=== PATIENT | male | born 1945 ===

== ENCOUNTER 2022-07-26 12:04 | Inpatient (IN) | payer MEDICARE ==
[~2022-07-26] VITALS: Ht 177.8 cm; Wt 113.3 kg
--- NOTE | 2022-07-26 11:59 | PM&R Post Admission Assessment ---
PM&R HP Date of Visit: Jul 26, 2022 Time of Visit: 12:45 History of Present Illness CC: Left knee replacement uncomplicated with slow recovery HPI: This is a 76yoWM patient of Dr Brown who presented to [facility] from [facility] in need of aggressive rehab to return home. His pain is well controlled. Right knee is chronically painful and needs a replacement on that joint also in the future. CPM ordered. Bowels are moving and he has chronic constipation. Voiding well. Checked meds and labs. Home meds restarted. Pain meds were helping. is of ill health and will remain in the room with the patient 25/11. Past Baipepw-Dbzmnf-Kwdkfe Hx Past Med/Social Hx: Reviewed Nursing Past Med/Soc Hx, Reviewed and Corrections made Patient Social History Marrital Status: Employed/Student: retired Alcohol Use: Denies Use Smoking Status: Former Smoker Past Medical History Surgeries: Orthopedic Cardiac: Hypertension Gastrointestinal: Gastroesophageal Reflux, Chronic Constipation Musculoskeletal: Arthritis, Gout PM&R Allergy/Meds/Data Review Allergies Coded Allergies: NSAIDS (Non-Steroidal Anti-Inflamma (Verified Allergy, Unknown, 07/26/22) STOMACH PROBLEMS. Penicillins (Verified Allergy, Unknown, Rash, 07/26/22) Sulfa (Sulfonamide Antibiotics) (Verified Allergy, Unknown, 07/26/22) codeine (Verified Allergy, Unknown, 07/26/22) SHORTNESS OF BREATH/WHEEZING hydrocodone (Verified Allergy, Unknown, 07/26/22) meperidine (Verified Allergy, Unknown, 07/26/22) COUGH, STOPS BREATHING. Home Medications Scheduled Acetaminophen (Tylenol), 650 MG PO BID, (Reported) Allopurinol (Allopurinol), 300 MG PO HS, (Reported) Apixaban (Eliquis), 5 MG PO BID, (Reported) Chlorthalidone (Chlorthalidone), 25 MG PO DAILY, (Reported) L.acidoph & Paracasei,B.lactis (Probiotic), 1 EACH PO DAILY, (Reported) Multivitamin (Multivitamin), 1 EACH PO DAILY, (Reported) Pantoprazole Sodium (Pantoprazole Sodium), 40 MG PO HS, (Reported) Polyethylene Glycol 3350 (Miralax), 17 GM PO DAILY AFTER BRKFST, (Reported) Psyllium Husk/Aspartame (Metamucil Fiber Singles Packet), 1 PACKET PO 1800 W/DINNER, (Reported) Ubidecarenone (Co Q-10), 100 MG PO DAILY, (Reported) Scheduled PRN Dicyclomine HCl (Dicyclomine HCl), 10 MG PO QID PRN for GI UPSET/IBS SYMPTOMS, (Reported) Current Medications Current Medications Reviewed Review of Systems Constitutional: see HPI, malaise, weakness EENTM: no symptoms reported Respiratory: no symptoms reported Cardiovascular: no symptoms reported Gastrointestinal: constipation Genitourinary: no symptoms reported Musculoskeletal: back pain, joint pain Skin: no symptoms reported Psychiatric/Neurological: Depressed All Other Systems Reviewed Negative Unless Noted: Yes Physical Exam Physical Exam Vital Signs Capillary Refill : Height, Weight, BMI Height: '" Weight: lbs. oz. kg; BMI Method: General Appearance: No Apparent Distress, WD/WN, Chronically ill, Obese Eyes: Bilateral Eye Normal Inspection, Bilateral Eye PERRL HEENT: PERRL/EOMI, Normal ENT Inspection, Pharynx Normal Neck: Full Range of Motion, Normal Inspection, Non Tender, Supple, Carotid Bruit Respiratory: Chest Non Tender, Lungs Clear, Normal Breath Sounds, No Accessory Muscle Use, No Respiratory Distress Cardiovascular: Regular Rate, Rhythm, No Edema, No Gallop, No JVD, No Murmur, Normal Peripheral Pulses Gastrointestinal: Normal Bowel Sounds, No Organomegaly, No Pulsatile Mass, Non Tender, Soft Back: Normal Inspection, No CVA Tenderness, No Vertebral Tenderness Extremity: Normal Capillary Refill, Normal Inspection, Normal Range of Motion (except left leg and right leg is also limited), Non Tender, No Calf Tenderness, No Pedal Edema Neurologic/Psychiatric: Alert, Oriented x3, No Motor/Sensory Deficits, Normal Mood/Affect Skin: Normal Color, Warm/Dry Lymphatic: No Adenopathy PM&R Medical Assessment & Plan REHAB/MEDICAL ASSESSMENT AND PLAN: REHAB IMPAIRMENT GROUP: Left knee replacement ETIOLOGIC DIAGNOSIS: Left knee replacement The comorbidities that impact the patients function and/or functional outcome by: advanced age, right knee chronic pain, fall risk, chronic constipation, gout REHAB PLAN: The patient is being admitted to our comprehensive inpatient rehabilitation facility and can tolerate the intensity of service consisting of at least: 180 minutes of therapy a day, 5 out of 7 days a week Rehab treatment will consist of: PT OT will focus on regaining function with use of AD in order to return home with ADL independence with his dependent spouse The patient/family has a good understanding of our discharge process and will b enefit from an interdisciplinary inpatient rehabilitation program. The patient has potential to make improvement and is in need of at least two of the following multidisciplinary therapies including but not limited to physical, occupational, speech, and prosthetics and orthotics. Additionally the patient will need services from respiratory, nutritional services, wound care, psycho logy, etc. (Customize this to each patient). Given the patients complex condition and risk of further medical complications, rehabilitation services cannot be safely or effectively provided at a lower level of care such as a prison facility. BARRIERS TO DISCHARGE: Right knee pain and weakness s/p left knee replacement ESTIMATED LOS: 7 days DISPOSITION: Home RELEVANT CHANGES SINCE PREADMISSION SCREENING: I have compared the patients medical and functional status at the time of the preadmission screening and there are: no changes PROGNOSIS: Good REHABILITATION GOALS: 1. PT OT will focus on regaining function with use of AD in order to return home with ADL independence with his dependent spouse All the above goals were reviewed with the patient and he/she is in agreement. By signing this document, I acknowledge that I have personally performed a full physical examination on this patient within 24 hours of admission to this inpatient rehabilitation facility and have determined the patient to be able to tolerate the above course of treatment at an intensive level for a reasonable period of time. I will be completing a detailed individualized Plan of Care for this patient by day #4 of the patients stay based upon the Preadmission Screen, the Post-Admission Evaluation, and the therapy evaluations. Admission Dx/Comorbidities: (1) S/P total knee arthroplasty ICD Codes: Z96.659 - Presence of unspecified artificial knee joint Assessment/Plan Assessment and Plan Assess & Plan/Chief Complaint Assessment: s/p left total knee replacement Chronic right knee pain Gout HTN Obesity Chronic constipation Plan: BM regimen Pain meds Aggressive PT OT CPM PHIL ORTIZ DO Jul 26, 2022 11:59
[2022-07-26 12:00] VITALS: BP 151/87
[~2022-07-26 12:04] MED LIST: ACET325T38 PO; ACETAMINOPHEN 325 MG TABLET PO PRN; ALLO300T2 PO; ALPRAZolam 0.25 MG (XANAX) TAB PO PRN; APIX5TAB PO; BISACODYL 10 MG SUPP (DULCOLAX) PR PRN; CALCIUM CARBONATE 500 MG (TUMS) TAB.CHEW PO PRN; CHLO25TA22 PO; DICY10CA12 PO; DOCUSATE SODIUM 100 MG (COLACE) CAP PO PRN; FLEET ENEMA ADULT 1 EA BTL PR PRN; L.AC1CAP6 PO; LACTULOSE SYRUP 10GM/15ML (ENULOSE) 30ML UDC PO PRN; LOPERAMIDE 2 MG (IMODIUM) TABLET PO PRN; MELATONIN 3 MG TABLET PO PRN; MULT-1136 PO; ONDANSETRON 4 MG (ZOFRAN) ORAL DISSOLVE TAB PO PRN; PANT40TA52 PO; POLY17PO6 PO; PSYL3.4P5 PO; UBID100C44 PO; diphenhydrAMINE 25 MG TAB (BENADRYL) PO PRN
--- OUTSIDE RECORDS SUMMARY | 2022-07-26 12:15 | XMS REPORT | Encounter Summary ---
Author Author [facility] Organization [facility] Address Unknown Phone Unavailable Care Team Providers Care Nissan Sales Consultant Name Role Phone Naif Adams MD PCP Encounter Details Care Team Description Date Type Department Kwesi Delgado MD [address] [place] [address] 06/24/[address] [facility] Cardiology [address] , [facility] [address] [place] [address] Social History Date Tobacco Use Types Packs/Day Years Used Quit: 1974 Smoking Tobacco: Former Cigarettes Smokeless Tobacco: Never Comments Alcohol Use Standard Drinks/Week Never 0 (1 standard drink = 0.6 o z pure alcohol) Alcohol Habits Answer Date Recorded How often do you have a drink containing alcohol? Never 09/23/2019 How many drinks containing alcohol do you have on No t asked a typical day when you are drinking? How often do you have six or more drinks on one Not asked occasion? Sex Assigned at Date Recorded Male 09/24/2019 11:46 AM CDT Industry Job Start Date Occupation Not on file Not on file Not on file documented as of this encounter Miscellaneous Notes * Telephone Encounter - Noemy Rubio - 06/24/2022 10:56 AM CST Patient called and he is needing Eliquis 5MG refilled. However, he does not want it sent electronically to any pharmacy. He would like to come in and last picker the prescription to take to the pharmacy of his choosing. Please call Farzad at [phone] when the refill is put in so he knows when he can come pick it up. Thanks MACY PICKING TECH documented in this encounter Plan of Treatment Care Team Description Date Type Specialty Vladimir Gonzalez MD [address] [place] [address] 02/07/2023 Office Visit Cardiology documented as of this encounter Visit Diagnoses Not on filedocumented in this encounter Care Teams Start Date End Date Nissan Sales Consultant Relationship Specialty 12/10/17 Naif Adams MD PCP - General [place] [id number] [place] [address] documented as of this encounter
--- OUTSIDE RECORDS SUMMARY | 2022-07-26 12:15 | XMS REPORT | Clinical Summary ---
Author Author [facility] Address Unknown Phone Unavailable Care Team Providers Care Speeder Tender Name Role Phone Naif Adams MD PCP Allergies Comments Active Allergy Reactions Severity Noted Date Codeine Dyspnea High 11/08/2016 Hydrocodone Unknown 11/27/2017 Stops breathing. Meperidine Cough High 03/13/2020 STOMACH PROBLEMS Nsaids (Non-Steroidal Other (see 09/17/2021 Anti-Inflammatory Drug) comments) Penicillins Unknown, Medium 11/08/2016 Urticaria Sulfa (Sulfonamide Unknown 11/27/2017 Antibiotics) Medications End Date Status Medication Sig Dispensed Refills Start Date Active psyllium, aspartame, Take 1 packet 0 (METAMUCIL) 3.4 gram by mouth 1 packet (one) time each day. Active acetaminophen (TYLENOL) Take 650 mg 0 325 mg tablet by mouth every 6 (six) hours if needed for mild pain (1-3). Active allopurinol (ZYLOPRIM) Take 300 mg 0 300 mg tablet by mouth 1 (one) time each day. Active chlorthalidone (HYGROTON) Take 25 mg by 0 06/06 25 mg tablet mouth 1 (one) 0 time each day. Active busPIRone (BUSPAR) 15 mg Take 17.5 mg 0 02/22 tablet by mouth. 0 Active polyethylene glycol Take 17 g by 0 (MIRALAX) 17 gram/dose mouth. powder Active gabapentin (NEURONTIN) 0 300 mg capsule 2 Active Lactobacillus acidophilus Take by 0 (lactobacill.acidophilus, mouth. bulk,) 1 billion unit/gram powder Active Protonix 40 mg EC tablet Take by mouth 0 09/24 1 (one) time 2 each day. Active coenzyme Q10 100 mg Take 100 mg 0 capsule by mouth in the morning. Active quinapriL (AccupriL) 20 Take 1 tablet 0 mg tablet (20 mg total) 2 by mouth 1 (one) time each day. 06/24/2023 Active apixaban (ELIQUIS) 5 mg Take 1 tablet 180 tablet 3 tablet (5 mg total) 3 by mouth 2 (two) times per day. Active Problems Problem Noted Date BMI 37.0-37.9, adult 12/06/2020 Benign hypertensive heart disease without congestive heart failure 06/09/2020 Personal history of tobacco use 06/09/2020 Class 2 obesity in adult 06/09/2020 Nonrheumatic mitral (valve) insufficiency 11/27/2017 Other nonrheumatic tricuspid valve disorders (CODE) 11/27/2017 Hyperlipidemia 11/27/2017 Essential (primary) hypertension 11/27/2017 Permanent atrial fibrillation 11/27/2017 Other hypertrophic cardiomyopathy 11/27/2017 Permanent atrial fibrillation 11/27/2017 Encounters Care Team Description Date Type Specialty Kwesi Delgado MD 06/24/2022 Telephone Cardiology Blob, Scan Provider 05/15/2022 Clinic Scan Only Encounter Key Juárez RN cardiac clearance 05/15/2022 Telephone Cardiology from Last 3 Months Family History Medical History Relation Comments Heart disease Father Hypertension Father Breast cancer Mother Heart murmur Mother ETHEL disease Sister No Known Problems Son 1 Heart failure Son 2 Relation Status Comments Father Mother Sister Alive Son 1 Alive Son 2 Social History Date Tobacco Use Types Packs/Day Years Used Quit: 1973 Smoking Tobacco: Former Cigarettes Smokeless Tobacco: Never [...] file Not on file Not on file Last Filed Vital Signs Reading Time Taken Comments Vital Sign 138/78 12/19/2021 1:56 PM CDT Blood Pressure 79 12/19/2021 1:56 PM CDT Pulse - - Temperature 10 12/19/2021 1:56 PM CDT Respiratory Rate 96% 12/19/2021 1:56 PM CDT Oxygen Saturation - - Inhaled Oxygen Concentration 120 kg (264 lb) 12/19/2021 1:56 PM CDT Weight 177.8 cm (5' 10") 12/19/2021 1:56 PM CDT Height 37.88 12/19/2021 1:56 PM CDT Body Mass Index Plan of Treatment Care Team Description Date Type Specialty Vladimir Gonzalez MD [address] [place] [address] 02/07/2023 Office Visit Cardiology Health Maintenance Due Date Last Done Comments MMR Vaccines (1 of 1 - 1945 Standard series) Varicella Vaccines (1 of 1945 2 - 2-dose childhood series) Depression Screening 1956 Hepatitis C Screening 1962 Zoster Vaccines (1 of 2) 1994 Pneumococcal 65+ Yr (1 - 2009 PCV) DTaP,Tdap,and Td Vaccines 01/17/2010 01/16/2010, (1 - Tdap) 10/03/1993 Medicare Wellness 01/18/2021 01/19/2020 COVID-19 Vaccine (5 - 10/16/2021 08/21/2021, Booster for Moderna 03/07/2021, series) 06/27/2020, Additional history exists Influenza Vaccine Completed 01/14/2022, 01/19/2020 HIB Vaccines Aged Out No longer eligible based on patient's age to complete this topic HPV Vaccines Aged Out No longer eligible based on patient's age to complete this topic Hepatitis A Vaccines Aged Out No longer eligibl e based on patient's age to complete this topic Hepatitis B Vaccines Aged Out No longer eligibl e based on patient's age to complete this topic IPV Vaccines Aged Out No longer eligible based on patient's age to complete this topic Meningococcal Vaccine Aged Out No longer eligib le based on patient's age to complete this topic Results Not on filefrom Last 3 Months Insurance Type Payer Benefit Subscriber ID Effective Phone Address Plan / Dates Group MEDICARE MEDICARE [id number] 2009-P 2019 PART A AND resent [id number] [facility] [id number] [facility] [id number] 2017-P [phone] [address] [facility] [address] [id number] [place] [address] Care Teams Start Date End Date Speeder Tender Relationship Specialty 12/10/17 Naif Adams MD PCP - General [facility] [place] [address]
--- NOTE | 2022-07-26 13:06 | Occupational Therapy Eval ---
OT Evaluation-General/PLF Medical Diagnosis Admission Date Jul 26, 2022 at 12:04 Medical Diagnosis: S/P L TKA Onset Date: Aug 23, 2022 Therapy Diagnosis Therapy Diagnosis: decreased ADL status Precautions Precautions/Isolations: Fall Prevention, Standard Precautions Referral Physician: Heidi Franklin Reason: Evaluation/Treatment Medical History Additional Medical History afib, gastric ulcer, GERD, HTN, IBS, arthritis, R ankle fusion (per pt report) Current History s/p L TKA 07/24/22 Social History Home: Single Level Current Living Status: Spouse Entry Into Home: Level Entry (through garage) ADL-Prior Level of Function SCALE: Activities may be completed with or without assistive devices. 4-Szuaqafkkq-ndqnnai completes the activity by him/herself with no assistance from a helper. 5-Set-up or Clean-up Assistance-helper sets up or cleans up; patient completes activity. [place] assists only prior to or following the activity. 4-Supervision or Touching Assistance-helper provides verbal cues and/or touching/steadying and/or contact guard assistance as patient completes activity. Assistance may be provided throughout the activity or intermittently. 3-Partial/Moderate Assistance-helper does LESS THAN HALF the effort. [place] lifts, holds or supports trunk or limbs, but provides less than half the effort. 2-Substantial/Maximal Assistance-helper does MORE THAN HALF the effort. [place] lifts or holds trunk or limbs and provides more than half the effort. 8-Jrsuatkqm-ipsthb does ALL the effort. Patient does none of the effort to complete the activity. Or, the assistance of 2 or more helpers is required for the patient to complete the activity. If activity was not attempted, code reason: 7-Patient Refused. 9-Not Applicable-not attempted and the patient did not perform the activity before the current illness, exacerbation or injury. 10-Not Attempted due to Environmental Limitations-(lack of equipment, weather restraints, etc.). 88-Not Attempted due to Medical Conditions or Safety Concerns. ADL PLOF Comments Pt reports IND with ADLs and functional mobility at [facility]. Pt has used b/l crutches for ~1 year, and 1 crutch for the last 6-8 years for functional mobility. Self Care: Independent Functional Cognition: Independent DME/Equipment: Bath Chair, Shower OT Current Status Subjective Pt reports pain in R knee (0 at rest, 5-7/10 with activity), L knee (2-3 at rest, 8/10 with activity). Mental Status/Objective Patient Orientation: Person, Place, Time, Situation Attachments: Polar Pack, Other-See Comments (CPM) Current Glasses/Contacts: Yes Hearing Aids: No Dentures/Partials: No Hand Dominance: Right Upper Extremity ROM WFL, BUE shoulder flexion to approx 150 degrees Upper Extremity Coordination WFL Upper Extremity Sensation WFL Upper Extremity Strength grossly 4-/5 ADL-Treatment Eating (QC): 6 Oral Hygiene (QC): 5 Shower/Bathe Self (QC): 3 (assist buttocks and LLE lower legs/feet) Upper Body Dressing (QC): 5 Lower Body Dressing (QC): 3 (Mod A. Pt able to doff with CGA, assist with threading BLEs, then pt able to perform pant hike) On/Off Footwear (QC): 2 (Max A seated on shower chair to don/doff. Pt able to don seated EOB with SBA.) Toileting Hygiene (QC): 3 (assist with buttocks, pt able to manage pants) Other Treatments OT evaluation complete. OT/PT cotreat due to skill of 2 clinicians required which a rehabilitation program coordinator could not perform in order to coordinate UE/LES, decrease fall risk, and due to pt's limitations in pain, activity tolerance, mobility and transfers. OT focused on UE placement, ADLs, and cues for sequencing and safety. PT focused on LE placement, gross overall movement, and transfers/mobility. PT demo'd ability to don gripper socks on EOB with SBA, pt able to support LLE on bed to reach feet for task. Pt performed functional mobility and transfers, including car transfer, w/c mobility, bed mobility and functional mobility with FWW (please refer to PT evaluation for QC scores associated with mobility/transfers). Pt taken to his room, transferring to SC. Pt doffed clothes, completed shower, then donned clothes. Pt had increased difficulty with footwear seated on SC as compared to EOB. Pt states he typically gets dressed EOB at home. Pt also reports he is fatigued and having increased knee pain making LE dressing/footwear more difficult on SC. Pt transferred to w/c, CPM set up by PTJennie, as OT cleaned up from ADL session. Pt transferred from w/c to EOB, CPM placed on pt and adjustments made for proper fit. Polar pack applied to LLE. Post tx, pt in bed, call light in reach and all needs met. Education OT Patient Education: Correct positioning, Energy conservation, Modified ADL t echniques, Progress toward Goal/Update tx plan, Purpose of tx/functional activities, Rehab process Teaching Recipient: Patient Teaching Methods: Discussion Response to Teaching: Verbalize Understanding BIMS CAM BIMS Expression of Ideas and Wants: Without Difficulty Understanding Verbal Content: Understands Brief Interview/Mental Status: Yes IRF NOHEMY BIMS: IRF NOHEMY BIMS Response (Comments) Value Repitition of Three Words Three 3 Recalls Socks Yes, No Cue Required 2 Recalls Blue Yes, No Cue Required 2 Recalls Bed Yes, No Cue Required 2 Year Correct 3 Month Accurate Within 5 Days 2 Day Correct 1 Total 15 Should Staff Asses. Mental [address] No CAM Mental Status Change/Baseline: 0 Inattention: 0 Disorganized thinkin Altered level of consciousness: 0 OT Short Term Goals Short Term Goals Time Frame: Aug 02, 2022 Shower/bathe self: 4 Lower body dressin Putting on/taking off footwear: 4 OT Half-Way Goals Bilingual Recruiter Goals Time Frame: Aug 23, 2022 Eating (QC): 6 Oral Hygiene (QC): 6 Toileting Hygiene (QC): 6 Shower/Bathe Self (QC): 6 Upper Body Dressing (QC): 6 Lower Body Dressing (QC): 6 On/Off Footwear (QC): 6 Additional Goals: 1-Demonstrate ADL Tasks, 2-Verbalize Understanding, 3- ImproveStrength/Rivka 1=Demonstrate adherence to instructed precautions during ADL tasks. 2=Patient will verbalize/demonstrate understanding of assistive devices/modifications for ADL. 3=Patient will improve strength/tolerance for activity to enable patient to perform ADL's. OT Education/Plan Problem List/Assessment Assessment: Decreased Activ Tolerance, Decreased UE Strength, Impaired Funct Balance, Impaired I ADL's, Impaired Self-Care Skills Discharge Recommendations Plan/Recommendations: Continue POC Treatment Plan/Plan of Care Patient would benefit from OT for education, treatment and training to promote independence in ADL's, mobility, safety and/or upper extremity function for ADL's. Plan of Care: ADL Retraining, Functional Mobility, Group Exercise/Act as Ind, UE Funct Exercise/Act Treatment Duration: Aug 23, 2022 Frequency: At least 5 of 7 days/Wk (IRF) Estimated Hrs Per Day: 1.5 hours per day Agreement: Yes Rehab Potential: Good Time Start Time: 12:50 Stop Time: 14:30 DATE: Jul 26, 2022 Total Time Billed (hr/min): 90 Billed Treatment Time OT eval [id number] (10'), PT eval [id number] (not billed), cotreat [id number] (80') 1, EVM (10'), ADL 2 (35') FA 3 (45') ODILIA NUNN OT Jul 26, 2022 13:06
[2022-07-26] MEDS ORDERED: DICYCLOMINE 10 MG (BENTYL) CAP PO PRN (13:15)
--- NOTE | 2022-07-26 15:24 | Speech Therapy Progress Note ---
Therapy Progress Note ST cognitive linguistic evaluation not warranted at this time. Please re-consult speech pathology services with additional needs. Thank you. VERN KELLY Jul 26, 2022 15:24
--- NOTE | 2022-07-26 15:45 | Physical Therapy Evaluation ---
PT Evaluation-General Medical Diagnosis Admission Date Jul 26, 2022 at 12:04 Medical Diagnosis: S/P L TKA 07/24/22 Onset Date: Aug 23, 2022 Therapy Diagnosis Therapy Diagnosis: Decreased ROM/strength (L) knee, gait difficulty, impaired mobility, pain Precautions Precautions/Isolations: Fall Prevention, Standard Precautions Monitor incision for s/s of infection Weight Bear Status Right Lower Extremity: Right Weight Bearing/Tolerated Left Lower Extremity: Left Weight Bearing/Tolerated Referral Physician: Heidi Reason for Referral: Evaluation/Treatment Medical History Pertinent Medical History: Atrial Fib, Arthritis, GERD, HTN Additional Medical History gastric uler, IBS, inflammatory arthritis. Hx (R) ankle fusion 1980, Reviewed History: Yes Social History Home: Single Level Current Living Status: Spouse Entry Into Home: Level Entry (through garage) PT Steps Into Home: 0 (0 thru garage. 3-4 other entrance.) PT Steps Inside Home: 0 Prior Prior Level of Function SCALE: Activities may be completed with or without assistive devices. 3-Gxlycmtnvl-rznuqzs completes the activity by him/herself with no assistance from a helper. 5-Set-up or Clean-up Assistance-helper sets up or cleans up; patient completes activity. [place] assists only prior to or following the activity. 4-Supervision or Touching Assistance-helper provides verbal cues and/or touching/steadying and/or contact guard assistance as patient completes activity. Assistance may be provided throughout the activity or intermittently. 3-Partial/Moderate Assistance-helper does LESS THAN HALF the effort. [place] lifts, holds or supports trunk or limbs, but provides less than half the effort. 2-Substantial/Maximal Assistance-helper does MORE THAN HALF the effort. [place] lifts or holds trunk or limbs and provides more than half the effort. 4-Jqvbbouqh-gwixqj does ALL the effort. Patient does none of the effort to complete the activity. Or, the assistance of 2 or more helpers is required for the patient to complete the activity. If activity was not attempted, code reason: 7-Patient Refused. 9-Not Applicable-not attempted and the patient did not perform the activity before the current illness, exacerbation or injury. 10-Not Attempted due to Environmental Limitations-(lack of equipment, weather restraints, etc.). 88-Not Attempted due to Medical Conditions or Safety Concerns. Bed Mobility: 6 Transfers (B,C,W/C): 6 (with 1-2 crutches) Gait: 6 (with 1-2 crutches) Stairs: 9 (level entry - did not attempt stairs prior due to knee pain (B)) Wheelchair Mobility: 9 Indoor Mobility (Ambulation): Independent Stairs: Needed Some Help Prior Devices Use: Other-see list below Prior Device Use: 1-2 crutches due to (B) knee pain PT Evaluation-Current Subjective Rates (L)/surgical knee pain as 2-3/10 at rest, 8/10 with activity. 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 States he has a recumbent bike at home that he was using for exercise. Pain Section J - Health Conditions 1. Rarely or not at all 2. Occasionally 3. Frequently 4. Almost constantly 8. Unable to answer Pain Effect on Sleep: 2 Pain Interference with Therapy: 4 Pain Interference w/Day-to-Day: 4 Objective Patient Orientation: Person, Place, Situation ROM/Strength ROM Lower Extremities (L) knee AROM 15-90 sitting EOB. (R) knee flexion to 115 degrees, full extension. Limited (R) ankle ROM due to fusion. (L) ankle DF to neutral only. Strength Lower Extremities (R) hip flexion 4/5, knee extension/flexion 5/5 with some palpable crepitus. (R) ankle NT due to fusion. (L) hip flexion 3-/5, knee extension 3-/5, flexion 3-/5, ankle DF/PF 4/5. Integumentary/Posture Integumentary (L) knee incision covered with occlusive dressing, but erythema is noted with exceptional warmth to touch. Circumferential measurements for edema: 48 cm (L) knee joint line, 39.5 cm (R) knee joint line. Sensory Vision: Wears Glasses Hearing: Functional Hand Dominance: Right Sensation Right Lower Extremit: Intact Sensation Left Lower Extremity: Intact Transfers Roll Left & Right (QC): 5 (with bed rail) Sit to Lying (QC): 3 (mod (A) to lift LE's onto bed.) Lying to Sitting/Side of Bed(Q: 4 (with use of bed rail) Sit to Stand (QC): 3 (mod (A) to FWW with encouragment and v.c. for hand placement) Chair/Fhr-ck-Nwczg Xfer(QC): 3 (min (A) once upright with FWW to step/stand pivot, exceptionally decreased step length (B).) Toilet Transfer (QC): 3 (min-mod (A) of 1) Car Transfer (QC): 3 (mod (A) to lift (L) LE into car) Gait Does the Patient Walk?: Yes Mode of Locomotion: Both Anticipated Mode of Locomotion: Both Walk 10 feet (QC): 3 (mod (A) with FWW, exceptionally small step length (B), increased time to complete. Pain limited distance this date.) Walk 50 ft with 2 Turns(QC): 88 Walk 150 ft (QC): 88 Walking 10ft/uneven surface-QC: 88 Gait Assistive Device: FWW Comments/Gait Description Patient states he thinks he would do better with crutches - educated that FWW is a much more supportive device at this time. 3 separate bouts of ambulation completed - 10' max distance with exceptionally short step length (B), cues for correct walker use to decreased to WBAT, limited by pain and greatly reduced activity tolerance. Wheelchair Training Does the Pt Use a Wheelchair?: Yes Wheel 50 ft with 2 turns (QC): 5 Wheel 150 ft (QC): 5 Type of Wheelchair: Manual Stairs #of Steps: 0 1 Step (curb) (QC): 88 (patient's difficulty advancing (B) LE's did not allow for safe curb step ambulation) 4 Steps (QC): 88 12 Steps (QC): 88 Balance Sitting Static: Normal Sitting Dynamic: Good Standing Static: Poor Standing Dynamic: Poor Picking up an Object (QC): 88 Special Test Comments KOS JR: 29 = 39% function Elderly Mobility Index: 08/22 - dependent with mobility Treatment CPM set-up and set at 0-65 -- education with patient, family and nursing staff of CPM schedule, and schedule posted in patient's room. Assessment/Needs 76 year old male who is 2 days s/p (L) TKR with resultant ROM/Strength deficits, edema, pain and limitations in all aspects of mobility and gait. Patient requires skilled therapy services in order to reduce edema and (L) knee pain, improve gait balance, functional mobility, improve knee ROM/strength and maximize independence for return home. Patient would benefit from CPM to ensure that ROM progresses at (L) knee. Co-treatment indicated due to high acuity with patient's pain, and significant mobility deficits at this time. Rehab Potential: Good Equipment Needs FWW, w/c as of this date, CPM, cryocuff PT Contact Lens Fitter Goals Jail Goals PT Jail Goals Time Frame: Aug 09, 2022 Roll Left to Right (QC): 6 Sit to Lying (QC): 6 Lying-Sitting on Side/Bed(QC): 6 Sit to Stand (QC): 6 ( to FWW) Chair/Fpg-kq-Bmkvt Xfer(QC): 6 (with FWW) Toilet/Commode Transfer (QC): 6 (with FWW) Car Transfer (QC): 6 ( with FWW) Does the Patient Walk: Yes Walk 10 feet (QC): 6 ( with FWW with improved step length (B).) Walk 10ft-Uneven Surface(QC): 6 (with FWW) Walk 50ft with 2 Turns (QC): 6 (with FWW with improved step length (B)) Walk 150 ft (QC): 5 (with FWW (increased distances may be limited by (R)/nonsurgical knee pain)) Does the Pt use WC or Scooter?: Yes Wheel 50 feet with 2 turns (QC: 6 Type: Manual Wheel 150 feet: 6 Type: Manual 1 Step (curb) (QC): 5 (with FWW) 4 Steps (QC): 4 (with (B) rails (may be limited by (R)/nonsurgical knee pain)) 12 Steps (QC): 9 Picking up an Object (QC): 5 LTGs: Pt to demonstrate (L) knee AROM of 5-100 degrees. Patient to demonstrate 1 cm reduction in (L) knee edema Patient to demonstrate Elderly Mobility Index score of 13/20 or greater. Patient to demonstrate of KOS JR score of 11 or less. PT Plan Problem List Problem List: Activity Tolerance, Functional Strength, Safety, Balance, Gait, Transfer, Bed Mobility, ROM Pain and edema (L) knee Treatment/Plan Treatment Plan: Continue Plan of Care Treatment Plan: Bed Mobility, Education, Functional Activity [place], Functional Strength, Group Therapy, Gait, Safety, Therapeutic Exercise, Transfers, Other CPM 2x/day for 2 hr each not to exceed 90 degrees of flexion. Cryocuff. Treatment Duration: Aug 09, 2022 Frequency: At least 5 of 7 days/Wk (IRF) Estimated Hrs Per Day: 1.5 hours per day Patient and/or Family Agrees t: Yes Safety Risks/Education Patient Education: Gait Training, Transfer Techniques, Correct Positioning, Instructions to Caregiver, Safety Issues Teaching Recipient: Patient, Family Teaching Methods: Demonstration, Discussion Response to Teaching: Reinforcement Needed Discharge Recommendations Therapy Discharge Recommendati: Home & Family, Post Acute PT Equpiment Recommendations-D/C: Front Wheeled Walker Time Time In: 1300 Time Out: 1430 DATE: Jul 26, 2022 Total Billed Treatment Time: 90 Total Billed Treatment 10' evaluation, 80 minutes co-treatment due to patient's acuity with pain and mobility limitations. Jennie Sosa PT Jul 26, 2022 15:45
[2022-07-26] MEDS: PSYLLIUM PO SCH (17:15)
[2022-07-26 20:13] VITALS: BP 119/66
[2022-07-26] MEDS ORDERED: polyethylene glycoL POWDER 17 GM (MIRALAX) PACK PO SCH (21:00)
[2022-07-26] MEDS: APIXABAN 5 MG (ELIQUIS) TABLET PO SCH (22:19)
[2022-07-26] MEDS: DOCUSATE SODIUM 100 MG (COLACE) CAP PO SCH (22:19)
[2022-07-26] MEDS: ALLOPURINOL 300 MG (ZYLOPRIM) TAB PO SCH (22:19)
[2022-07-26] MEDS: SENNA W/DOCUSATE (SENOKOT S) TABLET PO SCH (22:19)
[2022-07-26] MEDS: PANTOPRAZOLE 40 MG (PROTONIX) TAB PO SCH (22:19)
[2022-07-26] MEDS: ACETAMINOPHEN 325 MG TABLET PO SCH (22:20)
--- NOTE | 2022-07-27 05:46 | Individualized Plan of Care ---
Individualized Plan of Care Rehab Nursing IPOC Order Admission Date Jul 26, 2022 at 12:04 Current Orders Orders Nursing Communication (Order) (07/26/22 10:17) Follow-Up Appointment (07/26/22 11:47) Admission Order(Inpt,Obs,Sdc) (07/26/22 11:56) Vital Signs: Per Unit Policy ( 08,16,00 (07/26/22 11:56) Jed Hose 09,21 (07/26/22 11:56) Sequential Compression Device (07/26/22 11:56) Division Order Analyst-Inpt Rehab Con (07/26/22 11:56) Rehab Nursing Orders-Ipoc (07/26/22 11:56) Physical Therapy Rehab Orders (07/26/22 11:56) Occupational Therapy Rehab Ord (07/26/22 11:56) Speech Therapy Rehab Orders (07/26/22 11:56) Cbc With Automated Diff (07/27/22 06:00) Comprehensive Metabolic Panel (07/27/22 06:00) Precautions (Aru) (07/26/22 11:56) Weekly Weight WEEK (07/26/22 11:56) Rehab-Intensity Of Therapy (07/26/22 11:56) Initiate Admission Nursing Pro .admission (07/26/22 11:56) Alprazolam Tablet (Xanax Tablet) (07/26/22 12:00) Calcium Carbonate Chew Tablet (Antacid C (07/26/22 12:00) Diphenhydramine Tablet (Benadryl Tablet) (07/26/22 12:00) Docusate Sodium Capsule (Colace Capsule) (07/26/22 21:00) Docusate Sodium Capsule (Colace Capsule) (07/26/22 12:00) Bisacodyl Suppository (Dulcolax Supposit (07/26/22 12:00) Lactulose Oral Solution (Enulose Oral So (07/26/22 12:00) Na Phos/Na Biphos Enema (Fleet Enema James (07/26/22 12:00) Loperamide Tablet (Imodium Tablet) (07/26/22 12:00) Melatonin Tablet (Melatonin Tablet) (07/26/22 12:00) Polyethylene Glycol Powder Pkt (Miralax (3/24/23 21:00) Ondansetron Oral Dissolve Tab (Zofran (07/26/22 12:00) Senna S Tablet (Senokot S Tablet) (07/26/22 21:00) Acetaminophen Tablet/Caplet (Tylenol T (07/26/22 12:00) Initiate Admission Nursing Pro .admission (07/26/22 11:56) Admission Arrival Bed Request (07/26/22 12:04) General/Regular (07/26/22 Breakfast) Acetaminophen Tablet/Caplet (Tylenol T (07/26/22 21:00) Allopurinol Tablet (Zyloprim Tablet) (07/26/22 21:00) Apixaban Tablet (Eliquis Tablet) (07/26/22 21:00) Dicyclomine Capsule (Bentyl Capsule) (07/26/22 13:15) Pantoprazole Tablet (Protonix Tablet) (07/26/22 21:00) Polyethylene Glycol Powder Pkt (Miralax (07/27/22 09:00) Psyllium Powder (Metamucil Powder) (07/26/22 17:00) (Nf) Chlorthalidone (07/27/22 09:00) Lactobacillus Acidophilus Cap (Acidophil (07/27/22 09:00) Therapeutic Multivitamin Tab (Vitamins, (07/27/22 09:00) (Nf) Ubidecarenone (Co Q-10) (07/27/22 09:00) Oxycodone Immediate Rel Tablet (Oxyir Ta (07/26/22 13:30) Tramadol Tablet (Ultram Tablet) (07/26/22 13:30) Iron Test (Fe) (07/27/22 06:00) Vitamin B 12 (07/27/22 06:00) Continuous Passive Motion (07/26/22 14:19) Patient Visit (07/26/22 ) Pt Eval Moderate Complexity (07/26/22 ) Cpm: Initial Session (07/26/22 ) Cpm Pads (07/26/22 ) Functional Activities, Ea 15 (07/26/22 ) Exercise Therap, Ea 15 Min (07/26/22 ) Gait Training, Ea 15 Min (07/26/22 ) Manual Differential (07/27/22 05:44) Hydrochlorothiazide Cap/Tablet (Hctz Cap (07/27/22 12:15) Patient May Use Own Med,Single (Patient (07/27/22 13:00) (Nf) Chlorthalidone (07/27/22 13:00) Patient Visit (07/27/22 ) Gait Training, Ea 15 Min (07/27/22 ) Rehab Nursing Orders: Ongoing Assess. of Function Status, Bladder Management, Bladder Scan, Bladder Training, Bowel Management, Bowel Training, Disease Management & Educaiton, DVT Prophylaxis, Fall Prevention, Fluid/Electro lyte/Nutrition Mgmt, Infection Prevention, Medication Management & Education, Management of Risks & Complications, Management of Skin Intergrity, Nutrition Management, Pain Management, Patient/Family Support, Safety Management, Wound Management Intensity of Therapy to be met Patient to be seen: Min.3h per day/5 of 7d PT IPOC Problem List: Activity Tolerance, Functional Strength, Safety, Balance, Gait, Transfer, Bed Mobility, ROM Treatment Plan: Continue Plan of Care Bed Mobility, Education, Functional Activity [place], Functional Strength, Group Therapy, Gait, Safety, Therapeutic Exercise, Transfers, Other Treatment Duration: Aug 09, 2022 Frequency: At least 5 of 7 days/Wk (IRF) Estimated Hrs Per Day: 1.5 hours per day OT IPOC Problems: Decreased Activ Tolerance, Decreased UE Strength, Impaired Funct Balance, Impaired I ADL's, Impaired Self-Care Skills OT Treatment, Training and Edu: Yes Plan of Care: ADL Retraining, Functional Mobility, Group Exercise/Act as Ind, UE Funct Exercise/Act Treatment Duration: Aug 23, 2022 Frequency: At least 5 of 7 days/Wk (IRF) Estimated Hrs Per Day: 1.[address] IPOC Speech Therapy Treatment Plan: Discontinue ST Treatment Duration: Jul 26, 2022 Frequency: Modified Program (IRF) Estimated Hrs Per Day: Other Division Order Analyst/Case Mgmt Division Order Analyst/Case Managemen: Discharge Planning Dietitian/Seed Corn Manager Production Dietitian/Seed Corn Manager Production to monitor nutritional status and make changes and/or recommendations as needed and work with speech pathology on dietary upgrades as the occur. Physician IPOC Medical Issues being managed closely and that require the 24 hour availability of a physician: REcent left TKA with very slow recovery and high risk for falls and decompensation will require close monitoring of BP and constipation Medical Issues: Bowel/Bladder Function, DVT Prophylaxis, Falls Precautions, Fluid/Electrolyte/Nutrition Balance, Infection Protection, Pain Management, Wound Care Brief Synthesis of Preadmission Screen, Post-Admission Evaluation, and Therapy Evaluations: PT OT will focus on regaining independence with use of AD and maintain CPM machine in order to regain independence in ADL's Medical Prognosis: Good Anticipated Length of Stay: 7 days PHIL OTRIZ DO Jul 27, 2022 05:46
--- NOTE | 2022-07-27 05:46 | PM&R Progress Note ---
Subjective HPI/CC On Admission Date Seen by Provider: Jul 27, 2022 Time Seen by Provider: 12:00 Subjective/Events-last exam 07/27/2022: Much improved overall Pain controlled BM+ Laxatives ordered Labs reviewed No issues except ice machine leaked last night Review of Systems General: Fatigue, Malaise Objective Exam Vital Signs Vital Signs Date Time Temp Pulse Resp B/P (MAP) Pulse Ox O2 Delivery O2 Flow Rate FiO2 07/27/22 19:48 37.3 92 16 113/66 (82) 92 Room Air Capillary Refill : General Appearance: No Apparent Distress, WD/WN, Chronically ill, Obese HEENT: PERRL/EOMI, Normal ENT Inspection, Pharynx Normal Neck: Full Range of Motion, Normal Inspection, Non Tender, Supple, Carotid Bruit Respiratory: Chest Non Tender, Lungs Clear, Normal Breath Sounds, No Accessory Muscle Use, No Respiratory Distress Cardiovascular: Regular Rate, Rhythm, No Edema, No Gallop, No JVD, No Murmur, Normal Peripheral Pulses Gastrointestinal: Normal Bowel Sounds, No Organomegaly, No Pulsatile Mass, Non Tender, Soft Back: Normal Inspection, No CVA Tenderness, No Vertebral Tenderness Extremity: Normal Capillary Refill, Normal Inspection, Normal Range of Motion (except left leg and right leg is also limited), Non Tender, No Calf Tenderness, No Pedal Edema Neurologic/Psychiatric: Alert, Oriented x3, No Motor/Sensory Deficits, Normal Mood/Affect Skin: Normal Color, Warm/Dry Lymphatic: No Adenopathy Results/Procedures Lab Laboratory Tests 07/27/22 05:44 Patient resulted labs reviewed. FIM Transfers Therapy Code Descriptions/Definitions Functional [place] Measure: 0=Not Assessed/NA 4=Minimal Assistance 1=Total Assistance 5=Supervision or Setup 2=Maximal Assistance 6=Modified [place] 3=Moderate Assistance 7=Complete IndependenceSCALE: Activities may be completed with or without assistive devices. 0-Ikmpsibgwi-vwpqfep completes the activity by him/herself with no assistance from a helper. 5-Set-up or Clean-up Assistance-helper sets up or cleans up; patient completes activity. [place] assists only prior to or following the activity. 4-Supervision or Touching Assistance-helper provides verbal cues and/or touching/steadying and/or contact guard assistance as patient completes activity. Assistance may be provided throughout the activity or intermittently. 3-Partial/Moderate Assistance-helper does LESS THAN HALF the effort. [place] lifts, holds or supports trunk or limbs, but provides less than half the effort. 2-Substantial/Maximal Assistance-helper does MORE THAN HALF the effort. [place] lifts or holds trunk or limbs and provides more than half the effort. 1-Ddbtdzfqh-hqxemf does ALL the effort. Patient does none of the effort to complete the activity. Or, the assistance of 2 or more helpers is required for the patient to complete the activity. If activity was not attempted, code reason: 7-Patient Refused. 9-Not Applicable-not attempted and the patient did not perform the activity before the current illness, exacerbation or injury. 10-Not Attempted due to Environmental Limitations-(lack of equipment, weather restraints, etc.). 88-Not Attempted due to Medical Conditions or Safety Concerns. Roll Left to Right (QC): 5 (with bed rail) Sit to Lying (QC): 3 (mod (A) to lift LE's onto bed.) Sit to Stand (QC): 3 (mod (A) to FWW with encouragment and v.c. for hand placement) Chair/Hfp-bo-Toitf Xfer(QC): 3 (min (A) once upright with FWW to step/stand pivot, exceptionally decreased step length (B).) Car Transfer (QC): 3 (mod (A) to lift (L) LE into car) Gait Training Does the Patient Walk?: Yes Walk 10 feet (QC): 3 (mod (A) with FWW, exceptionally small step length (B), increased time to complete. Pain limited distance this date.) Walk 50 ft with 2 Turns(QC): 88 Walk 150 ft (QC): 88 Walking 10ft/uneven surface-QC: 88 Gait Assistive Device: FWW Wheelchair Training Does the Pt Use a Wheelchair?: Yes Wheel 50 ft with 2 turns (QC): 5 Wheel 150 ft (QC): 5 Type of Wheelchair: Manual Stair Training #of Steps: 0 1 Step (curb) (QC): 88 (patient's difficulty advancing (B) LE's did not allow for safe curb step ambulation) 4 Steps (QC): 88 12 Steps (QC): 88 Balance Picking up an Object (QC): 88 ADL-Treatment Eating (QC): 6 Oral Hygiene (QC): 5 Shower/Bathe Self (QC): 3 (assist buttocks and LLE lower legs/feet) Upper Body Dressing (QC): 5 Lower Body Dressing (QC): 3 (Mod A. Pt able to doff with CGA, assist with threading BLEs, then pt able to perform pant hike) On/Off Footwear (QC): 2 (Max A seated on shower chair to don/doff. Pt able to don seated EOB with SBA.) Toileting Hygiene (QC): 3 (assist with buttocks, pt able to manage pants) Assessment/Plan Assessment and Plan Assess & Plan/Chief Complaint Assessment: s/p left total knee replacement Chronic right knee pain Gout HTN Obesity Chronic constipation Plan: BM regimen Pain meds Aggressive PT OT CPM 07/27/2022: Monitor closely Ice machine (1) S/P total knee arthroplasty PHIL ORTIZ DO Jul 27, 2022 05:46
[2022-07-27 05:52] LABS: BASOPHILS # (AUTO) 0.1 10^3/uL (0.0-0.1); BASOPHILS % (AUTO) 0 % (0-10); EOSINOPHILS # (AUTO) 0.1 10^3/uL (0.0-0.3); EOSINOPHILS % (AUTO) 1 % (0-10); HEMATOCRIT 37 % (40-54); HEMOGLOBIN 12.6 g/dL (13.3-17.7); LYMPHOCYTES # (AUTO) 1.6 10^3/uL (1.0-4.0); LYMPHOCYTES % (AUTO) 11 % (12-44); MEAN CORPUSCULAR HEMOGLOBIN 32 pg (25-34); MEAN CORPUSCULAR HGB CONC 34 g/dL (32-36); MEAN CORPUSCULAR VOLUME 94 fL (80-99); MEAN PLATELET VOLUME 9.8 fL (9.0-12.2); MONOCYTES % (AUTO) 13 % (0-12); NEUTROPHILS % (AUTO) 74 % (42-75); PLATELET COUNT 256 10^3/uL (130-400); WHITE BLOOD COUNT 14.9 10^3/uL (4.3-11.0)
[2022-07-27 06:04] LABS: ALBUMIN 3.3 GM/DL (3.2-4.5)
[2022-07-27 06:05] LABS: POTASSIUM 3.4 MMOL/L (3.6-5.0)
[2022-07-27 06:06] LABS: CALCIUM 8.4 MG/DL (8.5-10.1)
[2022-07-27 06:07] LABS: TOTAL PROTEIN 5.6 GM/DL (6.4-8.2)
[2022-07-27 06:09] LABS: BILIRUBIN,TOTAL 2.3 MG/DL (0.1-1.0)
[2022-07-27 06:11] LABS: CREATININE SERUM 0.76 MG/DL (0.60-1.30)
[2022-07-27 06:25] LABS: EOSINOPHILS % (MANUAL) 2 %; LYMPHOCYTES % (MANUAL) 13 %; MONOCYTES % (MANUAL) 8 %; NEUTROPHILS % (MANUAL) 77 %; RBC MORPH NORMAL
[2022-07-27 07:30] VITALS: BP 126/73
[2022-07-27] MEDS: polyethylene glycoL POWDER 17 GM (MIRALAX) PACK PO SCH (08:20)
[2022-07-27] MEDS: ACETAMINOPHEN 325 MG TABLET PO SCH ×2 (08:20→22:00)
[2022-07-27] MEDS: MULTIVIT W/MINERALS TAB (THERAGRAN M) PO SCH (08:20)
[2022-07-27] MEDS: APIXABAN 5 MG (ELIQUIS) TABLET PO SCH ×2 (08:20→21:59)
[2022-07-27] MEDS: LACTOBACILLUS ACIDOPHILUS (PROBIOTIC) CAPSULE PO SCH (08:20)
[2022-07-27] MEDS ORDERED: NON-FORMULARY MEDICATION 1 EA EA (Ubidecarenone (Co Q-10) 100 MG) PO SCH (09:00)
[2022-07-27] MEDS ORDERED: NON-FORMULARY MEDICATION 1 EA EA (Chlorthalidone 25 MG) PO SCH (09:00)
[2022-07-27] MEDS: DOCUSATE SODIUM 100 MG (COLACE) CAP PO SCH ×2 (09:49→21:30)
[2022-07-27] MEDS: SENNA W/DOCUSATE (SENOKOT S) TABLET PO SCH ×2 (09:49→22:35)
[2022-07-27] MEDS ORDERED: PATIENT MAY USE OWN MED,SINGLE MED PO SCH (13:00)
[2022-07-27] MEDS: CHLORTHALIDONE 25 MG TAB PO SCH (13:31)
--- NOTE | 2022-07-27 14:20 | Physical Therapy Daily Note ---
PT Daily Note-Current Subjective Pt in recliner upon arrival and agrees to PT. Says his knee is more swollen today because his ice pack quit working last night. Pain Section J - Health Conditions 1. Rarely or not at all 2. Occasionally 3. Frequently 4. Almost constantly 8. Unable to answer Pain Effect on Sleep: 2 Pain Interference with Therapy: 4 Pain Interference w/Day-to-Day: 4 Mental Status Patient Orientation: Person, Place, Time, Situation Transfers SCALE: Activities may be completed with or without assistive devices. 5-Agbrqlvcrw-sitqmgp completes the activity by him/herself with no assistance from a helper. 5-Set-up or Clean-up Assistance-helper sets up or cleans up; patient completes activity. [place] assists only prior to or following the activity. 4-Supervision or Touching Assistance-helper provides verbal cues and/or touching/steadying and/or contact guard assistance as patient completes activity. Assistance may be provided throughout the activity or intermittently. 3-Partial/Moderate Assistance-helper does LESS THAN HALF the effort. [place] lifts, holds or supports trunk or limbs, but provides less than half the effort. 2-Substantial/Maximal Assistance-helper does MORE THAN HALF the effort. [place] lifts or holds trunk or limbs and provides more than half the effort. 8-Pqiziicsv-ejgyha does ALL the effort. Patient does none of the effort to complete the activity. Or, the assistance of 2 or more helpers is required for the patient to complete the activity. If activity was not attempted, code reason: 7-Patient Refused. 9-Not Applicable-not attempted and the patient did not perform the activity before the current illness, exacerbation or injury. 10-Not Attempted due to Environmental Limitations-(lack of equipment, weather restraints, etc.). 88-Not Attempted due to Medical Conditions or Safety Concerns. Sit to Lying (QC): 4 Sit to Stand (QC): 4 Weight Bearing Right Lower Extremity: Right Weight Bearing/Tolerated Left Lower Extremity: Left Weight Bearing/Tolerated Gait Training Does the Patient Walk?: Yes Distance: 6 x25' Walk 10 feet (QC): 4 Gait Persons Needed: 1 Gait Assistive Device: FWW slow antalgic step to gait Exercises Supine Ex: Quad Set, Heel Slides Supine Reps: 10 Treatments Pt amb out into gomez and amb back to room. TFs back to bed w/ all needs met and call light nearby. Assessment Current Status: Good Progress Pt required verbal and tactile cues in order to amb w/ step to and step through gait. Pt required frequent rest breaks d/t pain. Instructed pt on TKR exs and is sued exs to pt. PT Skilled Nursing Goals Genetics Physician Goals PT Skilled Nursing Goals Time Frame: Aug 09, 2022 Roll Left & Right (QC): 6 Sit to Lying (QC): 6 Lying-Sitting on Side/Bed(QC): 6 Sit to Stand (QC): 6 ( to FWW) Chair/Osn-ex-Ebfww Xfer(QC): 6 (with FWW) Toilet Transfer (QC): 6 (with FWW) Car Transfer (QC): 6 ( with FWW) Does the Patient Walk: Yes Walk 10 feet (QC): 6 ( with FWW with improved step length (B).) Walk 50ft with 2 Turns (QC): 6 (with FWW with improved step length (B)) Walk 150 ft (QC): 5 (with FWW (increased distances may be limited by (R)/nonsurgical knee pain)) Walking 10ft on Uneven Surface: 6 (with FWW) 1 Step (curb) (QC): 5 (with FWW) 4 Steps (QC): 4 (with (B) rails (may be limited by (R)/nonsurgical knee pain)) 12 Steps (QC): 9 Picking up an Object (QC): 5 Does the Pt use WC or Scooter?: Yes Wheel 50 feet with 2 turns (QC: 6 Type: Manual Wheel 150 feet: 6 Type: Manual PT Plan Problem List Problem List: Activity Tolerance, Functional Strength, Gait Treatment/Plan Treatment Plan: Continue Plan of Care Treatment Plan: Bed Mobility, Education, Functional Activity [place], Functional Strength, Group Therapy, Gait, Safety, Therapeutic Exercise, Transfers, Other Treatment Duration: Aug 09, 2022 Frequency: At least 5 of 7 days/Wk (IRF) Estimated Hrs Per Day: 1.5 hours per day Patient and/or Family Agrees t: Yes Safety Risks/Education Patient Education: Gait Training, Steps, Correct Positioning Teaching Recipient: Patient Teaching Methods: Discussion Response to Teaching: Return Demonstration Time Time In: 1105 Time Out: 1130 DATE: Jul 27, 2022 Total Billed Treatment Time: 25 Total Billed Treatment 1, GT x2 AARON BROWN WINDOWS AND DOORS INSTALLER Jul 27, 2022 14:20
[2022-07-27] MEDS: PSYLLIUM PO SCH (16:46)
[2022-07-27 19:48] VITALS: BP 113/66
[2022-07-27] MEDS: ALLOPURINOL 300 MG (ZYLOPRIM) TAB PO SCH (21:59)
[2022-07-27] MEDS: PANTOPRAZOLE 40 MG (PROTONIX) TAB PO SCH (21:59)
--- NOTE | 2022-07-28 05:48 | PM&R Progress Note ---
Subjective HPI/CC On Admission Date Seen by Provider: Jul 28, 2022 Time Seen by Provider: 08:30 Subjective/Events-last exam 07/28/2022: Had episode of drainage from the knee this morning but now can move his knee better No fever No falls BP stable 07/27/2022: Much improved overall Pain controlled BM+ Laxatives ordered Labs reviewed No issues except ice machine leaked last night Review of Systems General: Fatigue, Malaise Objective Exam Vital Signs Vital Signs Date Time Temp Pulse Resp B/P (MAP) Pulse Ox O2 Delivery O2 Flow Rate FiO2 07/28/22 07:30 36.8 82 18 121/77 (92) 96 Room Air Capillary Refill : General Appearance: No Apparent Distress, WD/WN, Chronically ill, Obese HEENT: PERRL/EOMI, Normal ENT Inspection, Pharynx Normal Neck: Full Range of Motion, Normal Inspection, Non Tender, Supple, Carotid Bruit Respiratory: Chest Non Tender, Lungs Clear, Normal Breath Sounds, No Accessory Muscle Use, No Respiratory Distress Cardiovascular: Regular Rate, Rhythm, No Edema, No Gallop, No JVD, No Murmur, Normal Peripheral Pulses Gastrointestinal: Normal Bowel Sounds, No Organomegaly, No Pulsatile Mass, Non Tender, Soft Back: Normal Inspection, No CVA Tenderness, No Vertebral Tenderness Extremity: Normal Capillary Refill, Normal Inspection, Normal Range of Motion (except left leg and right leg is also limited), Non Tender, No Calf Tenderness, No Pedal Edema Neurologic/Psychiatric: Alert, Oriented x3, No Motor/Sensory Deficits, Normal Mood/Affect Skin: Normal Color, Warm/Dry Lymphatic: No Adenopathy Results/Procedures Lab Patient resulted labs reviewed. FIM Transfers Therapy Code Descriptions/Definitions Functional [place] Measure: 0=Not Assessed/NA 4=Minimal Assistance 1=Total Assistance 5=Supervision or Setup 2=Maximal Assistance 6=Modified [place] 3=Moderate Assistance 7=Complete IndependenceSCALE: Activities may be completed with or without assistive devices. 2-Beqtnfvnmo-jbklqey completes the activity by him/herself with no assistance from a helper. 5-Set-up or Clean-up Assistance-helper sets up or cleans up; patient completes activity. [place] assists only prior to or following the activity. 4-Supervision or Touching Assistance-helper provides verbal cues and/or touching/steadying and/or contact guard assistance as patient completes activity. Assistance may be provided throughout the activity or intermittently. 3-Partial/Moderate Assistance-helper does LESS THAN HALF the effort. [place] lifts, holds or supports trunk or limbs, but provides less than half the effort. 2-Substantial/Maximal Assistance-helper does MORE THAN HALF the effort. [place] lifts or holds trunk or limbs and provides more than half the effort. 0-Cpzmkbvad-qukbvx does ALL the effort. Patient does none of the effort to complete the activity. Or, the assistance of 2 or more helpers is required for the patient to complete the activity. If activity was not attempted, code reason: 7-Patient Refused. 9-Not Applicable-not attempted and the patient did not perform the activity before the current illness, exacerbation or injury. 10-Not Attempted due to Environmental Limitations-(lack of equipment, weather restraints, etc.). 88-Not Attempted due to Medical Conditions or Safety Concerns. Roll Left to Right (QC): 5 (with bed rail) Sit to Lying (QC): 4 Sit to Stand (QC): 4 Chair/Bfk-ev-Pnmzh Xfer(QC): 3 (min (A) once upright with FWW to step/stand pivot, exceptionally decreased step length (B).) Car Transfer (QC): 3 (mod (A) to lift (L) LE into car) Gait Training Does the Patient Walk?: Yes Distance: 6 x25' Walk 10 feet (QC): 4 Walk 50 ft with 2 Turns(QC): 88 Walk 150 ft (QC): 88 Walking 10ft/uneven surface-QC: 88 Gait Persons Needed: 1 Gait Assistive Device: FWW Wheelchair Training Does the Pt Use a Wheelchair?: Yes Wheel 50 ft with 2 turns (QC): 5 Wheel 150 ft (QC): 5 Type of Wheelchair: Manual Stair Training #of Steps: 0 1 Step (curb) (QC): 88 (patient's difficulty advancing (B) LE's did not allow for safe curb step ambulation) 4 Steps (QC): 88 12 Steps (QC): 88 Balance Picking up an Object (QC): 88 ADL-Treatment Eating (QC): 6 Oral Hygiene (QC): 5 Shower/Bathe Self (QC): 3 (assist buttocks and LLE lower legs/feet) Upper Body Dressing (QC): 5 Lower Body Dressing (QC): 3 (Mod A. Pt able to doff with CGA, assist with threading BLEs, then pt able to perform pant hike) On/Off Footwear (QC): 2 (Max A seated on shower chair to don/doff. Pt able to don seated EOB with SBA.) Toileting Hygiene (QC): 3 (assist with buttocks, pt able to manage pants) Assessment/Plan Assessment and Plan Assess & Plan/Chief Complaint Assessment: s/p left total knee replacement Chronic right knee pain Gout HTN Obesity Chronic constipation Plan: BM regimen Pain meds Aggressive PT OT CPM 07/27/2022: Monitor closely Ice machine 07/28/2022: Monitor drainage Will reach out to Dr Moses tomorrow (1) S/P total knee arthroplasty PHIL ORTIZ DO Jul 28, 2022 05:48
[2022-07-28 07:30] VITALS: BP 121/77
[2022-07-28] MEDS: SENNA W/DOCUSATE (SENOKOT S) TABLET PO SCH ×2 (09:12→20:52)
[2022-07-28] MEDS: LACTOBACILLUS ACIDOPHILUS (PROBIOTIC) CAPSULE PO SCH (09:13)
[2022-07-28] MEDS: ACETAMINOPHEN 325 MG TABLET PO SCH ×2 (09:13→20:50)
[2022-07-28] MEDS: APIXABAN 5 MG (ELIQUIS) TABLET PO SCH ×2 (09:13→20:51)
[2022-07-28] MEDS: MULTIVIT W/MINERALS TAB (THERAGRAN M) PO SCH (09:13)
[2022-07-28] MEDS: CHLORTHALIDONE 25 MG TAB PO SCH (09:17)
[2022-07-28] MEDS: polyethylene glycoL POWDER 17 GM (MIRALAX) PACK PO SCH ×2 (09:17→14:05)
[2022-07-28] MEDS: DOCUSATE SODIUM 100 MG (COLACE) CAP PO SCH ×2 (09:17→20:51)
[2022-07-28] MEDS: PSYLLIUM PO SCH (18:22)
[2022-07-28 20:26] VITALS: BP 139/61
[2022-07-28] MEDS: ALLOPURINOL 300 MG (ZYLOPRIM) TAB PO SCH (20:50)
[2022-07-28] MEDS: PANTOPRAZOLE 40 MG (PROTONIX) TAB PO SCH (20:50)
--- NOTE | 2022-07-29 05:31 | PM&R Progress Note ---
Subjective HPI/CC On Admission Date Seen by Provider: Jul 29, 2022 Time Seen by Provider: 10:00 Subjective/Events-last exam 07/29/2022: Doing well Dr Moses updated and he recommended stopping Eliquis for short time so we will hold Monitoring closely 07/28/2022: Had episode of drainage from the knee this morning but now can move his knee better No fever No falls BP stable 07/27/2022: Much improved overall Pain controlled BM+ Laxatives ordered Labs reviewed No issues except ice machine leaked last night Review of Systems General: Fatigue, Malaise Objective Exam Vital Signs Vital Signs Date Time Temp Pulse Resp B/P (MAP) Pulse Ox O2 Delivery O2 Flow Rate FiO2 07/29/22 20:27 36.7 84 20 142/77 (98) 97 Room Air Capillary Refill : General Appearance: No Apparent Distress, WD/WN, Chronically ill, Obese HEENT: PERRL/EOMI, Normal ENT Inspection, Pharynx Normal Neck: Full Range of Motion, Normal Inspection, Non Tender, Supple, Carotid Bruit Respiratory: Chest Non Tender, Lungs Clear, Normal Breath Sounds, No Accessory Muscle Use, No Respiratory Distress Cardiovascular: Regular Rate, Rhythm, No Edema, No Gallop, No JVD, No Murmur, Normal Peripheral Pulses Gastrointestinal: Normal Bowel Sounds, No Organomegaly, No Pulsatile Mass, Non Tender, Soft Back: Normal Inspection, No CVA Tenderness, No Vertebral Tenderness Extremity: Normal Capillary Refill, Normal Inspection, Normal Range of Motion (except left leg and right leg is also limited), Non Tender, No Calf Tenderness, No Pedal Edema Neurologic/Psychiatric: Alert, Oriented x3, No Motor/Sensory Deficits, Normal Mood/Affect Skin: Normal Color, Warm/Dry Lymphatic: No Adenopathy Results/Procedures Lab Patient resulted labs reviewed. FIM Transfers Therapy Code Descriptions/Definitions Functional [place] Measure: 0=Not Assessed/NA 4=Minimal Assistance 1=Total Assistance 5=Supervision or Setup 2=Maximal Assistance 6=Modified [place] 3=Moderate Assistance 7=Complete IndependenceSCALE: Activities may be completed with or without assistive devices. 6-Sdcthkuymb-mdenpkn completes the activity by him/herself with no assistance from a helper. 5-Set-up or Clean-up Assistance-helper sets up or cleans up; patient completes activity. [place] assists only prior to or following the activity. 4-Supervision or Touching Assistance-helper provides verbal cues and/or touching/steadying and/or contact guard assistance as patient completes activity. Assistance may be provided throughout the activity or intermittently. 3-Partial/Moderate Assistance-helper does LESS THAN HALF the effort. [place] lifts, holds or supports trunk or limbs, but provides less than half the effort. 2-Substantial/Maximal Assistance-helper does MORE THAN HALF the effort. [place] lifts or holds trunk or limbs and provides more than half the effort. 6-Sytjwovtj-yafmtb does ALL the effort. Patient does none of the effort to complete the activity. Or, the assistance of 2 or more helpers is required for the patient to complete the activity. If activity was not attempted, code reason: 7-Patient Refused. 9-Not Applicable-not attempted and the patient did not perform the activity before the current illness, exacerbation or injury. 10-Not Attempted due to Environmental Limitations-(lack of equipment, weather restraints, etc.). 88-Not Attempted due to Medical Conditions or Safety Concerns. Roll Left to Right (QC): 5 (with bed rail) Sit to Lying (QC): 4 Sit to Stand (QC): 4 Chair/Kmv-ky-Dfikh Xfer(QC): 3 (min (A) once upright with FWW to step/stand pivot, exceptionally decreased step length (B).) Car Transfer (QC): 3 (mod (A) to lift (L) LE into car) Gait Training Does the Patient Walk?: Yes Distance: 6 x25' Walk 10 feet (QC): 4 Walk 50 ft with 2 Turns(QC): 88 Walk 150 ft (QC): 88 Walking 10ft/uneven surface-QC: 88 Gait Persons Needed: 1 Gait Assistive Device: FWW Wheelchair Training Does the Pt Use a Wheelchair?: Yes Wheel 50 ft with 2 turns (QC): 5 Wheel 150 ft (QC): 5 Type of Wheelchair: Manual Stair Training #of Steps: 0 1 Step (curb) (QC): 88 (patient's difficulty advancing (B) LE's did not allow for safe curb step ambulation) 4 Steps (QC): 88 12 Steps (QC): 88 Balance Picking up an Object (QC): 88 ADL-Treatment Eating (QC): 6 Oral Hygiene (QC): 5 Shower/Bathe Self (QC): 3 (assist buttocks and LLE lower legs/feet) Upper Body Dressing (QC): 5 Lower Body Dressing (QC): 3 (Mod A. Pt able to doff with CGA, assist with threading BLEs, then pt able to perform pant hike) On/Off Footwear (QC): 2 (Max A seated on shower chair to don/doff. Pt able to don seated EOB with SBA.) Toileting Hygiene (QC): 3 (assist with buttocks, pt able to manage pants) Assessment/Plan Assessment and Plan Assess & Plan/Chief Complaint Assessment: s/p left total knee replacement Chronic right knee pain Gout HTN Obesity Chronic constipation Bloody drainage for incision-holding Eligersonis 07/29/22 Plan: BM regimen Pain meds Aggressive PT OT CPM 07/27/2022: Monitor closely Ice machine 07/28/2022: Monitor drainage Will reach out to Dr Moses tomorrow 07/29/2022: Hold Eliquis (1) S/P total knee arthroplasty PHIL ORTIZ DO Jul 29, 2022 05:31
[2022-07-29 05:47] LABS: BASOPHILS % (AUTO) 0 % (0-10); EOSINOPHILS # (AUTO) 0.4 10^3/uL (0.0-0.3); EOSINOPHILS % (AUTO) 3 % (0-10); HEMATOCRIT 36 % (40-54); HEMOGLOBIN 12.7 g/dL (13.3-17.7); LYMPHOCYTES # (AUTO) 1.5 10^3/uL (1.0-4.0); LYMPHOCYTES % (AUTO) 13 % (12-44); MEAN CORPUSCULAR HEMOGLOBIN 32 pg (25-34); MEAN CORPUSCULAR HGB CONC 35 g/dL (32-36); MEAN CORPUSCULAR VOLUME 92 fL (80-99); MEAN PLATELET VOLUME 10.2 fL (9.0-12.2); MONOCYTES # (AUTO) 1.5 10^3/uL (0.0-1.0); MONOCYTES % (AUTO) 13 % (0-12); NEUTROPHILS # (AUTO) 8.5 10^3/uL (1.8-7.8); NEUTROPHILS % (AUTO) 70 % (42-75); PLATELET COUNT 318 10^3/uL (130-400)
[2022-07-29 06:02] LABS: ALBUMIN 3.1 GM/DL (3.2-4.5); POTASSIUM 2.9 MMOL/L (3.6-5.0)
[2022-07-29 06:03] LABS: CALCIUM 8.4 MG/DL (8.5-10.1)
[2022-07-29 06:04] LABS: TOTAL PROTEIN 5.6 GM/DL (6.4-8.2)
[2022-07-29 06:06] LABS: BILIRUBIN,TOTAL 1.7 MG/DL (0.1-1.0)
[2022-07-29 06:08] LABS: CREATININE SERUM 0.79 MG/DL (0.60-1.30)
[2022-07-29 08:00] VITALS: BP 148/74
[2022-07-29] MEDS: MULTIVIT W/MINERALS TAB (THERAGRAN M) PO SCH (08:36)
[2022-07-29] MEDS: APIXABAN 5 MG (ELIQUIS) TABLET PO SCH (08:36)
[2022-07-29] MEDS: LACTOBACILLUS ACIDOPHILUS (PROBIOTIC) CAPSULE PO SCH (08:36)
[2022-07-29] MEDS: KCL 10 MEQ TAB (MICRO K) PO SCH ×2 (08:36→17:40)
[2022-07-29] MEDS: ACETAMINOPHEN 325 MG TABLET PO SCH ×2 (08:37→20:23)
[2022-07-29] MEDS: DOCUSATE SODIUM 100 MG (COLACE) CAP PO SCH ×2 (08:37→19:53)
[2022-07-29] MEDS: polyethylene glycoL POWDER 17 GM (MIRALAX) PACK PO SCH (08:37)
[2022-07-29] MEDS: SENNA W/DOCUSATE (SENOKOT S) TABLET PO SCH ×2 (08:37→20:22)
--- NOTE | 2022-07-29 08:38 | Physician Query Clarification ---
PQ-Intro New Diagnosis Admission/Discharge Admission Date: Jul 26, 2022 at 12:04 Discharge Date: Dr. Gordon, The medical record reflects the following clinical scenario: History/Risk Factors: s/p Lt TKR Clinical Findings: s/p Lt TKR, chronic Rt knee pain, arthritis Treatment: IP Rehab Question: What condition best reflects the above clinical scenario? What is the condition that necessitated the Lt TKR? Please document a response in the Progress Noter or Discharge Summary. 1. Lt knee osteoarthritis s/p Lt TKR with current chronic Rt knee osteoarthritis 2. Lt knee pain s/p Lt TKR with chronic Rt knee pain 3. Other, with explanation of the clinical findings. 4. Clinically undetermined, no explanation for the clinical findings. PHYSICIAN RESPONSE What condition reflects above: 1 In responding to this query, please exercise your independent professional judgment. The purpose of this communication is to more accurately reflect the complexity of your patients condition. The fact that a question is asked does not imply that any particular answer is desired or expected. Thank you for your timely response to this clarification. Requestors name: Elva THIS PHYSICIAN QUERY FORM IS A PERMANENT PART OF THE MEDICAL RECORD ELVA BELL Jul 29, 2022 08:38 PHIL GORDON DO Jul 29, 2022 09:02
[2022-07-29] MEDS: CHLORTHALIDONE 25 MG TAB PO SCH (08:41)
--- NOTE | 2022-07-29 10:31 | Occupational Ther Daily Note ---
OT Current Status-Daily Note Subjective Pt in bed, agreeable to OT Tx. Mental Status/Objective Patient Orientation: Normal For Age ADL-Treatment Therapy Code Descriptions/Definitions Functional [place] Measure: 0=Not Assessed/NA 4=Minimal Assistance 1=Total Assistance 5=Supervision or Setup 2=Maximal Assistance 6=Modified [place] 3=Moderate Assistance 7=Complete IndependenceSCALE: Activities may be completed with or without assistive devices. 7-Qmhujgawxb-clvluls completes the activity by him/herself with no assistance from a helper. 5-Set-up or Clean-up Assistance-helper sets up or cleans up; patient completes activity. [place] assists only prior to or following the activity. 4-Supervision or Touching Assistance-helper provides verbal cues and/or touching/steadying and/or contact guard assistance as patient completes activity. Assistance may be provided throughout the activity or intermittently. 3-Partial/Moderate Assistance-helper does LESS THAN HALF the effort. [place] lifts, holds or supports trunk or limbs, but provides less than half the effort. 2-Substantial/Maximal Assistance-helper does MORE THAN HALF the effort. [place] lifts or holds trunk or limbs and provides more than half the effort. 3-Habpzzhip-viwpyz does ALL the effort. Patient does none of the effort to complete the activity. Or, the assistance of 2 or more helpers is required for the patient to complete the activity. If activity was not attempted, code reason: 7-Patient Refused. 9-Not Applicable-not attempted and the patient did not perform the activity before the current illness, exacerbation or injury. 10-Not Attempted due to Environmental Limitations-(lack of equipment, weather restraints, etc.). 88-Not Attempted due to Medical Conditions or Safety Concerns. Eating (QC): 6 Oral Hygiene (QC): 6 Shower/Bathe Self (QC): 5 Upper Body Dressing (QC): 5 Lower Body Dressing (QC): 3 (min A. Education on AE) On/Off Footwear: 2 (Max A overall. Education on AE) Toileting Hygiene (QC): 4 (CGA in stand.) Toilet Transfer (QC): 3 (min A sit to stand from toilet.) Other Treatment Pt in bed, transferred supine to sit EOB, SBA. Pt stood from EOB, min A and used FWW to transfer into bathroom and onto toilet, CGA. Pt completed toileting, then transferred to IN. Pt doffed clothes, completed shower, then donned clothes. Education provided on AE for LE dressing. Post tx, pt in w/c, polar pack placed on LLE, all needs met, call light in reach and spouse present. Education OT Patient Education: Correct positioning, Energy conservation, Modified ADL techniques, Progress toward Goal/Update tx plan, Purpose of tx/functional activities, Rehab process Teaching Recipient: Patient Teaching Methods: Discussion Response to Teaching: Verbalize Understanding OT Short Term Goals Short Term Goals Time Frame: Aug 02, 2022 Shower/bathe self: 4 Lower body dressin Putting on/taking off footwear: 4 OT Learning And Development Officer Goals Snf Goals Time Frame: Aug 23, 2022 Acute change in mental status: 0 Inattention: 0 Disorganized thinkin Altered level of consciousness: 0 Eating (QC): 6 Oral Hygiene (QC): 6 Toileting Hygiene (QC): 6 Shower/Bathe Self (QC): 6 Upper Body Dressing (QC): 6 Lower Body Dressing (QC): 6 On/Off Footwear (QC): 6 Additional Goals: 1-Demonstrate ADL Tasks, 2-Verbalize Understanding, 3-ImproveStrength/[place] 1=Demonstrate adherence to instructed precautions during ADL tasks. 2=Patient will verbalize/demonstrate understanding of assistive devices/modifications for ADL. 3=Patient will improve strength/tolerance for activity to enable patient to per form ADL's. OT Education/Plan Problem List/Assessment Assessment: Decreased Activ Tolerance, Decreased UE Strength, Impaired Funct Balance, Impaired I ADL's, Impaired Self-Care Skills Discharge Recommendations Plan/Recommendations: Continue POC Treatment Plan/Plan of Care Patient would benefit from OT for education, treatment and training to promote independence in ADL's, mobility, safety and/or upper extremity function for ADL's. Plan of Care: ADL Retraining, Functional Mobility, Group Exercise/Act as Ind, UE Funct Exercise/Act Treatment Duration: Aug 23, 2022 Frequency: At least 5 of 7 days/Wk (IRF) Estimated Hrs Per Day: 1.5 hours per day Agreement: Yes Rehab Potential: Good Time Start Time: 09:45 Stop Time: 10:45 DATE: Jul 29, 2022 Total Time Billed (hr/min): 60 Billed Treatment Time 1, ADL 4 ODILIA NUNN OT Jul 29, 2022 10:31
--- NOTE | 2022-07-29 12:16 | Physical Therapy Daily Note ---
PT Daily Note-Current Subjective Pt working to transition from cane to FWW this day with edu on the importance of use. Pt is able to go from a step to gait pattern to a step though gait pattern. Pain Location: Right, Left Location Body Site: Arm Pain Description: Ache Comment: Reported but not rated Section J - Health Conditions 1. Rarely or not at all 2. Occasionally 3. Frequently 4. Almost constantly 8. Unable to answer Pain Effect on Sleep: 2 Pain Interference with Therapy: 4 Pain Interference w/Day-to-Day: 4 Mental Status Patient Orientation: Person, Place, Time, Situation Attachments: Polar Pack Transfers SCALE: Activities may be completed with or without assistive devices. 3-Aitrrosmbb-tojggoj completes the activity by him/herself with no assistance from a helper. 5-Set-up or Clean-up Assistance-helper sets up or cleans up; patient completes activity. [place] assists only prior to or following the activity. 4-Supervision or Touching Assistance-helper provides verbal cues and/or touching/steadying and/or contact guard assistance as patient completes activity. Assistance may be provided throughout the activity or intermittently. 3-Partial/Moderate Assistance-helper does LESS THAN HALF the effort. [place] lifts, holds or supports trunk or limbs, but provides less than half the effort. 2-Substantial/Maximal Assistance-helper does MORE THAN HALF the effort. [place] lifts or holds trunk or limbs and provides more than half the effort. 2-Tviiuhewn-euohsm does ALL the effort. Patient does none of the effort to complete the activity. Or, the assistance of 2 or more helpers is required for the patient to complete the activity. If activity was not attempted, code reason: 7-Patient Refused. 9-Not Applicable-not attempted and the patient did not perform the activity before the current illness, exacerbation or injury. 10-Not Attempted due to Environmental Limitations-(lack of equipment, weather restraints, etc.). 88-Not Attempted due to Medical Conditions or Safety Concerns. Sit to Stand (QC): 5 Weight Bearing Right Lower Extremity: Right Weight Bearing/Tolerated Left Lower Extremity: Left Weight Bearing/Tolerated Gait Training Does the Patient Walk?: Yes Distance: 350' Walk 10 feet (QC): 4 Walk 50 ft with 2 Turns(QC): 4 Walk 150 ft (QC): 4 Gait Persons Needed: 1 Gait Assistive Device: FWW Pt was able to ambulate aprox 100' with Rw and CGA for safety then did require a 60 sec rest break and is able to resume ambulation. Pt gait became more fluid with the tiago ambulation from step to to step though. Treatments Pt focused on amb. w/[facility] following. Pt took RB as needed then returned to room to rest at end of tx. All needs met, call light in hand & lunch arriving. Assessment Current Status: Good Progress Pt's gait improves as pt increases distance. Gait becomes more fluid, less stiff & L knee less flexed. PT Wet End Operator Goals Shelter Goals PT Shelter Goals Time Frame: Aug 09, 2022 Roll Left & Right (QC): 6 Sit to Lying (QC): 6 Lying-Sitting on Side/Bed(QC): 6 Sit to Stand (QC): 6 ( to FWW) Chair/Rao-tu-Kopcb Xfer(QC): 6 (with FWW) Toilet Transfer (QC): 6 (with FWW) Car Transfer (QC): 6 ( with FWW) Does the Patient Walk: Yes Walk 10 feet (QC): 6 ( with FWW with improved step length (B).) Walk 50ft with 2 Turns (QC): 6 (with FWW with improved step length (B)) Walk 150 ft (QC): 5 (with FWW (increased distances may be limited by (R)/nonsurgical knee pain)) Walking 10ft on Uneven Surface: 6 (with FWW) 1 Step (curb) (QC): 5 (with FWW) 4 Steps (QC): 4 (with (B) rails (may be limited by (R)/nonsurgical knee pain)) 12 Steps (QC): 9 Picking up an Object (QC): 5 Does the Pt use WC or Scooter?: Yes Wheel 50 feet with 2 turns (QC: 6 Type: Manual Wheel 150 feet: 6 Type: Manual PT Plan Problem List Problem List: Activity Tolerance, Functional Strength Treatment/Plan Treatment Plan: Continue Plan of Care Treatment Plan: Bed Mobility, Education, Functional Activity [place], Functional Strength, Group Therapy, Gait, Safety, Therapeutic Exercise, Transfers, Other Treatment Duration: Aug 09, 2022 Frequency: At least 5 of 7 days/Wk (IRF) Estimated Hrs Per Day: 1.5 hours per day Patient and/or Family Agrees t: Yes Safety Risks/Education Patient Education: Gait Training, Correct Positioning, Safety Issues Teaching Recipient: Patient Teaching Methods: Discussion Response to Teaching: Verbalize Understanding Time Time In: 1115 Time Out: 1200 DATE: Jul 29, 2022 Total Billed Treatment Time: 45 Total Billed Treatment 1, FA (15m) & GT x2 (30m) LING KNUTSON PTA Jul 29, 2022 12:16
--- NOTE | 2022-07-29 14:37 | Therapy Group Daily Note ---
Therapy Daily Group Note Patient Education Topic Exercises, Other List Below (benefits of exercise) Exercises LE Seated Exercise, UE Exercise Session Ratio (pt:therapist): 4:1 Goal of Session: UE/LE Strengthing, Other (list) (benefits of exercise) Goal Met for this Session: Yes Pt Benefit of Group: Contributions to Others, Increased Functional Strength, I mproved Cognition, Recognition of Peers, Socialization Other/Notes Pt ambulated using FWW to [facility] to participate in OT group. Group consisted of introductions (name, place, favorite activity), socialization, B UE/LE seated exercises and education on benefits of exercise. Pt introduced self appropriately and actively listened to peers. Pt acknowledged understanding of educational topics by giving own personal activities and routines. Pt modified exercises due to limitations of LE. After session, pt sitting in w/c with call light/phone in reach. All needs met in room. Start Time: 13:00 Stop Time: 14:15 Total Billed Treatment Time: 75 Total Billed Treatment 1-GRP BAMBI ROSE Jul 29, 2022 14:37
[2022-07-29] MEDS: PSYLLIUM PO SCH (17:40)
[2022-07-29] MEDS: ALLOPURINOL 300 MG (ZYLOPRIM) TAB PO SCH (20:22)
[2022-07-29] MEDS: PANTOPRAZOLE 40 MG (PROTONIX) TAB PO SCH (20:22)
[2022-07-29 20:27] VITALS: BP 142/77
--- NOTE | 2022-07-30 06:48 | PM&R Progress Note ---
Subjective HPI/CC On Admission Date Seen by Provider: Jul 30, 2022 Time Seen by Provider: 09:00 Subjective/Events-last exam 07/30/2022: Immobilizer is in place left leg for total 72 hours Less drainage Holding Eliquis for now 07/29/2022: Doing well Dr Moses updated and he recommended stopping Eliquis for short time so we will hold Monitoring closely 07/28/2022: Had episode of drainage from the knee this morning but now can move his knee better No fever No falls BP stable 07/27/2022: Much improved overall Pain controlled BM+ Laxatives ordered Labs reviewed No issues except ice machine leaked last night Review of Systems General: Fatigue, Malaise Objective Exam Vital Signs Vital Signs Date Time Temp Pulse Resp B/P (MAP) Pulse Ox O2 Delivery O2 Flow Rate FiO2 07/30/22 21:26 Room Air 07/30/22 20:00 36.8 82 16 123/69 (87) 96 Capillary Refill : General Appearance: No Apparent Distress, WD/WN, Chronically ill, Obese HEENT: PERRL/EOMI, Normal ENT Inspection, Pharynx Normal Neck: Full Range of Motion, Normal Inspection, Non Tender, Supple, Carotid Bruit Respiratory: Chest Non Tender, Lungs Clear, Normal Breath Sounds, No Accessory Muscle Use, No Respiratory Distress Cardiovascular: Regular Rate, Rhythm, No Edema, No Gallop, No JVD, No Murmur, Normal Peripheral Pulses Gastrointestinal: Normal Bowel Sounds, No Organomegaly, No Pulsatile Mass, Non Tender, Soft Back: Normal Inspection, No CVA Tenderness, No Vertebral Tenderness Extremity: Normal Capillary Refill, Normal Inspection, Normal Range of Motion (except left leg and right leg is also limited), Non Tender, No Calf Tenderness, No Pedal Edema Neurologic/Psychiatric: Alert, Oriented x3, No Motor/Sensory Deficits, Normal Mood/Affect Skin: Normal Color, Warm/Dry Lymphatic: No Adenopathy Results/Procedures Lab Patient resulted labs reviewed. FIM Transfers Therapy Code Descriptions/Definitions Functional [place] Measure: 0=Not Assessed/NA 4=Minimal Assistance 1=Total Assistance 5=Supervision or Setup 2=Maximal Assistance 6=Modified [place] 3=Moderate Assistance 7=Complete IndependenceSCALE: Activities may be completed with or without assistive devices. 5-Lxmydgofcm-pwrfkjc completes the activity by him/herself with no assistance from a helper. 5-Set-up or Clean-up Assistance-helper sets up or cleans up; patient completes activity. [place] assists only prior to or following the activity. 4-Supervision or Touching Assistance-helper provides verbal cues and/or touching/steadying and/or contact guard assistance as patient completes activity. Assistance may be provided throughout the activity or intermittently. 3-Partial/Moderate Assistance-helper does LESS THAN HALF the effort. [place] lifts, holds or supports trunk or limbs, but provides less than half the effort. 2-Substantial/Maximal Assistance-helper does MORE THAN HALF the effort. [place] lifts or holds trunk or limbs and provides more than half the effort. 2-Arwrbszne-gfxeyf does ALL the effort. Patient does none of the effort to complete the activity. Or, the assistance of 2 or more helpers is required for the patient to complete the activity. If activity was not attempted, code reason: 7-Patient Refused. 9-Not Applicable-not attempted and the patient did not perform the activity before the current illness, exacerbation or injury. 10-Not Attempted due to Environmental Limitations-(lack of equipment, weather restraints, etc.). 88-Not Attempted due to Medical Conditions or Safety Concerns. Roll Left to Right (QC): 5 (with bed rail) Sit to Lying (QC): 4 Sit to Stand (QC): 5 Chair/Ckl-ug-Iioox Xfer(QC): 3 (min (A) once upright with FWW to step/stand pivot, exceptionally decreased step length (B).) Car Transfer (QC): 3 (mod (A) to lift (L) LE into car) Gait Training Does the Patient Walk?: Yes Distance: 350' Walk 10 feet (QC): 4 Walk 50 ft with 2 Turns(QC): 4 Walk 150 ft (QC): 4 Walking 10ft/uneven surface-QC: 88 Gait Persons Needed: 1 Gait Assistive Device: FWW Wheelchair Training Does the Pt Use a Wheelchair?: Yes Wheel 50 ft with 2 turns (QC): 5 Wheel 150 ft (QC): 5 Type of Wheelchair: Manual Stair Training #of Steps: 0 1 Step (curb) (QC): 88 (patient's difficulty advancing (B) LE's did not allow for safe curb step ambulation) 4 Steps (QC): 88 12 Steps (QC): 88 Balance Picking up an Object (QC): 88 ADL-Treatment Eating (QC): 6 Oral Hygiene (QC): 6 Shower/Bathe Self (QC): 5 Upper Body Dressing (QC): 5 Lower Body Dressing (QC): 3 (min A. Education on AE) On/Off Footwear (QC): 2 (Max A overall. Education on AE) Toileting Hygiene (QC): 4 (CGA in stand.) Toilet Transfer (QC): 3 (min A sit to stand from toilet.) Assessment/Plan Assessment and Plan Assess & Plan/Chief Complaint Assessment: s/p left total knee replacement Chronic right knee pain Gout HTN Obesity Chronic constipation Bloody drainage for incision-holding Eliquis 07/29/22 Plan: BM regimen Pain meds Aggressive PT OT CPM 07/27/2022: Monitor closely Ice machine 07/28/2022: Monitor drainage Will reach out to Dr Moses tomorrow 07/29/2022: Hold Eliquis 07/30/2022: Maintain immobilizer (1) S/P total knee arthroplasty PHIL ORTIZ DO Jul 30, 2022 06:48
[2022-07-30 08:00] VITALS: BP 151/85
--- NOTE | 2022-07-30 08:53 | Physical Therapy Progress Note ---
Therapy Progress Note Per nursing staff on 07/29/21 at ~ 4:30 pm, Dr. Moses ordered that patient be in a (L) knee immobilizer for 72 hours with no knee flexion in therapy, due to drainage at the incision. Treatment staff notified of new order. This will most likely affect outcome for patient's (L) knee AROM goal. Jennie Sosa PT Jul 30, 2022 08:53
--- NOTE | 2022-07-30 08:58 | Physical Therapy Daily Note ---
PT Daily Note-Current Subjective pt wearing an immobilizer for the next 72 hrs per orders. pt agreeable to therapy this dy and was in WC upon arrival Pain Numeric Pain Scale: 3 Location: Right, Left Location Body Site: Knee Pain Description: Burning Comment: pt has buring in right knee after ambulating. Section J - Health Conditions 1. Rarely or not at all 2. Occasionally 3. Frequently 4. Almost constantly 8. Unable to answer Pain Effect on Sleep: 2 Pain Interference with Therapy: 4 Pain Interference w/Day-to-Day: 4 Mental Status Patient Orientation: Person, Place, Time, Situation Attachments: Knee Immobilizer Transfers SCALE: Activities may be completed with or without assistive devices. 3-Iahulypnjn-oxenffr completes the activity by him/herself with no assistance from a helper. 5-Set-up or Clean-up Assistance-helper sets up or cleans up; patient completes activity. [place] assists only prior to or following the activity. 4-Supervision or Touching Assistance-helper provides verbal cues and/or touching/steadying and/or contact guard assistance as patient completes activity. Assistance may be provided throughout the activity or intermittently. 3-Partial/Moderate Assistance-helper does LESS THAN HALF the effort. [place] lifts, holds or supports trunk or limbs, but provides less than half the effort. 2-Substantial/Maximal Assistance-helper does MORE THAN HALF the effort. [place] lifts or holds trunk or limbs and provides more than half the effort. 3-Qytnlzndh-vtpddf does ALL the effort. Patient does none of the effort to complete the activity. Or, the assistance of 2 or more helpers is required for the patient to complete the activity. If activity was not attempted, code reason: 7-Patient Refused. 9-Not Applicable-not attempted and the patient did not perform the activity before the current illness, exacerbation or injury. 10-Not Attempted due to Environmental Limitations-(lack of equipment, weather restraints, etc.). 88-Not Attempted due to Medical Conditions or Safety Concerns. Sit to Stand (QC): 5 Weight Bearing Right Lower Extremity: Right Weight Bearing/Tolerated Left Lower Extremity: Left Weight Bearing/Tolerated Gait Training Walk 150 ft (QC): 5 pt used RW with SBA this day with no LOB Exercises Seated Therapy Exercises: Ankle pumps, Long arc quads, Hip flexion, Kicking activity, Hip abd/add Treatments pt started in room ambulated 150ft with SBA and RW this day. pt is able to preform seated ther-ex with 30% VC for correct movement. pt is able to ambulate again with 50ft with SBA . pt left in room in WC with call light near and all needs met. Assessment pt making gains toward stated goals and will continue therapy with immobilizer for the next 72 hrs. PT Alf Goals Alf Goals PT Alf Goals Time Frame: Aug 09, 2022 Roll Left & Right (QC): 6 Sit to Lying (QC): 6 Lying-Sitting on Side/Bed(QC): 6 Sit to Stand (QC): 6 ( to FWW) Chair/Gpl-yi-Vnovs Xfer(QC): 6 (with FWW) Toilet Transfer (QC): 6 (with FWW) Car Transfer (QC): 6 ( with FWW) Does the Patient Walk: Yes Walk 10 feet (QC): 6 ( with FWW with improved step length (B).) Walk 50ft with 2 Turns (QC): 6 (with FWW with improved step length (B)) Walk 150 ft (QC): 5 (with FWW (increased distances may be limited by (R)/nonsurgical knee pain)) Walking 10ft on Uneven Surface: 6 (with FWW) 1 Step (curb) (QC): 5 (with FWW) 4 Steps (QC): 4 (with (B) rails (may be limited by (R)/nonsurgical knee pain)) 12 Steps (QC): 9 Picking up an Object (QC): 5 Does the Pt use WC or Scooter?: Yes Wheel 50 feet with 2 turns (QC: 6 Type: Manual Wheel 150 feet: 6 Type: Manual PT Plan Treatment/Plan Treatment Plan: Continue Plan of Care Treatment Plan: Bed Mobility, Education, Functional Activity [place], Functional Strength, Group Therapy, Gait, Safety, Therapeutic Exercise, Transfers, Other Treatment Duration: Aug 09, 2022 Frequency: At least 5 of 7 days/Wk (IRF) Estimated Hrs Per Day: 1.5 hours per day Patient and/or Family Agrees t: Yes Safety Risks/Education Patient Education: Gait Training, Transfer Techniques Teaching Recipient: Patient Teaching Methods: Demonstration Response to Teaching: Verbalize Understanding Time Time In: 800 Time Out: 900 DATE: Jul 30, 2022 Total Billed Treatment Time: 60 Total Billed Treatment 1 GT x 2, ex, LING Gonzalez PTA Jul 30, 2022 08:58
[2022-07-30] MEDS: MULTIVIT W/MINERALS TAB (THERAGRAN M) PO SCH (09:09)
[2022-07-30] MEDS: polyethylene glycoL POWDER 17 GM (MIRALAX) PACK PO SCH (09:09)
[2022-07-30] MEDS: SENNA W/DOCUSATE (SENOKOT S) TABLET PO SCH ×2 (09:09→21:24)
[2022-07-30] MEDS: DOCUSATE SODIUM 100 MG (COLACE) CAP PO SCH ×2 (09:09→21:24)
[2022-07-30] MEDS: LACTOBACILLUS ACIDOPHILUS (PROBIOTIC) CAPSULE PO SCH (09:09)
[2022-07-30] MEDS: ACETAMINOPHEN 325 MG TABLET PO SCH ×2 (09:10→21:19)
[2022-07-30] MEDS: KCL 10 MEQ TAB (MICRO K) PO SCH ×2 (09:10→17:12)
[2022-07-30] MEDS: CHLORTHALIDONE 25 MG TAB PO SCH (09:15)
--- NOTE | 2022-07-30 09:35 | Occupational Ther Daily Note ---
OT Current Status-Daily Note Subjective Pt up in w/c, agreeable to OT Tx. Pt states he is able to stay on ARU through Friday if the team thought that was best for him, due to recent knee immobilizer placement. Pain Numeric Pain Scale: 2 Location: Left Location Body Site: Knee Mental Status/Objective Patient Orientation: Normal For Age ADL-Treatment Therapy Code Descriptions/Definitions Functional [place] Measure: 0=Not Assessed/NA 4=Minimal Assistance 1=Total Assistance 5=Supervision or Setup 2=Maximal Assistance 6=Modified [place] 3=Moderate Assistance 7=Complete IndependenceSCALE: Activities may be completed with or without assistive devices. 7-Tridwbnied-tflrszt completes the activity by him/herself with no assistance from a helper. 5-Set-up or Clean-up Assistance-helper sets up or cleans up; patient completes activity. [place] assists only prior to or following the activity. 4-Supervision or Touching Assistance-helper provides verbal cues and/or touching/steadying and/or contact guard assistance as patient completes activity. Assistance may be provided throughout the activity or intermittently. 3-Partial/Moderate Assistance-helper does LESS THAN HALF the effort. [place] lifts, holds or supports trunk or limbs, but provides less than half the effort. 2-Substantial/Maximal Assistance-helper does MORE THAN HALF the effort. [place] lifts or holds trunk or limbs and provides more than half the effort. 8-Kuevajvil-ckzstp does ALL the effort. Patient does none of the effort to complete the activity. Or, the assistance of 2 or more helpers is required for the patient to complete the activity. If activity was not attempted, code reason: 7-Patient Refused. 9-Not Applicable-not attempted and the patient did not perform the activity before the current illness, exacerbation or injury. 10-Not Attempted due to Environmental Limitations-(lack of equipment, weather restraints, etc.). 88-Not Attempted due to Medical Conditions or Safety Concerns. Other Treatment Pt in w/c, agreeable to OT Tx. Pt states his is able to assist with LBD at discharge if needed. Pt took medications provided by RN, IND. Pt declined using FWW for functional mobility to gym, due to fatigue post PT tx. OT tx focused on increasing BUE Strength and activity tolerance. Pt propelled w/c to therapy gym using BUEs. Pt completed arm bike, x15 mins, x15-20 watt resistance, no rest breaks. Pt propelled w/c around ARU common area and back to his room. OT applied polar pack to pt's L knee. Post tx, pt in w/c, LLE elevated, polar pack and knee immobilizer on, call light in reach and all needs met. Education OT Patient Education: Correct positioning, Energy conservation, Modified ADL techniques, Progress toward Goal/Update tx plan, Purpose of tx/functional activities, Rehab process Teaching Recipient: Patient Teaching Methods: Discussion Response to Teaching: Verbalize Understanding OT Short Term Goals Short Term Goals Time Frame: Aug 02, 2022 Shower/bathe self: 4 Lower body dressin Putting on/taking off footwear: 4 OT Planishing Hammer Operator Goals Longterm Goals Time Frame: Aug 23, 2022 Acute change in mental status: 0 Inattention: 0 Disorganized thinkin Altered level of consciousness: 0 Eating (QC): 6 Oral Hygiene (QC): 6 Toileting Hygiene (QC): 6 Shower/Bathe Self (QC): 6 Upper Body Dressing (QC): 6 Lower Body Dressing (QC): 6 On/Off Footwear (QC): 6 Additional Goals: 1-Demonstrate ADL Tasks, 2-Verbalize Understanding, 3- ImproveStrength/[place] 1=Demonstrate adherence to instructed precautions during ADL tasks. 2=Patient will verbalize/demonstrate understanding of assistive devices/modifications for ADL. 3=Patient will improve strength/tolerance for activity to enable patient to perform ADL's. OT Education/Plan Problem List/Assessment Assessment: Decreased Activ Tolerance, Decreased UE Strength, Impaired Funct Balance, Impaired I ADL's, Impaired Self-Care Skills Discharge Recommendations Plan/Recommendations: Continue POC Treatment Plan/Plan of Care Patient would benefit from OT for education, treatment and training to promote independence in ADL's, mobility, safety and/or upper extremity function for ADL's. Plan of Care: ADL Retraining, Functional Mobility, Group Exercise/Act as Ind, UE Funct Exercise/Act Treatment Duration: Aug 23, 2022 Frequency: At least 5 of 7 days/Wk (IRF) Estimated Hrs Per Day: 1.5 hours per day Agreement: Yes Rehab Potential: Good Time Start Time: 09:00 Stop Time: 10:00 DATE: Jul 30, 2022 Total Time Billed (hr/min): 60 Billed Treatment Time 1, EX (20'), FA 3 (40') ODILIA NUNN OT Jul 30, 2022 09:35
--- NOTE | 2022-07-30 14:21 | Occupational Ther Daily Note ---
OT Current Status-Daily Note Subjective Pt in bed, agreeable to OT Tx with focus on UE exercises. ADL-Treatment Therapy Code Descriptions/Definitions Functional [place] Measure: 0=Not Assessed/NA 4=Minimal Assistance 1=Total Assistance 5=Supervision or Setup 2=Maximal Assistance 6=Modified [place] 3=Moderate Assistance 7=Complete IndependenceSCALE: Activities may be completed with or without assistive devices. 6-Bpsfydpdiw-zgwqsra completes the activity by him/herself with no assistance from a helper. 5-Set-up or Clean-up Assistance-helper sets up or cleans up; patient completes activity. [place] assists only prior to or following the activity. 4-Supervision or Touching Assistance-helper provides verbal cues and/or touching/steadying and/or contact guard assistance as patient completes activity. Assistance may be provided throughout the activity or intermittently. 3-Partial/Moderate Assistance-helper does LESS THAN HALF the effort. [place] lifts, holds or supports trunk or limbs, but provides less than half the effort. 2-Substantial/Maximal Assistance-helper does MORE THAN HALF the effort. [place] lifts or holds trunk or limbs and provides more than half the effort. 0-Ksuhaqjjp-lxgefo does ALL the effort. Patient does none of the effort to complete the activity. Or, the assistance of 2 or more helpers is required for the patient to complete the activity. If activity was not attempted, code reason: 7-Patient Refused. 9-Not Applicable-not attempted and the patient did not perform the activity before the current illness, exacerbation or injury. 10-Not Attempted due to Environmental Limitations-(lack of equipment, weather restraints, etc.). 88-Not Attempted due to Medical Conditions or Safety Concerns. Other Treatment Pt in bed, OT tx focused on UE strengthening and activity tolerance. Pt completed x15 reps, 5/5 BUE exercises using moderate resistance (red) theraband. Pt instructed to complete printed HEP throughout the day, increasing reps as tolerated, he verbalized understanding. Post tx, pt in bed, call light in reach and all needs met. OT Short Term Goals Short Term Goals Time Frame: Aug 02, 2022 Shower/bathe self: 4 Lower body dressin Putting on/taking off footwear: 4 OT Iron Erector Goals Alf Goals Time Frame: Aug 23, 2022 Acute change in mental status: 0 Inattention: 0 Disorganized thinkin Altered level of consciousness: 0 Eating (QC): 6 Oral Hygiene (QC): 6 Toileting Hygiene (QC): 6 Shower/Bathe Self (QC): 6 Upper Body Dressing (QC): 6 Lower Body Dressing (QC): 6 On/Off Footwear (QC): 6 Additional Goals: 1-Demonstrate ADL Tasks, 2-Verbalize Understanding, 3- ImproveStrength/[place] 1=Demonstrate adherence to instructed precautions during ADL tasks. 2=Patient will verbalize/demonstrate understanding of assistive devices/modifications for ADL. 3=Patient will improve strength/tolerance for activity to enable patient to perform ADL's. OT Education/Plan Problem List/Assessment Assessment: Decreased Activ Tolerance, Decreased UE Strength, Impaired Funct Balance, Impaired I ADL's, Impaired Self-Care Skills Discharge Recommendations Plan/Recommendations: Continue POC Treatment Plan/Plan of Care Patient would benefit from OT for education, treatment and training to promote independence in ADL's, mobility, safety and/or upper extremity function for ADL's. Plan of Care: ADL Retraining, Functional Mobility, Group Exercise/Act as Ind, UE Funct Exercise/Act Treatment Duration: Aug 23, 2022 Frequency: At least 5 of 7 days/Wk (IRF) Estimated Hrs Per Day: 1.5 hours per day Agreement: Yes Rehab Potential: Good Time Start Time: 14:00 Stop Time: 14:30 DATE: Jul 30, 2022 Total Time Billed (hr/min): 30 Billed Treatment Time 1, EX 2 ODILIA NUNN OT Jul 30, 2022 14:21
--- NOTE | 2022-07-30 15:43 | Physical Therapy Progress Note ---
Therapy Progress Note The patient has a mobility limitation that significantly impairs his ability to participate in one or more mobility-related activities of daily living (MRADL) in the home. The patient is able to safely use the walker and functional mobility deficit can be sufficiently resolved with use of a walker instead of using wheelchair, cane or another assistive device. LING KNUTSON SAFETY ANALYST Jul 30, 2022 15:43
--- NOTE | 2022-07-30 15:50 | Physical Therapy Daily Note ---
PT Daily Note-Current Subjective Pt is sitting in [facility] w/Sp present. Pt agrees to PT. Pt is concerned w/getting home on Friday. Pain Numeric Pain Scale: 3 Location: Right, Left Location Body Site: Knee Pain Description: Burning Section J - Health Conditions 1. Rarely or not at all 2. Occasionally 3. Frequently 4. Almost constantly 8. Unable to answer Pain Effect on Sleep: 2 Pain Interference with Therapy: 4 Pain Interference w/Day-to-Day: 4 Mental Status Patient Orientation: Person, Place, Time, Situation Attachments: Knee Immobilizer Transfers SCALE: Activities may be completed with or without assistive devices. 6-Wnsjywolek-xkgkpps completes the activity by him/herself with no assistance from a helper. 5-Set-up or Clean-up Assistance-helper sets up or cleans up; patient completes activity. [place] assists only prior to or following the activity. 4-Supervision or Touching Assistance-helper provides verbal cues and/or touching/steadying and/or contact guard assistance as patient completes activity. Assistance may be provided throughout the activity or intermittently. 3-Partial/Moderate Assistance-helper does LESS THAN HALF the effort. [place] lifts, holds or supports trunk or limbs, but provides less than half the effort. 2-Substantial/Maximal Assistance-helper does MORE THAN HALF the effort. [place] lifts or holds trunk or limbs and provides more than half the effort. 1-Xheecdwjz-kixtbn does ALL the effort. Patient does none of the effort to complete the activity. Or, the assistance of 2 or more helpers is required for the patient to complete the activity. If activity was not attempted, code reason: 7-Patient Refused. 9-Not Applicable-not attempted and the patient did not perform the activity before the current illness, exacerbation or injury. 10-Not Attempted due to Environmental Limitations-(lack of equipment, weather restraints, etc.). 88-Not Attempted due to Medical Conditions or Safety Concerns. Weight Bearing Right Lower Extremity: Right Weight Bearing/Tolerated Left Lower Extremity: Left Weight Bearing/Tolerated Treatments EXPANSION JOINT FINISHER reviews w/pt Seated EX as well as repositioned to comfort. Pt & Sp discussed questions w/EXPANSION JOINT FINISHER about HH PT and how it works. Assessment Current Status: Fair Progress Pt fatigues easily. PT Assisted Goals Road Crew Member Goals PT Road Crew Member Goals Time Frame: Aug 09, 2022 Roll Left & Right (QC): 6 Sit to Lying (QC): 6 Lying-Sitting on Side/Bed(QC): 6 Sit to Stand (QC): 6 ( to FWW) Chair/Qsj-fh-Maijo Xfer(QC): 6 (with FWW) Toilet Transfer (QC): 6 (with FWW) Car Transfer (QC): 6 ( with FWW) Does the Patient Walk: Yes Walk 10 feet (QC): 6 ( with FWW with improved step length (B).) Walk 50ft with 2 Turns (QC): 6 (with FWW with improved step length (B)) Walk 150 ft (QC): 5 (with FWW (increased distances may be limited by (R)/nonsurgical knee pain)) Walking 10ft on Uneven Surface: 6 (with FWW) 1 Step (curb) (QC): 5 (with FWW) 4 Steps (QC): 4 (with (B) rails (may be limited by (R)/nonsurgical knee pain)) 12 Steps (QC): 9 Picking up an Object (QC): 5 Does the Pt use WC or Scooter?: Yes Wheel 50 feet with 2 turns (QC: 6 Type: Manual Wheel 150 feet: 6 Type: Manual PT Plan Problem List Problem List: Activity Tolerance Treatment/Plan Treatment Plan: Continue Plan of Care Treatment Plan: Bed Mobility, Education, Functional Activity [place], Functional Strength, Group Therapy, Gait, Safety, Therapeutic Exercise, Transfers, Other Treatment Duration: Aug 09, 2022 Frequency: At least 5 of 7 days/Wk (IRF) Estimated Hrs Per Day: 1.5 hours per day Patient and/or Family Agrees t: Yes Time Time In: 1300 Time Out: 1330 DATE: Jul 30, 2022 Total Billed Treatment Time: 30 Total Billed Treatment 1, FA x2 (30m) LING KNUTSON PTA Jul 30, 2022 15:50
[2022-07-30] MEDS: PSYLLIUM PO SCH (17:12)
[2022-07-30 20:00] VITALS: BP 123/69
--- NOTE | 2022-07-30 21:17 | Progress Note ---
TERRY MANE 07/30/222116: Progress Note I have reviewed all therapy records for Farzad Mcpherson, a 76 year old male who was admitted to [facility] rehab unit on 07/26 for debility following L TKA on 07/24. During his stay he has been seeing PT/OT routinely. Per PT notes, upon initial evaluation he was able to roll in bed with assistance setting/cleaning-up. He could transfer from lying to sitting with supervision. All other aspects of transfering required moderate assistance. He was able to walk up to 10ft with moderate assistance and FWW. He could use a wheelchair for up to 150ft with help setting/cleaning-up. He was not safely able to attempt the stairs. By 07/30 he was able to go from sitting to standing with help setting/cleaning-up. and improving in transfers and was able to walk up to 350ft with supervision and FWW on 07/29. Today, He was placed in a knee immobilizer for the next 72 hours in an attempt to help his incision drain which hampered his ability to practice his gait training. Per OT notes, upon initial evaluation he was able to eat independently. Perform oral hygiene and dress his upper body with assistance setting/cleaning-up. he required moderate assistance with all other ADL's except footwear for which he required substantial assistance with. By 07/30, he was able eat and perform oral hygiene independently. He could bathe and dress his upper body with assistance setting/cleaning-up. He could perform toileting hygiene with supervision. He could dress his lower body and toilet transfer with moderate assistance, and could do footwear with substantial assistance. NATHALY ORTIZ DO 07/31/22 0516: Supervisory-Addendum Brief Verification & Attestation Participated in pt care: history, MDM, physical Personally performed: exam, history, MDM, supervision of care Care discussed with: Medical Student Procedures: n/a Results interpretation: Verified all documentation Verification and Attestation of Medical Student E/M Service A medical student performed and documented this service in my presence. I reviewed and verified all information documented by the medical student and made modifications to such information, when appropriate. I personally performed the physical exam and medical decision making. Nathaly Ortiz Jul 31, 2022,05:16 TERRY MANE Jul 30, 2022 21:17 NATHALY ORTIZ DO Jul 31, 2022 05:16
[2022-07-30] MEDS: ALLOPURINOL 300 MG (ZYLOPRIM) TAB PO SCH (21:19)
[2022-07-30] MEDS: PANTOPRAZOLE 40 MG (PROTONIX) TAB PO SCH (21:19)
--- NOTE | 2022-07-31 06:57 | PM&R Progress Note ---
Subjective HPI/CC On Admission Date Seen by Provider: Jul 31, 2022 Time Seen by Provider: 09:00 Subjective/Events-last exam 07/31/2022: Doing well Immobilizer will DC tomorrow afternoon Eliquis held Pain improved 07/30/2022: Immobilizer is in place left leg for total 72 hours Less drainage Holding Eliquis for now 07/29/2022: Doing well Dr Moses updated and he recommended stopping Eliquis for short time so we will hold Monitoring closely 07/28/2022: Had episode of drainage from the knee this morning but now can move his knee better No fever No falls BP stable 07/27/2022: Much improved overall Pain controlled BM+ Laxatives ordered Labs reviewed No issues except ice machine leaked last night Review of Systems General: Fatigue, Malaise Objective Exam Vital Signs Vital Signs Date Time Temp Pulse Resp B/P (MAP) Pulse Ox O2 Delivery O2 Flow Rate FiO2 07/31/22 21:00 Room Air 07/31/22 19:29 36.9 89 18 131/75 (93) 97 Capillary Refill : General Appearance: No Apparent Distress, WD/WN, Chronically ill, Obese HEENT: PERRL/EOMI, Normal ENT Inspection, Pharynx Normal Neck: Full Range of Motion, Normal Inspection, Non Tender, Supple, Carotid Bruit Respiratory: Chest Non Tender, Lungs Clear, Normal Breath Sounds, No Accessory Muscle Use, No Respiratory Distress Cardiovascular: Regular Rate, Rhythm, No Edema, No Gallop, No JVD, No Murmur, Normal Peripheral Pulses Gastrointestinal: Normal Bowel Sounds, No Organomegaly, No Pulsatile Mass, Non Tender, Soft Back: Normal Inspection, No CVA Tenderness, No Vertebral Tenderness Extremity: Normal Capillary Refill, Normal Inspection, Normal Range of Motion (except left leg and right leg is also limited), Non Tender, No Calf Tenderness, No Pedal Edema Neurologic/Psychiatric: Alert, Oriented x3, No Motor/Sensory Deficits, Normal Mood/Affect Skin: Normal Color, Warm/Dry Lymphatic: No Adenopathy Results/Procedures Lab Patient resulted labs reviewed. FIM Transfers Therapy Code Descriptions/Definitions Functional [place] Measure: 0=Not Assessed/NA 4=Minimal Assistance 1=Total Assistance 5=Supervision or Setup 2=Maximal Assistance 6=Modified [place] 3=Moderate Assistance 7=Complete IndependenceSCALE: Activities may be completed with or without assistive devices. 4-Pxhsjhfrie-gehxaot completes the activity by him/herself with no assistance from a helper. 5-Set-up or Clean-up Assistance-helper sets up or cleans up; patient completes activity. [place] assists only prior to or following the activity. 4-Supervision or Touching Assistance-helper provides verbal cues and/or touching/steadying and/or contact guard assistance as patient completes activity. Assistance may be provided throughout the activity or intermittently. 3-Partial/Moderate Assistance-helper does LESS THAN HALF the effort. [place] lifts, holds or supports trunk or limbs, but provides less than half the effort. 2-Substantial/Maximal Assistance-helper does MORE THAN HALF the effort. [place] lifts or holds trunk or limbs and provides more than half the effort. 2-Ykyxmknlh-pxvidd does ALL the effort. Patient does none of the effort to complete the activity. Or, the assistance of 2 or more helpers is required for the patient to complete the activity. If activity was not attempted, code reason: 7-Patient Refused. 9-Not Applicable-not attempted and the patient did not perform the activity before the current illness, exacerbation or injury. 10-Not Attempted due to Environmental Limitations-(lack of equipment, weather restraints, etc.). 88-Not Attempted due to Medical Conditions or Safety Concerns. Roll Left to Right (QC): 5 (with bed rail) Sit to Lying (QC): 4 Sit to Stand (QC): 5 Chair/Apg-og-Wwvsj Xfer(QC): 3 (min (A) once upright with FWW to step/stand pivot, exceptionally decreased step length (B).) Car Transfer (QC): 3 (mod (A) to lift (L) LE into car) Gait Training Does the Patient Walk?: Yes Distance: 350' Walk 10 feet (QC): 4 Walk 50 ft with 2 Turns(QC): 4 Walk 150 ft (QC): 5 Walking 10ft/uneven surface-QC: 88 Gait Persons Needed: 1 Gait Assistive Device: FWW Wheelchair Training Does the Pt Use a Wheelchair?: Yes Wheel 50 ft with 2 turns (QC): 5 Wheel 150 ft (QC): 5 Type of Wheelchair: Manual Stair Training #of Steps: 0 1 Step (curb) (QC): 88 (patient's difficulty advancing (B) LE's did not allow for safe curb step ambulation) 4 Steps (QC): 88 12 Steps (QC): 88 Balance Picking up an Object (QC): 88 ADL-Treatment Eating (QC): 6 Oral Hygiene (QC): 6 Shower/Bathe Self (QC): 5 Upper Body Dressing (QC): 5 Lower Body Dressing (QC): 3 (min A. Education on AE) On/Off Footwear (QC): 2 (Max A overall. Education on AE) Toileting Hygiene (QC): 4 (CGA in stand.) Toilet Transfer (QC): 3 (min A sit to stand from toilet.) Assessment/Plan Assessment and Plan Assess & Plan/Chief Complaint Assessment: s/p left total knee replacement Chronic right knee pain Gout HTN Obesity Chronic constipation Bloody drainage for incision-holding Eliquis 07/29/22 Plan: BM regimen Pain meds Aggressive PT OT CPM 07/27/2022: Monitor closely Ice machine 07/28/2022: Monitor drainage Will reach out to Dr Moses tomorrow 07/29/2022: Hold Eliquis 07/30/2022: Maintain immobilizer 07/31/2022: Immobilizer 1 more day (1) S/P total knee arthroplasty PHIL ORTIZ DO Jul 31, 2022 06:57
[2022-07-31 08:00] VITALS: BP 139/91
[2022-07-31] MEDS: KCL 10 MEQ TAB (MICRO K) PO SCH ×2 (08:46→18:11)
[2022-07-31] MEDS: MULTIVIT W/MINERALS TAB (THERAGRAN M) PO SCH (08:46)
[2022-07-31] MEDS: ACETAMINOPHEN 325 MG TABLET PO SCH ×2 (08:46→20:16)
[2022-07-31] MEDS: LACTOBACILLUS ACIDOPHILUS (PROBIOTIC) CAPSULE PO SCH (08:47)
[2022-07-31] MEDS: CHLORTHALIDONE 25 MG TAB PO SCH (08:48)
[2022-07-31] MEDS: SENNA W/DOCUSATE (SENOKOT S) TABLET PO SCH ×2 (08:58→20:17)
[2022-07-31] MEDS: DOCUSATE SODIUM 100 MG (COLACE) CAP PO SCH ×2 (08:58→20:16)
[2022-07-31] MEDS: polyethylene glycoL POWDER 17 GM (MIRALAX) PACK PO SCH ×2 (08:58→15:08)
--- NOTE | 2022-07-31 09:15 | Physical Therapy Daily Note ---
PT Daily Note-Current Subjective Pt. agrees to Rx, states he did not sleep at all last noc and attributes this to the discomfort of the brace. Pt. c/o pain in left knee at 6/10 off and on during Rx that felt like swelling and tightness while he was upright for gait and TRFs, this decreased with supine as well as up in w/c with LLE elevated. Pt. undecided as to whether he would like pain meds . Nurse called to consult pt regarding this. Pt. looking forward to getting the brace off tomorrow. Also discussed his home layout , no steps, pt declines attempt at steps. Pt. also c/o the knee brace is falling "down/off", this was readjusted in supine as well as the polar pack Pain Numeric Pain Scale: 6 Location: Left Location Body Site: Knee Pain Description: Pressure Section J - Health Conditions 1. Rarely or not at all 2. Occasionally 3. Frequently 4. Almost constantly 8. Unable to answer Pain Effect on Sleep: 3 Pain Interference with Therapy: 2 Pain Interference w/Day-to-Day: 2 Mental Status Patient Orientation: Normal For Age Attachments: Other-See Comments (polar pack / knee immoblizer) Transfers SCALE: Activities may be completed with or without assistive devices. 1-Asuyyvgjhb-uovhvub completes the activity by him/herself with no assistance from a helper. 5-Set-up or Clean-up Assistance-helper sets up or cleans up; patient completes activity. [place] assists only prior to or following the activity. 4-Supervision or Touching Assistance-helper provides verbal cues and/or touching/steadying and/or contact guard assistance as patient completes activity. Assistance may be provided throughout the activity or intermittently. 3-Partial/Moderate Assistance-helper does LESS THAN HALF the effort. [place] lifts, holds or supports trunk or limbs, but provides less than half the effort. 2-Substantial/Maximal Assistance-helper does MORE THAN HALF the effort. [place] lifts or holds trunk or limbs and provides more than half the effort. 0-Njshousao-qnsppl does ALL the effort. Patient does none of the effort to complete the activity. Or, the assistance of 2 or more helpers is required for the patient to complete the activity. If activity was not attempted, code reason: 7-Patient Refused. 9-Not Applicable-not attempted and the patient did not perform the activity before the current illness, exacerbation or injury. 10-Not Attempted due to Environmental Limitations-(lack of equipment, weather restraints, etc.). 88-Not Attempted due to Medical Conditions or Safety Concerns. Roll Left & Right (QC): 6 Sit to Lying (QC): 6 Lying to Sitting/Side of Bed(Q: 6 Sit to Stand (QC): 4 Chair/Mac-by-Ekrij Xfer(QC): 4 pt. with difficulty sit to stand , encouraged to use hands on arms of w/c vs pulling on walker, pt. needs CGA to min for stability to TRF wt on arms from arms of chair to FWW hand cloth checker Weight Bearing Right Lower Extremity: Right Weight Bearing/Tolerated Left Lower Extremity: Left Weight Bearing/Tolerated Gait Training Does the Patient Walk?: Yes Walk 10 feet (QC): 4 Gait Persons Needed: 1 Gait Assistive Device: FWW 10 ft x 3 FWW with step to scoot type gait pattern, heavy weight bearing on FWW, pt. needs much instruction for turning to approach bed or chair / destination, pt. tending to turn to back up for several steps vs, walking directly up to bed etc. Wheelchair Training Does the Pt Use a Wheelchair?: Yes Wheel 50 ft with 2 turns (QC): 4 Wheel 150 ft (QC): 4 Type of Wheelchair: Manual instructed in tight 360 ZTR turns, backing as well as managing LLE leg rest on off and high to low adjustment Exercises Supine Ex: Ankle pumps, Quad Set, Rolling, Glut sets, Heel Slides (right), S hort Arc Quads (right), Straight leg raise (bilat), Hip abd/add (bilat) Supine Reps: 15 (x2) Seated Therapy Exercises: Sit to stand Seated Reps: 12 indep SLR bilat and indep hip abd bilat Treatments TRFs, gait, w/c, therex Assessment Current Status: Good Progress pain decreased to 2/10 after supine with polar pack on, slow progress with gait and TRFs, indep in out bed. PT Detention Goals Towel Stretcher Goals PT Towel Stretcher Goals Time Frame: Aug 09, 2022 Roll Left & Right (QC): 6 Sit to Lying (QC): 6 Lying-Sitting on Side/Bed(QC): 6 Sit to Stand (QC): 6 ( to FWW) Chair/Lfn-bn-Uugyd Xfer(QC): 6 (with FWW) Toilet Transfer (QC): 6 (with FWW) Car Transfer (QC): 6 ( with FWW) Does the Patient Walk: Yes Walk 10 feet (QC): 6 ( with FWW with improved step length (B).) Walk 50ft with 2 Turns (QC): 6 (with FWW with improved step length (B)) Walk 150 ft (QC): 5 (with FWW (increased distances may be limited by (R)/nonsurgical knee pain)) Walking 10ft on Uneven Surface: 6 (with FWW) 1 Step (curb) (QC): 5 (with FWW) 4 Steps (QC): 4 (with (B) rails (may be limited by (R)/nonsurgical knee pain)) 12 Steps (QC): 9 Picking up an Object (QC): 5 Does the Pt use WC or Scooter?: Yes Wheel 50 feet with 2 turns (QC: 6 Type: Manual Wheel 150 feet: 6 Type: Manual PT Plan Treatment/Plan Treatment Plan: Continue Plan of Care Treatment Plan: Bed Mobility, Education, Functional Activity [place], Functional Strength, Group Therapy, Gait, Safety, Therapeutic Exercise, Transfers, Other Treatment Duration: Aug 09, 2022 Frequency: At least 5 of 7 days/Wk (IRF) Estimated Hrs Per Day: 1.5 hours per day Patient and/or Family Agrees t: Yes Safety Risks/Education Patient Education: Gait Training, Transfer Techniques, Correct Positioning, Reviewed Don/Doff Brace (by PT dept and nursing only), Disease Process, Safety Issues Teaching Recipient: Patient Teaching Methods: Demonstration, Discussion Response to Teaching: Verbalize Understanding, Return Demonstration, Reinforcement Needed Time Time In: 750 Time Out: 920 DATE: Jul 31, 2022 Total Billed Treatment Time: 90 Total Billed Treatment 1,GT25m,FA30m,kEX35m NIURKA VAUGHAN PTA Jul 31, 2022 09:15
--- NOTE | 2022-07-31 10:58 | Occupational Ther Daily Note ---
OT Current Status-Daily Note Subjective Pt alert, sitting EOB. Pt agrees to therapy. Pt c/o throbbing pain of L LE, nrsg aware, polar pack on L knee at end of session. Mental Status/Objective Patient Orientation: Person, Place, Time, Situation Attachments: IV, Knee Immobilizer ADL-Treatment Declines shower or sponge bath until Friday when knee immobilizer is off. Therapy Code Descriptions/Definitions Functional [place] Measure: 0=Not Assessed/NA 4=Minimal Assistance 1=Total Assistance 5=Supervision or Setup 2=Maximal Assistance 6=Modified [place] 3=Moderate Assistance 7=Complete IndependenceSCALE: Activities may be completed with or without assistive devices. 4-Cohaazolsv-nxviais completes the activity by him/herself with no assistance from a helper. 5-Set-up or Clean-up Assistance-helper sets up or cleans up; patient completes activity. [place] assists only prior to or following the activity. 4-Supervision or Touching Assistance-helper provides verbal cues and/or touching/steadying and/or contact guard assistance as patient completes a ctivity. Assistance may be provided throughout the activity or intermittently. 3-Partial/Moderate Assistance-helper does LESS THAN HALF the effort. [place] lifts, holds or supports trunk or limbs, but provides less than half the effort. 2-Substantial/Maximal Assistance-helper does MORE THAN HALF the effort. [place] lifts or holds trunk or limbs and provides more than half the effort. 4-Olksqslsn-frqmhv does ALL the effort. Patient does none of the effort to complete the activity. Or, the assistance of 2 or more helpers is required for the patient to complete the activity. If activity was not attempted, code reason: 7-Patient Refused. 9-Not Applicable-not attempted and the patient did not perform the activity before the current illness, exacerbation or injury. 10-Not Attempted due to Environmental Limitations-(lack of equipment, weather restraints, etc.). 88-Not Attempted due to Medical Conditions or Safety Concerns. Other Treatment Pt completed B UE hand, wrist and forearm exercises to increase strength for daily functional tasks. Skilled instruction given for correct technique and modifications when necessary. 3# hand wt used for wrist flex/ext/uln dev/rad dev. Theraputty (medium) for pinch and wirer/Theratubing for wrist/hand strengthening. Pt tolerated well. Noticeable strength difference from R hand/wrist to L hand/wrist. HEP will be given to pt at next treatment session. After session, pt sitting in w/c with call light/phone in reach. All needs met in room. OT Short Term Goals Short Term Goals Time Frame: Aug 02, 2022 Shower/bathe self: 4 Lower body dressin Putting on/taking off footwear: 4 OT Material Handler 2Nd Shift Goals Chcf Goals Time Frame: Aug 23, 2022 Acute change in mental status: 0 Inattention: 0 Disorganized thinkin Altered level of consciousness: 0 Eating (QC): 6 Oral Hygiene (QC): 6 Toileting Hygiene (QC): 6 Shower/Bathe Self (QC): 6 Upper Body Dressing (QC): 6 Lower Body Dressing (QC): 6 On/Off Footwear (QC): 6 Additional Goals: 1-Demonstrate ADL Tasks, 2-Verbalize Understanding, 3- ImproveStrength/[place] 1=Demonstrate adherence to instructed precautions during ADL tasks. 2=Patient will verbalize/demonstrate understanding of assistive devices/modifications for ADL. 3=Patient will improve strength/tolerance for activity to enable patient to perform ADL's. OT Education/Plan Problem List/Assessment Assessment: Decreased Activ Tolerance, Decreased UE Strength, Impaired Self- Care Skills Discharge Recommendations Plan/Recommendations: Continue POC Treatment Plan/Plan of Care Patient would benefit from OT for education, treatment and training to promote independence in ADL's, mobility, safety and/or upper extremity function for ADL's. Plan of Care: ADL Retraining, Functional Mobility, Group Exercise/Act as Ind, UE Funct Exercise/Act Treatment Duration: Aug 23, 2022 Frequency: At least 5 of 7 days/Wk (IRF) Estimated Hrs Per Day: 1.5 hours per day Agreement: Yes Rehab Potential: Good Time Start Time: 10:00 Stop Time: 11:00 DATE: Jul 31, 2022 Total Time Billed (hr/min): 60 Billed Treatment Time 1 visit-EX 4 (60 min) BAMBI ROSE Jul 31, 2022 10:57
--- NOTE | 2022-07-31 14:17 | Occupational Ther Daily Note ---
OT Current Status-Daily Note Subjective Pt alert, lying in bed. Pt agrees to therapy. No c/o pain. Mental Status/Objective Patient Orientation: Person, Place, Time, Situation Attachments: Knee Immobilizer ADL-Treatment Therapy Code Descriptions/Definitions Functional [place] Measure: 0=Not Assessed/NA 4=Minimal Assistance 1=Total Assistance 5=Supervision or Setup 2=Maximal Assistance 6=Modified [place] 3=Moderate Assistance 7=Complete IndependenceSCALE: Activities may be completed with or without assistive devices. 1-Woehesnigo-xnutpui completes the activity by him/herself with no assistance from a helper. 5-Set-up or Clean-up Assistance-helper sets up or cleans up; patient completes activity. [place] assists only prior to or following the activity. 4-Supervision or Touching Assistance-helper provides verbal cues and/or touching/steadying and/or contact guard assistance as patient completes activity. Assistance may be provided throughout the activity or intermittently. 3-Partial/Moderate Assistance-helper does LESS THAN HALF the effort. [place] lifts, holds or supports trunk or limbs, but provides less than half the effort. 2-Substantial/Maximal Assistance-helper does MORE THAN HALF the effort. [place] lifts or holds trunk or limbs and provides more than half the effort. 4-Lagyobzoc-zdkcms does ALL the effort. Patient does none of the effort to complete the activity. Or, the assistance of 2 or more helpers is required for the patient to complete the activity. If activity was not attempted, code reason: 7-Patient Refused. 9-Not Applicable-not attempted and the patient did not perform the activity before the current illness, exacerbation or injury. 10-Not Attempted due to Environmental Limitations-(lack of equipment, weather restraints, etc.). 88-Not Attempted due to Medical Conditions or Safety Concerns. Other Treatment Reviewed AM exercises and given HEP for use in room and home. present to learn also. Pt demonstrated understanding of each exercise though will need further skilled instruction when completing for consistent correct technique. After therapy, pt sitting up in bed with call light/phone in reach. Polar Pack in place. All needs met. OT Short Term Goals Short Term Goals Time Frame: Aug 02, 2022 Shower/bathe self: 4 Lower body dressin Putting on/taking off footwear: 4 OT Correction Goals Correction Goals Time Frame: Aug 23, 2022 Acute change in mental status: 0 Inattention: 0 Disorganized thinkin Altered level of consciousness: 0 Eating (QC): 6 Oral Hygiene (QC): 6 Toileting Hygiene (QC): 6 Shower/Bathe Self (QC): 6 Upper Body Dressing (QC): 6 Lower Body Dressing (QC): 6 On/Off Footwear (QC): 6 Additional Goals: 1-Demonstrate ADL Tasks, 2-Verbalize Understanding, 3- ImproveStrength/[place] 1=Demonstrate adherence to instructed precautions during ADL tasks. 2=Patient will verbalize/demonstrate understanding of assistive devices/modifications for ADL. 3=Patient will improve strength/tolerance for activity to enable patient to perform ADL's. OT Education/Plan Problem List/Assessment Assessment: Decreased Activ Tolerance, Decreased UE Strength Discharge Recommendations Plan/Recommendations: Continue POC Treatment Plan/Plan of Care Patient would benefit from OT for education, treatment and training to promote independence in ADL's, mobility, safety and/or upper extremity function for ADL's. Plan of Care: ADL Retraining, Functional Mobility, Group Exercise/Act as Ind, UE Funct Exercise/Act Treatment Duration: Aug 23, 2022 Frequency: At least 5 of 7 days/Wk (IRF) Estimated Hrs Per Day: 1.5 hours per day Agreement: Yes Rehab Potential: Good Time Start Time: 13:30 Stop Time: 13:30 DATE: Jul 31, 2022 Total Time Billed (hr/min): 30 Billed Treatment Time 1 visit-EX 2 (30 min) BAMBI ROSE Jul 31, 2022 14:17
--- NOTE | 2022-07-31 15:57 | Physical Therapy Daily Note ---
PT Daily Note-Current Subjective No new c/o about (L) knee. Multiple questions re. kinesiotape -- all questions answered to patient's satisfaction. Pain Section J - Health Conditions 1. Rarely or not at all 2. Occasionally 3. Frequently 4. Almost constantly 8. Unable to answer Pain Effect on Sleep: 3 Pain Interference with Therapy: 2 Pain Interference w/Day-to-Day: 2 Appearance Trial strip of kinesiotape removed from patient's (R) wrist -- no redness, no irritation. OK to proceed with kinesiotaping at (L) knee to help relieve post- op edema. Transfers SCALE: Activities may be completed with or without assistive devices. 9-Wtqikabltq-kziswlg completes the activity by him/herself with no assistance from a helper. 5-Set-up or Clean-up Assistance-helper sets up or cleans up; patient completes activity. [place] assists only prior to or following the activity. 4-Supervision or Touching Assistance-helper provides verbal cues and/or touching/steadying and/or contact guard assistance as patient completes activity. Assistance may be provided throughout the activity or intermittently. 3-Partial/Moderate Assistance-helper does LESS THAN HALF the effort. [place] lifts, holds or supports trunk or limbs, but provides less than half the effort. 2-Substantial/Maximal Assistance-helper does MORE THAN HALF the effort. [place] lifts or holds trunk or limbs and provides more than half the effort. 0-Xccwcfciw-dtfgxt does ALL the effort. Patient does none of the effort to com plete the activity. Or, the assistance of 2 or more helpers is required for the patient to complete the activity. If activity was not attempted, code reason: 7-Patient Refused. 9-Not Applicable-not attempted and the patient did not perform the activity before the current illness, exacerbation or injury. 10-Not Attempted due to Environmental Limitations-(lack of equipment, weather restraints, etc.). 88-Not Attempted due to Medical Conditions or Safety Concerns. Weight Bearing Right Lower Extremity: Right Weight Bearing/Tolerated Left Lower Extremity: Left Weight Bearing/Tolerated Treatments Explained that Kinesiotape is being applied to help reduce post-op edema. Kinesiotape strips x 2 anchored at (L) thigh, with 4 longitudinally cut strips applied down medial and lateral sides of (L) knee, avoiding dressing. Tape rubbed to activate adhesive. Patient instructed that tape will stay in place anywhere from 1-7 days depending on oil content of skin. Tape strips may begin to roll and can be trimmed. Tape will come off on it's own (will peel away easily) when it is time for it to come off. Patient may bathe with tape on, but do not scrub kinesiotape with soapy washcloth/loofa. Assessment All patient's questions answered re. kinesiotape. PT Short Term Goals Short Term Goals Time Frame: Jul 31, 2022 PT Industrial Safety And Health Manager Goals Industrial Safety And Health Manager Goals PT Industrial Safety And Health Manager Goals Time Frame: Aug 09, 2022 Roll Left & Right (QC): 6 Sit to Lying (QC): 6 Lying-Sitting on Side/Bed(QC): 6 Sit to Stand (QC): 6 ( to FWW) Chair/Wlu-gm-Bpedm Xfer(QC): 6 (with FWW) Toilet Transfer (QC): 6 (with FWW) Car Transfer (QC): 6 ( with FWW) Does the Patient Walk: Yes Walk 10 feet (QC): 6 ( with FWW with improved step length (B).) Walk 50ft with 2 Turns (QC): 6 (with FWW with improved step length (B)) Walk 150 ft (QC): 5 (with FWW (increased distances may be limited by (R)/nonsurgical knee pain)) Walking 10ft on Uneven Surface: 6 (with FWW) 1 Step (curb) (QC): 5 (with FWW) 4 Steps (QC): 4 (with (B) rails (may be limited by (R)/nonsurgical knee pain)) 12 Steps (QC): 9 Picking up an Object (QC): 5 Does the Pt use WC or Scooter?: Yes Wheel 50 feet with 2 turns (QC: 6 Type: Manual Wheel 150 feet: 6 Type: Manual PT Plan Problem List Post-op edema Treatment/Plan Treatment Plan: Continue Plan of Care Treatment Plan: Bed Mobility, Education, Functional Activity [place], Functional Strength, Group Therapy, Gait, Safety, Therapeutic Exercise, Transfers, Other Manual therapy for kinesiotaping. Treatment Duration: Aug 09, 2022 Frequency: At least 5 of 7 days/Wk (IRF) Estimated Hrs Per Day: 1.5 hours per day Patient and/or Family Agrees t: Yes Safety Risks/Education Teaching Recipient: Patient Teaching Methods: Demonstration, Discussion Education re. kinesiotape. Time Time In: 1500 Time Out: 1515 DATE: Jul 31, 2022 Total Billed Treatment Time: 15 Total Billed Treatment Manual therapy - 15' Jennie Sosa PT Jul 31, 2022 15:57
[2022-07-31] MEDS: PSYLLIUM PO SCH (18:11)
[2022-07-31 19:29] VITALS: BP 131/75
[2022-07-31] MEDS: ALLOPURINOL 300 MG (ZYLOPRIM) TAB PO SCH (20:16)
[2022-07-31] MEDS: PANTOPRAZOLE 40 MG (PROTONIX) TAB PO SCH (20:16)
[2022-08-01 08:00] VITALS: BP 139/78
[2022-08-01] MEDS: MULTIVIT W/MINERALS TAB (THERAGRAN M) PO SCH (08:16)
[2022-08-01] MEDS: SENNA W/DOCUSATE (SENOKOT S) TABLET PO SCH ×2 (08:16→20:57)
[2022-08-01] MEDS: LACTOBACILLUS ACIDOPHILUS (PROBIOTIC) CAPSULE PO SCH (08:16)
[2022-08-01] MEDS: DOCUSATE SODIUM 100 MG (COLACE) CAP PO SCH ×2 (08:16→20:56)
[2022-08-01] MEDS: polyethylene glycoL POWDER 17 GM (MIRALAX) PACK PO SCH (08:16)
[2022-08-01] MEDS: KCL 10 MEQ TAB (MICRO K) PO SCH ×2 (08:17→17:28)
[2022-08-01] MEDS: CHLORTHALIDONE 25 MG TAB PO SCH (08:17)
[2022-08-01] MEDS: ACETAMINOPHEN 325 MG TABLET PO SCH ×2 (08:17→20:45)
--- NOTE | 2022-08-01 10:23 | Physical Therapy Daily Note ---
PT Daily Note-Current Subjective Pt sitting in [facility] in room w/Sp present upon arrival. Pt agrees to PT. Pain Location: Left Location Body Site: Knee Pain Description: [place] Section J - Health Conditions 1. Rarely or not at all 2. Occasionally 3. Frequently 4. Almost constantly 8. Unable to answer Pain Effect on Sleep: 3 Pain Interference with Therapy: 2 Pain Interference w/Day-to-Day: 2 Mental Status Patient Orientation: Person, Place Attachments: Knee Immobilizer Transfers SCALE: Activities may be completed with or without assistive devices. 4-Zhksqkaevb-xcpsdhk completes the activity by him/herself with no assistance from a helper. 5-Set-up or Clean-up Assistance-helper sets up or cleans up; patient completes activity. [place] assists only prior to or following the activity. 4-Supervision or Touching Assistance-helper provides verbal cues and/or t ouching/steadying and/or contact guard assistance as patient completes activity. Assistance may be provided throughout the activity or intermittently. 3-Partial/Moderate Assistance-helper does LESS THAN HALF the effort. [place] lifts, holds or supports trunk or limbs, but provides less than half the effort. 2-Substantial/Maximal Assistance-helper does MORE THAN HALF the effort. [place] lifts or holds trunk or limbs and provides more than half the effort. 1-Lwanbjjzf-vuehsv does ALL the effort. Patient does none of the effort to complete the activity. Or, the assistance of 2 or more helpers is required for the patient to complete the activity. If activity was not attempted, code reason: 7-Patient Refused. 9-Not Applicable-not attempted and the patient did not perform the activity before the current illness, exacerbation or injury. 10-Not Attempted due to Environmental Limitations-(lack of equipment, weather restraints, etc.). 88-Not Attempted due to Medical Conditions or Safety Concerns. Weight Bearing Right Lower Extremity: Right Weight Bearing/Tolerated Left Lower Extremity: Left Weight Bearing/Tolerated Exercises Supine Ex: Ankle pumps, Quad Set, Glut sets, Heel Slides, Short Arc Quads, Straight leg raise, Hip abd/add Supine Reps: 15 Seated Therapy Exercises: Ankle pumps, Long arc quads, Hip flexion, Glut set Seated Reps: 15 Treatments Pt wants Miralax to start tx so CLINICAL RESEARCH NURSE talks to Nurse. CLINICAL RESEARCH NURSE reviews written HEP for Supine & Seated Ex as well as pt's questions for HH vs OP PT & Nursing, how soon driving can occur & knee immobilizer. Pt resting in [facility] at end of tx. All needs met, call light in hand. Assessment Current Status: Fair Progress Pt fatigues, needing RB. Pt at times has difficulty retaining info given. PT Short Term Goals Short Term Goals Time Frame: Jul 31, 2022 PT Tool And Die Designer Goals Tool And Die Designer Goals PT Tool And Die Designer Goals Time Frame: Aug 09, 2022 Roll Left & Right (QC): 6 Sit to Lying (QC): 6 Lying-Sitting on Side/Bed(QC): 6 Sit to Stand (QC): 6 ( to FWW) Chair/Wiz-ab-Whiei Xfer(QC): 6 (with FWW) Toilet Transfer (QC): 6 (with FWW) Car Transfer (QC): 6 ( with FWW) Does the Patient Walk: Yes Walk 10 feet (QC): 6 ( with FWW with improved step length (B).) Walk 50ft with 2 Turns (QC): 6 (with FWW with improved step length (B)) Walk 150 ft (QC): 5 (with FWW (increased distances may be limited by (R)/nonsurgical knee pain)) Walking 10ft on Uneven Surface: 6 (with FWW) 1 Step (curb) (QC): 5 (with FWW) 4 Steps (QC): 4 (with (B) rails (may be limited by (R)/nonsurgical knee pain)) 12 Steps (QC): 9 Picking up an Object (QC): 5 Does the Pt use WC or Scooter?: Yes Wheel 50 feet with 2 turns (QC: 6 Type: Manual Wheel 150 feet: 6 Type: Manual PT Plan Problem List Problem List: Activity Tolerance Treatment/Plan Treatment Plan: Continue Plan of Care Treatment Plan: Bed Mobility, Education, Functional Activity [place], Functional Strength, Group Therapy, Gait, Safety, Therapeutic Exercise, Transfers, Other Treatment Duration: Aug 09, 2022 Frequency: At least 5 of 7 days/Wk (IRF) Estimated Hrs Per Day: 1.5 hours per day Patient and/or Family Agrees t: Yes Safety Risks/Education Patient Education: Issued Written HEP, Safety Issues Teaching Recipient: Patient, Significant Other Teaching Methods: Demonstration, Discussion Response to Teaching: Verbalize Understanding, Return Demonstration Time Time In: 800 Time Out: 900 DATE: Aug 01, 2022 Total Billed Treatment Time: 60 Total Billed Treatment 1, EX x2 (30m) & FA x2 (30m) LING KNUTSON PTA Aug 01, 2022 10:23
--- NOTE | 2022-08-01 10:46 | PM&R Progress Note ---
Subjective HPI/CC On Admission Date Seen by Provider: Aug 01, 2022 Time Seen by Provider: 11:00 Subjective/Events-last exam 08/01/2022: Immobilizer will be DC this afternoon Eliquis will restart Dressing changes will be taught by nurse 07/31/2022: Doing well Immobilizer will DC tomorrow afternoon Eliquis held Pain improved 07/30/2022: Immobilizer is in place left leg for total 72 hours Less drainage Holding Eliquis for now 07/29/2022: Doing well Dr Moses updated and he recommended stopping Eliquis for short time so we will hold Monitoring closely 07/28/2022: Had episode of drainage from the knee this morning but now can move his knee better No fever No falls BP stable 07/27/2022: Much improved overall Pain controlled BM+ Laxatives ordered Labs reviewed No issues except ice machine leaked last night Review of Systems General: Fatigue, Malaise Objective Exam Vital Signs Vital Signs Date Time Temp Pulse Resp B/P (MAP) Pulse Ox O2 Delivery O2 Flow Rate FiO2 08/01/22 21:01 Room Air 08/01/22 19:58 36.5 101 16 149/93 (111) 96 Capillary Refill : General Appearance: No Apparent Distress, WD/WN, Chronically ill, Obese HEENT: PERRL/EOMI, Normal ENT Inspection, Pharynx Normal Neck: Full Range of Motion, Normal Inspection, Non Tender, Supple, Carotid Bruit Respiratory: Chest Non Tender, Lungs Clear, Normal Breath Sounds, No Accessory Muscle Use, No Respiratory Distress Cardiovascular: Regular Rate, Rhythm, No Edema, No Gallop, No JVD, No Murmur, Normal Peripheral Pulses Gastrointestinal: Normal Bowel Sounds, No Organomegaly, No Pulsatile Mass, Non Tender, Soft Back: Normal Inspection, No CVA Tenderness, No Vertebral Tenderness Extremity: Normal Capillary Refill, Normal Inspection, Normal Range of Motion (except left leg and right leg is also limited), Non Tender, No Calf Tenderness, No Pedal Edema Neurologic/Psychiatric: Alert, Oriented x3, No Motor/Sensory Deficits, Normal Mood/Affect Skin: Normal Color, Warm/Dry Lymphatic: No Adenopathy Results/Procedures Lab Patient resulted labs reviewed. FIM Transfers Therapy Code Descriptions/Definitions Functional [place] Measure: 0=Not Assessed/NA 4=Minimal Assistance 1=Total Assistance 5=Supervision or Setup 2=Maximal Assistance 6=Modified [place] 3=Moderate Assistance 7=Complete IndependenceSCALE: Activities may be completed with or without assistive devices. 6-Voiyyfydwy-czhnyse completes the activity by him/herself with no assistance from a helper. 5-Set-up or Clean-up Assistance-helper sets up or cleans up; patient completes activity. [place] assists only prior to or following the activity. 4-Supervision or Touching Assistance-helper provides verbal cues and/or touching/steadying and/or contact guard assistance as patient completes activity. Assistance may be provided throughout the activity or intermittently. 3-Partial/Moderate Assistance-helper does LESS THAN HALF the effort. [place] lifts, holds or supports trunk or limbs, but provides less than half the effort. 2-Substantial/Maximal Assistance-helper does MORE THAN HALF the effort. [place] lifts or holds trunk or limbs and provides more than half the effort. 7-Skhxvrvnz-yiyits does ALL the effort. Patient does none of the effort to complete the activity. Or, the assistance of 2 or more helpers is required for the patient to complete the activity. If activity was not attempted, code reason: 7-Patient Refused. 9-Not Applicable-not attempted and the patient did not perform the activity before the current illness, exacerbation or injury. 10-Not Attempted due to Environmental Limitations-(lack of equipment, weather restraints, etc.). 88-Not Attempted due to Medical Conditions or Safety Concerns. Roll Left to Right (QC): 6 Sit to Lying (QC): 6 Sit to Stand (QC): 4 Chair/Ceu-ag-Zbxjq Xfer(QC): 4 Car Transfer (QC): 3 (mod (A) to lift (L) LE into car) Gait Training Does the Patient Walk?: Yes Distance: 350' Walk 10 feet (QC): 4 Walk 50 ft with 2 Turns(QC): 4 Walk 150 ft (QC): 5 Walking 10ft/uneven surface-QC: 88 Gait Persons Needed: 1 Gait Assistive Device: FWW Wheelchair Training Does the Pt Use a Wheelchair?: Yes Wheel 50 ft with 2 turns (QC): 4 Wheel 150 ft (QC): 4 Type of Wheelchair: Manual Stair Training #of Steps: 0 1 Step (curb) (QC): 88 (patient's difficulty advancing (B) LE's did not allow for safe curb step ambulation) 4 Steps (QC): 88 12 Steps (QC): 88 Balance Picking up an Object (QC): 88 ADL-Treatment Eating (QC): 6 Oral Hygiene (QC): 6 Shower/Bathe Self (QC): 5 Upper Body Dressing (QC): 5 Lower Body Dressing (QC): 3 (min A. Education on AE) On/Off Footwear (QC): 2 (Max A overall. Education on AE) Toileting Hygiene (QC): 4 (CGA in stand.) Toilet Transfer (QC): 3 (min A sit to stand from toilet.) Assessment/Plan Assessment and Plan Assess & Plan/Chief Complaint Assessment: s/p left total knee replacement Chronic right knee pain Gout HTN Obesity Chronic constipation Bloody drainage for incision-holding Eliquis 07/29/22 and will restart 08/02/22 Plan: BM regimen Pain meds Aggressive PT OT CPM 07/27/2022: Monitor closely Ice machine 07/28/2022: Monitor drainage Will reach out to Dr Moses tomorrow 07/29/2022: Hold Eliquis 07/30/2022: Maintain immobilizer 07/31/2022: Immobilizer 1 more day 08/01/2022: Restart Eliquis tomorrow (1) S/P total knee arthroplasty PHIL ORTIZ DO Aug 01, 2022 10:46
--- NOTE | 2022-08-01 12:53 | Occupational Ther Daily Note ---
OT Current Status-Daily Note Subjective Pt alert, sitting in w/c. Pt agrees to therapy. No c/o pain. Mental Status/Objective Patient Orientation: Person, Place, Time, Situation Attachments: Knee Immobilizer ADL-Treatment Toileting CGA for safety. Therapy Code Descriptions/Definitions Functional [place] Measure: 0=Not Assessed/NA 4=Minimal Assistance 1=Total Assistance 5=Supervision or Setup 2=Maximal Assistance 6=Modified [place] 3=Moderate Assistance 7=Complete IndependenceSCALE: Activities may be completed with or without assistive devices. 8-Hbrlwebmlb-ebadamm completes the activity by him/herself with no assistance from a helper. 5-Set-up or Clean-up Assistance-helper sets up or cleans up; patient completes activity. [place] assists only prior to or following the activity. 4-Supervision or Touching Assistance-helper provides verbal cues and/or touching/steadying and/or contact guard assistance as patient completes activity. Assistance may be provided throughout the activity or intermittently. 3-Partial/Moderate Assistance-helper does LESS THAN HALF the effort. [place] lifts, holds or supports trunk or limbs, but provides less than half the effort. 2-Substantial/Maximal Assistance-helper does MORE THAN HALF the effort. [place] lifts or holds trunk or limbs and provides more than half the effort. 5-Ubdqumahn-kpheze does ALL the effort. Patient does none of the effort to complete the activity. Or, the assistance of 2 or more helpers is required for the patient to complete the activity. If activity was not attempted, code reason: 7-Patient Refused. 9-Not Applicable-not attempted and the patient did not perform the activity before the current illness, exacerbation or injury. 10-Not Attempted due to Environmental Limitations-(lack of equipment, weather restraints, etc.). 88-Not Attempted due to Medical Conditions or Safety Concerns. Other Treatment Pt propels w/c to therapy gym. B UE exercises completed to increase strength, ROM and stamina for daily functional tasks. Pt completed dowel rosalba exercises against gravity and with 3# wt attached timed and in sets to increase strength and stamina. Pt completed fine motor tasks to increase strength for daily functional tasks. Arm pulleys completed for 5 min slowly for stretching B shldrs, increasing AROM. After therapy, pt sitting in w/c with call light/phone in reach. all needs met in room. OT Short Term Goals Short Term Goals Time Frame: Aug 02, 2022 Shower/bathe self: 4 Lower body dressin Putting on/taking off footwear: 4 OT Mcfp Goals Firebreak Cutter Goals Time Frame: Aug 23, 2022 Acute change in mental status: 0 Inattention: 0 Disorganized thinkin Altered level of consciousness: 0 Eating (QC): 6 Oral Hygiene (QC): 6 Toileting Hygiene (QC): 6 Shower/Bathe Self (QC): 6 Upper Body Dressing (QC): 6 Lower Body Dressing (QC): 6 On/Off Footwear (QC): 6 Additional Goals: 1-Demonstrate ADL Tasks, 2-Verbalize Understanding, 3- ImproveStrength/[place] 1=Demonstrate adherence to instructed precautions during ADL tasks. 2=Patient will verbalize/demonstrate understanding of assistive devices/modifications for ADL. 3=Patient will improve strength/tolerance for activity to enable patient to perform ADL's. OT Education/Plan Problem List/Assessment Assessment: Decreased Activ Tolerance, Decreased UE Strength Discharge Recommendations Plan/Recommendations: Continue POC Treatment Plan/Plan of Care Patient would benefit from OT for education, treatment and training to promote independence in ADL's, mobility, safety and/or upper extremity function for ADL's. Plan of Care: ADL Retraining, Functional Mobility, Group Exercise/Act as Ind, UE Funct Exercise/Act Treatment Duration: Aug 23, 2022 Frequency: At least 5 of 7 days/Wk (IRF) Estimated Hrs Per Day: 1.5 hours per day Agreement: Yes Rehab Potential: Good Time Start Time: 09:30 Stop Time: 11:00 DATE: Aug 01, 2022 Total Time Billed (hr/min): 90 Billed Treatment Time 1 visit-ADL 1 (10 min) EX 5 (80 min) BAMBI ROSE Aug 01, 2022 12:53
--- NOTE | 2022-08-01 15:46 | Physical Therapy Daily Note ---
PT Daily Note-Current Subjective Pt sitting up in bed upon arrival. Pt agrees to PT. Pain Section J - Health Conditions 1. Rarely or not at all 2. Occasionally 3. Frequently 4. Almost constantly 8. Unable to answer Pain Effect on Sleep: 3 Pain Interference with Therapy: 2 Pain Interference w/Day-to-Day: 2 Mental Status Patient Orientation: Person, Place, Situation Attachments: Knee Immobilizer Transfers SCALE: Activities may be completed with or without assistive devices. 4-Gvdcuuxoop-bkknmvh completes the activity by him/herself with no assistance f rom a helper. 5-Set-up or Clean-up Assistance-helper sets up or cleans up; patient completes activity. [place] assists only prior to or following the activity. 4-Supervision or Touching Assistance-helper provides verbal cues and/or touching/steadying and/or contact guard assistance as patient completes activity. Assistance may be provided throughout the activity or intermittently. 3-Partial/Moderate Assistance-helper does LESS THAN HALF the effort. [place] lifts, holds or supports trunk or limbs, but provides less than half the effort. 2-Substantial/Maximal Assistance-helper does MORE THAN HALF the effort. [place] lifts or holds trunk or limbs and provides more than half the effort. 9-Hguikeuvh-snpqgg does ALL the effort. Patient does none of the effort to complete the activity. Or, the assistance of 2 or more helpers is required for the patient to complete the activity. If activity was not attempted, code reason: 7-Patient Refused. 9-Not Applicable-not attempted and the patient did not perform the activity before the current illness, exacerbation or injury. 10-Not Attempted due to Environmental Limitations-(lack of equipment, weather restraints, etc.). 88-Not Attempted due to Medical Conditions or Safety Concerns. Sit to Lying (QC): 5 Lying to Sitting/Side of Bed(Q: 5 Sit to Stand (QC): 5 Weight Bearing Right Lower Extremity: Right Weight Bearing/Tolerated Left Lower Extremity: Left Weight Bearing/Tolerated Gait Training Does the Patient Walk?: Yes Distance: 250' Walk 10 feet (QC): 5 Walk 50 ft with 2 Turns(QC): 5 Walk 150 ft (QC): 5 Gait Assistive Device: FWW 250' w/approx. 4 short RB as needed. Pt is able to TF w/o assistance. Treatments TF to EOB & stands then amb in hallway taking RB as needed. Pt returns to bed at end of tx w/all needs met, call light in hand and rest in bed. Assessment Current Status: Good Progress Pt is unsure of self but completes tasks much better than pt feels he does. No assistance needed for TF. PT Short Term Goals Short Term Goals Time Frame: Jul 31, 2022 PT Guard Chief Goals Group Home Goals PT Group Home Goals Time Frame: Aug 09, 2022 Roll Left & Right (QC): 6 Sit to Lying (QC): 6 Lying-Sitting on Side/Bed(QC): 6 Sit to Stand (QC): 6 ( to FWW) Chair/Lem-tr-Ugmed Xfer(QC): 6 (with FWW) Toilet Transfer (QC): 6 (with FWW) Car Transfer (QC): 6 ( with FWW) Does the Patient Walk: Yes Walk 10 feet (QC): 6 ( with FWW with improved step length (B).) Walk 50ft with 2 Turns (QC): 6 (with FWW with improved step length (B)) Walk 150 ft (QC): 5 (with FWW (increased distances may be limited by (R)/nonsurgical knee pain)) Walking 10ft on Uneven Surface: 6 (with FWW) 1 Step (curb) (QC): 5 (with FWW) 4 Steps (QC): 4 (with (B) rails (may be limited by (R)/nonsurgical knee pain)) 12 Steps (QC): 9 Picking up an Object (QC): 5 Does the Pt use WC or Scooter?: Yes Wheel 50 feet with 2 turns (QC: 6 Type: Manual Wheel 150 feet: 6 Type: Manual PT Plan Problem List Problem List: Activity Tolerance Treatment/Plan Treatment Plan: Continue Plan of Care Treatment Plan: Bed Mobility, Education, Functional Activity [place], Functional Strength, Group Therapy, Gait, Safety, Therapeutic Exercise, Transfers, Other Treatment Duration: Aug 09, 2022 Frequency: At least 5 of 7 days/Wk (IRF) Estimated Hrs Per Day: 1.5 hours per day Patient and/or Family Agrees t: Yes Safety Risks/Education Patient Education: Gait Training, Correct Positioning Teaching Recipient: Patient Teaching Methods: Discussion Response to Teaching: Verbalize Understanding Time Time In: 1330 Time Out: 1400 DATE: Aug 01, 2022 Total Billed Treatment Time: 30 Total Billed Treatment 1, GT x2 (30m) LING KNUTSON TEST ENGINEERING MANAGER Aug 01, 2022 15:46
[2022-08-01] MEDS: PSYLLIUM PO SCH (17:29)
[2022-08-01 19:58] VITALS: BP 149/93
[2022-08-01] MEDS: ALLOPURINOL 300 MG (ZYLOPRIM) TAB PO SCH (20:45)
[2022-08-01] MEDS: PANTOPRAZOLE 40 MG (PROTONIX) TAB PO SCH (20:45)
[2022-08-02 08:06] VITALS: BP 131/72
[2022-08-02] MEDS: LACTOBACILLUS ACIDOPHILUS (PROBIOTIC) CAPSULE PO SCH (08:14)
[2022-08-02] MEDS: KCL 10 MEQ TAB (MICRO K) PO SCH ×2 (08:15→17:11)
[2022-08-02] MEDS: ACETAMINOPHEN 325 MG TABLET PO SCH ×2 (08:15→21:11)
[2022-08-02] MEDS: APIXABAN 5 MG (ELIQUIS) TABLET PO SCH ×2 (08:15→21:11)
[2022-08-02] MEDS: MULTIVIT W/MINERALS TAB (THERAGRAN M) PO SCH (08:15)
[2022-08-02] MEDS: CHLORTHALIDONE 25 MG TAB PO SCH (08:16)
--- NOTE | 2022-08-02 08:16 | PM&R Progress Note ---
Subjective HPI/CC On Admission Date Seen by Provider: Aug 02, 2022 Time Seen by Provider: 11:30 Subjective/Events-last exam 08/02/2022: No major issues Pain controlled Moving around well DC tomorrow Immobilizer off Eliquis restarted 08/01/2022: Immobilizer will be DC this afternoon Eliquis will restart Dressing changes will be taught by nurse 07/31/2022: Doing well Immobilizer will DC tomorrow afternoon Eliquis held Pain improved 07/30/2022: Immobilizer is in place left leg for total 72 hours Less drainage Holding Eliquis for now 07/29/2022: Doing well Dr Moses updated and he recommended stopping Eliquis for short time so we will hold Monitoring closely 07/28/2022: Had episode of drainage from the knee this morning but now can move his knee better No fever No falls BP stable 07/27/2022: Much improved overall Pain controlled BM+ Laxatives ordered Labs reviewed No issues except ice machine leaked last night Review of Systems General: Fatigue, Malaise Objective Exam Vital Signs Vital Signs Date Time Temp Pulse Resp B/P (MAP) Pulse Ox O2 Delivery O2 Flow Rate FiO2 08/02/22 21:10 100 Room Air 08/02/22 20:16 36.7 90 20 133/80 (97) Capillary Refill : General Appearance: No Apparent Distress, WD/WN, Chronically ill, Obese HEENT: PERRL/EOMI, Normal ENT Inspection, Pharynx Normal Neck: Full Range of Motion, Normal Inspection, Non Tender, Supple, Carotid Bruit Respiratory: Chest Non Tender, Lungs Clear, Normal Breath Sounds, No Accessory Muscle Use, No Respiratory Distress Cardiovascular: Regular Rate, Rhythm, No Edema, No Gallop, No JVD, No Murmur, Normal Peripheral Pulses Gastrointestinal: Normal Bowel Sounds, No Organomegaly, No Pulsatile Mass, Non Tender, Soft Back: Normal Inspection, No CVA Tenderness, No Vertebral Tenderness Extremity: Normal Capillary Refill, Normal Inspection, Normal Range of Motion (except left leg and right leg is also limited), Non Tender, No Calf Tenderness, No Pedal Edema Neurologic/Psychiatric: Alert, Oriented x3, No Motor/Sensory Deficits, Normal Mood/Affect Skin: Normal Color, Warm/Dry Lymphatic: No Adenopathy Results/Procedures Lab Patient resulted labs reviewed. FIM Transfers Therapy Code Descriptions/Definitions Functional [place] Measure: 0=Not Assessed/NA 4=Minimal Assistance 1=Total Assistance 5=Supervision or Setup 2=Maximal Assistance 6=Modified [place] 3=Moderate Assistance 7=Complete IndependenceSCALE: Activities may be completed with or without assistive devices. 1-Mrknlrclgc-jqoaxow completes the activity by him/herself with no assistance from a helper. 5-Set-up or Clean-up Assistance-helper sets up or cleans up; patient completes activity. [place] assists only prior to or following the activity. 4-Supervision or Touching Assistance-helper provides verbal cues and/or touching/steadying and/or contact guard assistance as patient completes activity. Assistance may be provided throughout the activity or intermittently. 3-Partial/Moderate Assistance-helper does LESS THAN HALF the effort. [place] lifts, holds or supports trunk or limbs, but provides less than half the effort. 2-Substantial/Maximal Assistance-helper does MORE THAN HALF the effort. [place] lifts or holds trunk or limbs and provides more than half the effort. 8-Rfknnwocg-fvwbfd does ALL the effort. Patient does none of the effort to complete the activity. Or, the assistance of 2 or more helpers is required for the patient to complete the activity. If activity was not attempted, code reason: 7-Patient Refused. 9-Not Applicable-not attempted and the patient did not perform the activity before the current illness, exacerbation or injury. 10-Not Attempted due to Environmental Limitations-(lack of equipment, weather restraints, etc.). 88-Not Attempted due to Medical Conditions or Safety Concerns. Roll Left to Right (QC): 6 Sit to Lying (QC): 5 Sit to Stand (QC): 5 Chair/Mrb-mr-Tcgza Xfer(QC): 4 Car Transfer (QC): 3 (mod (A) to lift (L) LE into car) Gait Training Does the Patient Walk?: Yes Distance: 250' Walk 10 feet (QC): 5 Walk 50 ft with 2 Turns(QC): 5 Walk 150 ft (QC): 5 Walking 10ft/uneven surface-QC: 88 Gait Persons Needed: 1 Gait Assistive Device: FWW Wheelchair Training Does the Pt Use a Wheelchair?: Yes Wheel 50 ft with 2 turns (QC): 4 Wheel 150 ft (QC): 4 Type of Wheelchair: Manual Stair Training #of Steps: 0 1 Step (curb) (QC): 88 (patient's difficulty advancing (B) LE's did not allow for safe curb step ambulation) 4 Steps (QC): 88 12 Steps (QC): 88 Balance Picking up an Object (QC): 88 ADL-Treatment Eating (QC): 6 Oral Hygiene (QC): 6 Shower/Bathe Self (QC): 5 Upper Body Dressing (QC): 5 Lower Body Dressing (QC): 3 (min A. Education on AE) On/Off Footwear (QC): 2 (Max A overall. Education on AE) Toileting Hygiene (QC): 4 (CGA in stand.) Toilet Transfer (QC): 3 (min A sit to stand from toilet.) Assessment/Plan Assessment and Plan Assess & Plan/Chief Complaint Assessment: s/p left total knee replacement Chronic right knee pain Gout HTN Obesity Chronic constipation Bloody drainage for incision-holding Eliquis 07/29/22 and will restart 08/02/22 Plan: BM regimen Pain meds Aggressive PT OT CPM 07/27/2022: Monitor closely Ice machine 07/28/2022: Monitor drainage Will reach out to Dr Moses tomorrow 07/29/2022: Hold Eliquis 07/30/2022: Maintain immobilizer 07/31/2022: Immobilizer 1 more day 08/01/2022: Restart Eliquis tomorrow 08/02/2022: Monitor closely (1) S/P total knee arthroplasty PHIL ORTIZ DO Aug 02, 2022 08:16
[2022-08-02] MEDS: SENNA W/DOCUSATE (SENOKOT S) TABLET PO SCH ×2 (08:17→21:12)
[2022-08-02] MEDS: polyethylene glycoL POWDER 17 GM (MIRALAX) PACK PO SCH ×2 (08:17→09:30)
[2022-08-02] MEDS: DOCUSATE SODIUM 100 MG (COLACE) CAP PO SCH ×2 (08:17→21:13)
--- NOTE | 2022-08-02 10:22 | Occupational Ther Daily Note ---
OT Current Status-Daily Note Subjective Pt alert, sitting on EOB. Pt agrees to therapy. No c/o pain. Mental Status/Objective Patient Orientation: Person, Place, Time, Situation ADL-Treatment Pt agrees to shower. Independent with supine to EOB. Independent eating. Sitting on shower bench using grabbars, hand held shower and LH sponge pt completes shower independently. Setup for UBD. Min A and education footwear(soc k aide), pt will have difficulty with sock aide due to limitation with ankle flexion. AE for lower body dressing, SBA. After therapy, pt laying on bed with nrsg changing knee dressing. All needs met in room. Therapy Code Descriptions/Definitions Functional [place] Measure: 0=Not Assessed/NA 4=Minimal Assistance 1=Total Assistance 5=Supervision or Setup 2=Maximal Assistance 6=Modified [place] 3=Moderate Assistance 7=Complete IndependenceSCALE: Activities may be completed with or without assistive devices. 7-Sfsjdrecce-ybwtcps completes the activity by him/herself with no assistance from a helper. 5-Set-up or Clean-up Assistance-helper sets up or cleans up; patient completes activity. [place] assists only prior to or following the activity. 4-Supervision or Touching Assistance-helper provides verbal cues and/or touching/steadying and/or contact guard assistance as patient completes activity. Assistance may be provided throughout the activity or intermittently. 3-Partial/Moderate Assistance-helper does LESS THAN HALF the effort. [place] lifts, holds or supports trunk or limbs, but provides less than half the effort. 2-Substantial/Maximal Assistance-helper does MORE THAN HALF the effort. [place] lifts or holds trunk or limbs and provides more than half the effort. 7-Wbqwwmqoa-jsauwq does ALL the effort. Patient does none of the effort to complete the activity. Or, the assistance of 2 or more helpers is required for the patient to complete the activity. If activity was not attempted, code reason: 7-Patient Refused. 9-Not Applicable-not attempted and the patient did not perform the activity before the current illness, exacerbation or injury. 10-Not Attempted due to Environmental Limitations-(lack of equipment, weather restraints, etc.). 88-Not Attempted due to Medical Conditions or Safety Concerns. Eating (QC): 6 Oral Hygiene (QC): 6 Shower/Bathe Self (QC): 6 Upper Body Dressing (QC): 5 Lower Body Dressing (QC): 4 On/Off Footwear: 3 Toileting Hygiene (QC): 4 Toilet Transfer (QC): 4 BIMS CAM BIMS Expression of Ideas and Wants: Without Difficulty Understanding Verbal Content: Understands Brief Interview/Mental Status: Yes IRF NOHEMY BIMS: IRF NOHEMY BIMS Response (Comments) Value Repitition of Three Words Three 3 Recalls Socks Yes, No Cue Required 2 Recalls Blue Yes, No Cue Required 2 Recalls Bed Yes, No Cue Required 2 Year Correct 3 Month Accurate Within 5 Days 2 Day Correct 1 Total 15 Patient Normally Able to Recal: Current Session, Location of own room, Staff Names and faces, That he/she in a hsp Should Staff Asses. Mental St.: No CAM Mental Status Change/Baseline: 0 Inattention: 0 Disorganized thinkin Altered level of consciousness: 0 OT Short Term Goals Short Term Goals Time Frame: Aug 02, 2022 Shower/bathe self: 4 Lower body dressin Putting on/taking off footwear: 4 OT Extra Hand Goals Extra Hand Goals Time Frame: Aug 23, 2022 Acute change in mental status: 0 Inattention: 0 Disorganized thinkin Altered level of consciousness: 0 Eating (QC): 6 (met) Oral Hygiene (QC): 6 (met) Toileting Hygiene (QC): 6 (not met) Shower/Bathe Self (QC): 6 (not met) Upper Body Dressing (QC): 6 (not met) Lower Body Dressing (QC): 6 (not met) On/Off Footwear (QC): 6 (not met) Additional Goals: 1-Demonstrate ADL Tasks, 2-Verbalize Understanding, 3- ImproveStrength/[place]iv[place] 1=Demonstrate adherence to instructed precautions during ADL tasks. 2=Patient will verbalize/demonstrate understanding of assistive devices/anabel fications for ADL. 3=Patient will improve strength/tolerance for activity to enable patient to perform ADL's. OT Education/Plan Problem List/Assessment Assessment: Decreased Activ Tolerance, Impaired Self-Care Skills Discharge Recommendations Plan/Recommendations: Continue POC Treatment Plan/Plan of Care Patient would benefit from OT for education, treatment and training to promote independence in ADL's, mobility, safety and/or upper extremity function for ADL's. Plan of Care: ADL Retraining, Functional Mobility, Group Exercise/Act as Ind, UE Funct Exercise/Act Treatment Duration: Aug 23, 2022 Frequency: At least 5 of 7 days/Wk (IRF) Estimated Hrs Per Day: 1.5 hours per day Agreement: Yes Rehab Potential: Good Time Start Time: 10:00 Stop Time: 11:00 DATE: Aug 02, 2022 Total Time Billed (hr/min): 60 Billed Treatment Time 1 visit-ADL 4 (60 min) BAMBI ROSE Aug 02, 2022 10:22
--- NOTE | 2022-08-02 12:06 | Physical Therapy Progress Note ---
Therapy Progress Note S: Pain report no increased pain in (L) knee with gait, functional activities with PT this date, but states his (R)/non-op knee is the most problematic. He is planning to D/C home tomorrow with his and a FWW for mobility. Patient required encouragement to participate this am. - the change of removing the immobilizer has caused some anxiety - explained that patient can now be more mobile and that gait/transfer should be less difficult. O: Knee immobilizer was D/C'd yesterday. Participating with BATCH AND FURNACE OPERATOR during this a.m. session. FOM's obtained by this PT, as well as girth AROM measures (L) knee as follows: Elderly Mobility Scale: (compared to 08/22 at eval) KOOS JR: 8 = 66% function (compared to 19 or 39% function at eval). (L) knee joint line girth 46.7 cm (compared to 48 cm at eval) AROM 10-90 (L) knee (compared to 15-90 at evaluation -- no flexion improvement due to wearing knee immobilizer x 72 hours. Please see treatment note by BATCH AND FURNACE OPERATOR for QC's. A: Patient demonstrates improvement and safe mobility for return home 08/03/22. Goals met and exceeded for Elderly Mobility Scale, KOOS JR, and joint line girth. Has FWW and HEP for home. P: Plan is to D/C home tomorrow. Recommend continued PT following D/C from [facility]. Jennie Sosa PT Aug 02, 2022 12:06
--- NOTE | 2022-08-02 12:23 | Physical Therapy Daily Note ---
PT Daily Note-Current Subjective Pt sitting at EOB w/SP present upon arrival. Pt agrees to PT. Pain Numeric Pain Scale: 2 Location: Right, Left Location Body Site: Knee Pain Description: Ache, Burning Section J - Health Conditions 1. Rarely or not at all 2. Occasionally 3. Frequently 4. Almost constantly 8. Unable to answer Pain Effect on Sleep: 3 Pain Interference with Therapy: 2 Pain Interference w/Day-to-Day: 2 Mental Status Patient Orientation: Person, Place, Situation Attachments: [place] Transfers SCALE: Activities may be completed with or without assistive devices. 2-Amhohvmctx-epnyvms completes the activity by him/herself with no assistance from a helper. 5-Set-up or Clean-up Assistance-helper sets up or cleans up; patient completes activity. [place] assists only prior to or following the activity. 4-Supervision or Touching Assistance-helper provides verbal cues and/or touching/steadying and/or contact guard assistance as patient completes activity. Assistance may be provided throughout the activity or intermittently. 3-Partial/Moderate Assistance-helper does LESS THAN HALF the effort. [place] lifts, holds or supports trunk or limbs, but provides less than half the effort. 2-Substantial/Maximal Assistance-helper does MORE THAN HALF the effort. [place] lifts or holds trunk or limbs and provides more than half the effort. 2-Mrkaekmnw-tnuozz does ALL the effort. Patient does none of the effort to complete the activity. Or, the assistance of 2 or more helpers is required for the patient to complete the activity. If activity was not attempted, code reason: 7-Patient Refused. 9-Not Applicable-not attempted and the patient did not perform the activity before the current illness, exacerbation or injury. 10-Not Attempted due to Environmental Limitations-(lack of equipment, weather restraints, etc.). 88-Not Attempted due to Medical Conditions or Safety Concerns. Roll Left & Right (QC): 6 Sit to Lying (QC): 6 Lying to Sitting/Side of Bed(Q: 6 Sit to Stand (QC): 6 Chair/Ucx-gz-Ftwlg Xfer(QC): 6 Toilet Transfer (QC): 6 Car Transfer (QC): 6 Weight Bearing Right Lower Extremity: Right Weight Bearing/Tolerated Left Lower Extremity: Left Weight Bearing/Tolerated Gait Training Does the Patient Walk?: Yes Distance: 230' Walk 10 feet (QC): 5 Walk 50 ft with 2 Turns(QC): 5 Walk 150 ft (QC): 5 Walking 10ft/uneven surface-QC: 5 Gait Assistive Device: FWW Stair Training Stair Training: Handrails/: uses walker #of Steps: 6 1 Step (curb) (QC): 5 4 Steps (QC): 5 12 Steps (QC): 88 Stairs: Pattern: Step to Balance Picking up an Object (QC): 5 Special Test Comments Pt uses logging shovel operator which he has at home. Treatments Pt completes QC scoring items listed above. Pt returns to room to rest at end of tx. All needs met, call light in hand. Assessment Current Status: Good Progress Pt needs increased encouragment as pt feels uneasy about progress for home leila. w/confidence since having Knee Immobilizer removed yesterday. QC and safety items tested and pt is found to be safe to return home leila. w/HH as SW has set up. PT Short Term Goals Short Term Goals Time Frame: Jul 31, 2022 PT Healthcare Social Worker Goals Healthcare Social Worker Goals PT Healthcare Social Worker Goals Time Frame: Aug 09, 2022 Roll Left & Right (QC): 6 Sit to Lying (QC): 6 Lying-Sitting on Side/Bed(QC): 6 Sit to Stand (QC): 6 ( to FWW) Chair/Zqe-ou-Aqrnr Xfer(QC): 6 (with FWW) Toilet Transfer (QC): 6 (with FWW) Car Transfer (QC): 6 ( with FWW) Does the Patient Walk: Yes Walk 10 feet (QC): 6 ( with FWW with improved step length (B).) Walk 50ft with 2 Turns (QC): 6 (with FWW with improved step length (B)) Walk 150 ft (QC): 5 (with FWW (increased distances may be limited by (R)/nonsurgical knee pain)) Walking 10ft on Uneven Surface: 6 (with FWW) 1 Step (curb) (QC): 5 (with FWW) 4 Steps (QC): 4 (with (B) rails (may be limited by (R)/nonsurgical knee pain)) 12 Steps (QC): 9 Picking up an Object (QC): 5 Does the Pt use WC or Scooter?: Yes Wheel 50 feet with 2 turns (QC: 6 Type: Manual Wheel 150 feet: 6 Type: Manual PT Plan Problem List Problem List: Activity Tolerance Treatment/Plan Treatment Plan: Continue Plan of Care Treatment Plan: Bed Mobility, Education, Functional Activity [place], Functional Strength, Group Therapy, Gait, Safety, Therapeutic Exercise, Transfers, Other Treatment Duration: Aug 09, 2022 Frequency: At least 5 of 7 days/Wk (IRF) Estimated Hrs Per Day: 1.5 hours per day Patient and/or Family Agrees t: Yes Safety Risks/Education Patient Education: Correct Positioning, Safety Issues Teaching Recipient: Patient, Significant Other Teaching Methods: Discussion Response to Teaching: Verbalize Understanding Time Time In: 1100 Time Out: 1200 DATE: Aug 02, 2022 Total Billed Treatment Time: 60 Total Billed Treatment 1, GT x2 (30m) & FA x2 (30m) LING KNUTSON SPECIAL SERVICES DIRECTOR Aug 02, 2022 12:23
--- NOTE | 2022-08-02 14:01 | Occupational Ther Daily Note ---
OT Current Status-Daily Note Subjective Pt alert, sitting EOB finishing up with PT. Pt agrees to OT session. No c/o pain. Mental Status/Objective Patient Orientation: Person, Place, Time, Situation ADL-Treatment Therapy Code Descriptions/Definitions Functional [place] Measure: 0=Not Assessed/NA 4=Minimal Assistance 1=Total Assistance 5=Supervision or Setup 2=Maximal Assistance 6=Modified [place] 3=Moderate Assistance 7=Complete IndependenceSCALE: Activities may be completed with or without assistive devices. 2-Wtpmfsibwv-vlzitis completes the activity by him/herself with no assistance from a helper. 5-Set-up or Clean-up Assistance-helper sets up or cleans up; patient completes activity. [place] assists only prior to or following the activity. 4-Supervision or Touching Assistance-helper provides verbal cues and/or rylee brandin/steadying and/or contact guard assistance as patient completes activity. Assistance may be provided throughout the activity or intermittently. 3-Partial/Moderate Assistance-helper does LESS THAN HALF the effort. [place] lifts, holds or supports trunk or limbs, but provides less than half the effort. 2-Substantial/Maximal Assistance-helper does MORE THAN HALF the effort. [place] lifts or holds trunk or limbs and provides more than half the effort. 5-Lqafkbitm-myfeuv does ALL the effort. Patient does none of the effort to complete the activity. Or, the assistance of 2 or more helpers is required for the patient to complete the activity. If activity was not attempted, code reason: 7-Patient Refused. 9-Not Applicable-not attempted and the patient did not perform the activity before the current illness, exacerbation or injury. 10-Not Attempted due to Environmental Limitations-(lack of equipment, weather restraints, etc.). 88-Not Attempted due to Medical Conditions or Safety Concerns. Other Treatment Reviewed B UE strengthening exercises with theraband and theratubing to increase strength for daily functional tasks. Pt able to complete B UE exercises with minimal cues for correct technique, 1 set 10 reps each (9 exercises). After therapy, pt lying in bed with call light/phone in reach. All needs met in room. OT Short Term Goals Short Term Goals Time Frame: Aug 02, 2022 Shower/bathe self: 4 Lower body dressin Putting on/taking off footwear: 4 OT Propulsion Machinery Service Engineer Goals Propulsion Machinery Service Engineer Goals Time Frame: Aug 23, 2022 Acute change in mental status: 0 Inattention: 0 Disorganized thinkin Altered level of consciousness: 0 Eating (QC): 6 (met) Oral Hygiene (QC): 6 (met) Toileting Hygiene (QC): 6 (not met) Shower/Bathe Self (QC): 6 (not met) Upper Body Dressing (QC): 6 (not met) Lower Body Dressing (QC): 6 (not met) On/Off Footwear (QC): 6 (not met) Additional Goals: 1-Demonstrate ADL Tasks, 2-Verbalize Understanding, 3- ImproveStrength/[place] 1=Demonstrate adherence to instructed precautions during ADL tasks. 2=Patient will verbalize/demonstrate understanding of assistive devices/m odifications for ADL. 3=Patient will improve strength/tolerance for activity to enable patient to perform ADL's. OT Education/Plan Problem List/Assessment Assessment: Decreased Activ Tolerance, Decreased UE Strength Discharge Recommendations Plan/Recommendations: Continue POC Treatment Plan/Plan of Care Patient would benefit from OT for education, treatment and training to promote independence in ADL's, mobility, safety and/or upper extremity function for ADL's. Plan of Care: ADL Retraining, Functional Mobility, Group Exercise/Act as Ind, UE Funct Exercise/Act Treatment Duration: Aug 23, 2022 Frequency: At least 5 of 7 days/Wk (IRF) Estimated Hrs Per Day: 1.5 hours per day Agreement: Yes Rehab Potential: Good Time Start Time: 13:30 Stop Time: 14:00 DATE: Aug 02, 2022 Total Time Billed (hr/min): 30 Billed Treatment Time 1 visit-EX 2 (30 min) BAMBI ROSE Aug 02, 2022 14:01
--- NOTE | 2022-08-02 15:15 | Physical Therapy Daily Note ---
PT Daily Note-Current Subjective Pt sitting at EOB w/Sp present upon arrival. Pt agrees to PT. Pain Section J - Health Conditions 1. Rarely or not at all 2. Occasionally 3. Frequently 4. Almost constantly 8. Unable to answer Pain Effect on Sleep: 3 Pain Interference with Therapy: 2 Pain Interference w/Day-to-Day: 2 Mental Status Patient Orientation: Person, Place, Situation Attachments: Polar Pack Transfers SCALE: Activities may be completed with or without assistive devices. 5-Xvagsjcdxr-qqjiyxs completes the activity by him/herself with no assistance from a helper. 5-Set-up or Clean-up Assistance-helper sets up or cleans up; patient completes activity. [place] assists only prior to or following the activity. 4-Supervision or Touching Assistance-helper provides verbal cues and/or touching/steadying and/or contact guard assistance as patient completes activity. Assistance may be provided throughout the activity or intermittently. 3-Partial/Moderate Assistance-helper does LESS THAN HALF the effort. [place] lifts, holds or supports trunk or limbs, but provides less than half the effort. 2-Substantial/Maximal Assistance-helper does MORE THAN HALF the effort. [place] lifts or holds trunk or limbs and provides more than half the effort. 7-Ebfscjlcz-iqcdta does ALL the effort. Patient does none of the effort to complete the activity. Or, the assistance of 2 or more helpers is required for the patient to complete the activity. If activity was not attempted, code reason: 7-Patient Refused. 9-Not Applicable-not attempted and the patient did not perform the activity before the current illness, exacerbation or injury. 10-Not Attempted due to Environmental Limitations-(lack of equipment, weather restraints, etc.). 88-Not Attempted due to Medical Conditions or Safety Concerns. Sit to Stand (QC): 6 Weight Bearing Right Lower Extremity: Right Weight Bearing/Tolerated Left Lower Extremity: Left Weight Bearing/Tolerated Exercises Seated Therapy Exercises: Ankle pumps, Long arc quads, Hip flexion, Hip abd/add, Glut set Seated Reps: 15 Treatments Pt able to complete EX as well as discusses helpful way to decrease swelling. FRUIT OR NUT GROWER refers to RICE (Rest, Ice, Compression & Elevation) & pt asks about another pain med/anti-inflammatory besides an NSAID. Pt resting at end of tx. All needs met as AMEZCUA arrives for tx. Assessment Current Status: Good Progress Pt's retention on educational topics is not the best. PT Short Term Goals Short Term Goals Time Frame: Jul 31, 2022 PT Penitentiary Goals Penitentiary Goals PT Penitentiary Goals Time Frame: Aug 09, 2022 Roll Left & Right (QC): 6 Sit to Lying (QC): 6 Lying-Sitting on Side/Bed(QC): 6 Sit to Stand (QC): 6 ( to FWW) Chair/Vjd-mk-Zrhsp Xfer(QC): 6 (with FWW) Toilet Transfer (QC): 6 (with FWW) Car Transfer (QC): 6 ( with FWW) Does the Patient Walk: Yes Walk 10 feet (QC): 6 ( with FWW with improved step length (B).) Walk 50ft with 2 Turns (QC): 6 (with FWW with improved step length (B)) Walk 150 ft (QC): 5 (with FWW (increased distances may be limited by (R)/nonsurgical knee pain)) Walking 10ft on Uneven Surface: 6 (with FWW) 1 Step (curb) (QC): 5 (with FWW) 4 Steps (QC): 4 (with (B) rails (may be limited by (R)/nonsurgical knee pain)) 12 Steps (QC): 9 Picking up an Object (QC): 5 Does the Pt use WC or Scooter?: Yes Wheel 50 feet with 2 turns (QC: 6 Type: Manual Wheel 150 feet: 6 Type: Manual PT Plan Problem List Problem List: Activity Tolerance Treatment/Plan Treatment Plan: Continue Plan of Care Treatment Plan: Bed Mobility, Education, Functional Activity [place], Functional Strength, Group Therapy, Gait, Safety, Therapeutic Exercise, Transfers, Other Treatment Duration: Aug 09, 2022 Frequency: At least 5 of 7 days/Wk (IRF) Estimated Hrs Per Day: 1.5 hours per day Patient and/or Family Agrees t: Yes Safety Risks/Education Patient Education: Reviewed Use of Ice, Disease Process, Safety Issues Teaching Recipient: Patient, Significant Other Teaching Methods: Discussion Response to Teaching: Verbalize Understanding Time Time In: 1300 Time Out: 1330 DATE: Aug 02, 2022 Total Billed Treatment Time: 30 Total Billed Treatment 1, FA (15m) & EX (15m) LING KNUTSON PTA Aug 02, 2022 15:15
[2022-08-02] MEDS: PSYLLIUM PO SCH (17:11)
[2022-08-02 20:16] VITALS: BP 133/80
[2022-08-02] MEDS: PANTOPRAZOLE 40 MG (PROTONIX) TAB PO SCH (21:11)
[2022-08-02] MEDS: ALLOPURINOL 300 MG (ZYLOPRIM) TAB PO SCH (21:11)
[2022-08-03] MEDS ORDERED: OXC5T PO (07:08)
[2022-08-03] MEDS ORDERED: TRM50T PO (07:08)
--- NOTE | 2022-08-03 07:09 | D/C HH Face to Face Order ---
D/C HH Face to Face Orders Reconcile Patient Problems Problems Reviewed?: Yes Instructions for Patient HH Patient Instructions/FollowUp: PCP as scheduled Physician to follow Patient: PCP Discharge Diet for Home: No Restrictions Patient Problems: Knee replacement Patient Data-Allergies,Ht & Wt Patient Allergies: Coded Allergies: NSAIDS (Non-Steroidal Anti-Inflamma (Verified Allergy, Unknown, 07/26/22) STOMACH PROBLEMS. Penicillins (Verified Allergy, Unknown, Rash, 07/26/22) Sulfa (Sulfonamide Antibiotics) (Verified Allergy, Unknown, 07/26/22) codeine (Verified Allergy, Unknown, 07/26/22) SHORTNESS OF BREATH/WHEEZING hydrocodone (Verified Allergy, Unknown, 07/26/22) meperidine (Verified Allergy, Unknown, 07/26/22) COUGH, STOPS BREATHING. Home Health Need/Face to Face Date of Face to Face: Aug 03, 2022 Clinical Findings: Instability, Muscle weakness I have seen Pt myqv-xm-bvsl: Yes Discharged To: Home Diagnosis/Conditions: Knee replacement Patient is Homebound due to: Robin fall risk due to instabilty, Muscle weakness Homebound Status Due to the above stated illness, injury or surgical procedure (medical condition or diagnosis) and associated clinical findings, the patient is homebound because of his/her inability to leave home except with aid of a supportive device and/or person AND leaving the home requires a considerable and taxing effort or is medically contraindicated. Pt req the following assistanc: Walker Home Health Nursing Orders Home Health Services Order: Nursing Services, Mds Rn-Evaluate & Treat, Physical Therapy-Evaluate & Treat Certify Stmt I certify that this patient is under my care and that I, a nurse practitioner or a physician; a information assistant working with me, had a face to face encounter that - meets the physician face to face encounter requirements with this patient as dated. PHIL ORTIZ DO Aug 03, 2022 07:09
--- NOTE | 2022-08-03 07:10 | Discharge Summary ---
Diagnosis/Chief Complaint Date of Admission Jul 26, 2022 at 12:04 Date of Discharge Discharge Date: Aug 03, 2022 Discharge Diagnosis Assessment: s/p left total knee replacement Chronic right knee pain Gout HTN Obesity Chronic constipation Bloody drainage for incision-holding Eliquis 07/29/22 and will restart 08/02/22 Plan: BM regimen Pain meds Aggressive PT OT CPM 07/27/2022: Monitor closely Ice machine 07/28/2022: Monitor drainage Will reach out to Dr Moses tomorrow 07/29/2022: Hold Eliquis 07/30/2022: Maintain immobilizer 07/31/2022: Immobilizer 1 more day 08/01/2022: Restart Eliquis tomorrow 08/02/2022: Monitor closely (1) S/P total knee arthroplasty Discharge Summary Discharge Physical Examination Allergies: Coded Allergies: NSAIDS (Non-Steroidal Anti-Inflamma (Verified Allergy, Unknown, 07/26/22) STOMACH PROBLEMS. Penicillins (Verified Allergy, Unknown, Rash, 07/26/22) Sulfa (Sulfonamide Antibiotics) (Verified Allergy, Unknown, 07/26/22) codeine (Verified Allergy, Unknown, 07/26/22) SHORTNESS OF BREATH/WHEEZING hydrocodone (Verified Allergy, Unknown, 07/26/22) meperidine (Verified Allergy, Unknown, 07/26/22) COUGH, STOPS BREATHING. Vitals & I&Os Vital Signs Date Time Temp Pulse Resp B/P (MAP) Pulse Ox O2 Delivery O2 Flow Rate FiO2 08/03/22 14:10 36.6 71 18 112/69 97 Room Air General Appearance: Alert, Oriented X3, Cooperative Psych/Mental Status: Mental Status NL Hospital Course Was the Problem List Reviewed?: Yes Standard course after he arrived from [facility] after left knee replacement with slow recovery. Home meds were restarted and he was able to regain function quickly. Overall he did well but he began bleeding and draining from the knee which Dr Moses recommended immobilizer and hold Eliquis for 3 days which resolved the issue and he was able to DC in improved condition. Labs (last 24 hrs) Laboratory Tests 07/27/22 05:44: White Blood Count 14.9H, Red Blood Count 3.91L, Hemoglobin 12.6L, Hematocrit 37L , Mean Corpuscular Volume 94, Mean Corpuscular Hemoglobin 32, Mean Corpuscular Hemoglobin Concent 34, Red Cell Distribution Width 14.1, Platelet Count 256, Mean Platelet Volume 9.8, Immature Granulocyte % (Auto) 1, Neutrophils (%) (Auto) 74, Lymphocytes (%) (Auto) 11L, Monocytes (%) (Auto) 13H, Eosinophils (%) (Auto) 1, Basophils (%) (Auto) 0, Neutrophils # (Auto) 11.0H, Lymphocytes # (Auto) 1.6, Monocytes # (Auto) 2.0H, Eosinophils # (Auto) 0.1, Basophils # (Auto) 0.1, Immature Granulocyte # (Auto) 0.1, Neutrophils % (Manual) 77, Lymphocytes % (Manual) 13, Monocytes % (Manual) 8, Eosinophils % (Manual) 2, Blood Morphology Comment NORMAL, Sodium Level 135, Potassium Level 3.4L, Chloride Level 97L, Carbon Dioxide Level 28, Anion Gap 10, Blood Urea Nitrogen 12, Creatinine 0.76, Estimat Glomerular Filtration Rate 93, BUN/Creatinine Ratio 16, Glucose Level 108H, Calcium Level 8.4L, Corrected Calcium 9.0, Iron Level 20L, Total Bilirubin 2.3H, Aspartate Amino Transf (AST/SGOT) 31, Alanine Aminotransferase (ALT/SGPT) 20, Alkaline Phosphatase 68, Total Protein 5.6L, Albumin 3.3, Vitamin B12 Level 351 07/29/22 05:10: White Blood Count 12.0H, Red Blood Count 3.95L, Hemoglobin 12.7L, Hematocrit 36L , Mean Corpuscular Volume 92, Mean Corpuscular Hemoglobin 32, Mean Corpuscular Hemoglobin Concent 35, Red Cell Distribution Width 13.4, Platelet Count 318, Mean Platelet Volume 10.2, Immature Granulocyte % (Auto) 1, Neutrophils (%) (Auto) 70, Lymphocytes (%) (Auto) 13, Monocytes (%) (Auto) 13H, Eosinophils (%) (Auto) 3, Basophils (%) (Auto) 0, Neutrophils # (Auto) 8.5H, Lymphocytes # (Auto) 1.5, Monocytes # (Auto) 1.5H, Eosinophils # (Auto) 0.4H, Basophils # (Auto) 0.0, Immature Granulocyte # (Auto) 0.1, Sodium Level 136, Potassium Level 2.9L, Chloride Level 96L, Carbon Dioxide Level 27, Anion Gap 13, Blood Urea Nitrogen 15, Creatinine 0.79, Estimat Glomerular Filtration Rate 91, BUN/Creatinine Ratio 19, Glucose Level 113H, Calcium Level 8.4L, Corrected Calcium 9.1, Total Bilirubin 1.7H, Aspartate Amino Transf (AST/SGOT) 31, Alanine Aminotransferase (ALT/SGPT) 25, Alkaline Phosphatase 69, Total Protein 5.6L, Albumin 3.1L Pending Labs Laboratory Tests 07/27/22 05:44: White Blood Count 14.9, Red Blood Count 3.91, Hemoglobin 12.6, Hematocrit 37, Mean Corpuscular Volume 94, Mean Corpuscular Hemoglobin 32, Mean Corpuscular Hemoglobin Concent 34, Red Cell Distribution Width 14.1, Platelet Count 256, Mean Platelet Volume 9.8, Immature Granulocyte % (Auto) 1, Neutrophils (%) (Auto) 74, Lymphocytes (%) (Auto) 11, Monocytes (%) (Auto) 13, Eosinophils (%) (Auto) 1, Basophils (%) (Auto) 0, Neutrophils # (Auto) 11.0, Lymphocytes # (Auto) 1.6, Monocytes # (Auto) 2.0, Eosinophils # (Auto) 0.1, Basophils # (Auto) 0.1, Immature Granulocyte # (Auto) 0.1, Neutrophils % (Manual) 77, Lymphocytes % (Manual) 13, Monocytes % (Manual) 8, Eosinophils % (Manual) 2, Blood Morphology Comment NORMAL, Sodium Level 135, Potassium Level 3.4, Chloride Level 97, Carbon Dioxide Level 28, Anion Gap 10, Blood Urea Nitrogen 12, Creatinine 0.76, Estimat Glomerular Filtration Rate 93, BUN/Creatinine Ratio 16, Glucose Level 108, Calcium Level 8.4, Corrected Calcium 9.0, Iron Level 20, Total Bilirubin 2.3, Aspartate Amino Transf (AST/SGOT) 31, Alanine Aminotransferase (ALT/SGPT) 20, Alkaline Phosphatase 68, Total Protein 5.6, Albumin 3.3, Vitamin B12 Level 351 07/29/22 05:10: White Blood Count 12.0, Red Blood Count 3.95, Hemoglobin 12.7, Hematocrit 36, Mean Corpuscular Volume 92, Mean Corpuscular Hemoglobin 32, Mean Corpuscular Hemoglobin Concent 35, Red Cell Distribution Width 13.4, Platelet Count 318, Mean Platelet Volume 10.2, Immature Granulocyte % (Auto) 1, Neutrophils (%) (Aut o) 70, Lymphocytes (%) (Auto) 13, Monocytes (%) (Auto) 13, Eosinophils (%) (Auto) 3, Basophils (%) (Auto) 0, Neutrophils # (Auto) 8.5, Lymphocytes # (Auto) 1.5, Monocytes # (Auto) 1.5, Eosinophils # (Auto) 0.4, Basophils # (Auto) 0.0, Immature Granulocyte # (Auto) 0.1, Sodium Level 136, Potassium Level 2.9, Chloride Level 96, Carbon Dioxide Level 27, Anion Gap 13, Blood Urea Nitrogen 15, Creatinine 0.79, Estimat Glomerular Filtration Rate 91, BUN/Creatinine Ratio 19, Glucose Level 113, Calcium Level 8.4, Corrected Calcium 9.1, Total Bilirubin 1.7, Aspartate Amino Transf (AST/SGOT) 31, Alanine Aminotransferase (ALT/SGPT) 25, Alkaline Phosphatase 69, Total Protein 5.6, Albumin 3.1 Discharge Home Medications: Active Scripts Active Tramadol HCl 50 Mg Tablet 50 Mg PO TID PRN Oxyir Tablet (Oxycodone HCl) 5 Mg Tab 5 Mg PO BID PRN Reported Metamucil Fiber Singles Packet (Psyllium Husk/Aspartame) 3.4 Gram Powd.pack 1 Packet PO 1800 W/DINNER Probiotic (L.acidoph & Paracasei,B.lactis) 10 Billion Cell Capsule 1 Each PO DAILY Miralax (Polyethylene Glycol 3350) 17 Gram Powd.pack 17 Gm PO DAILY AFTER BRKFST Pantoprazole Sodium 40 Mg Tablet.dr 40 Mg PO HS Multivitamin 1 Each Tablet 1 Each PO DAILY Dicyclomine HCl 10 Mg Capsule 10 Mg PO QID PRN Co Q-10 (Ubidecarenone) 100 Mg Capsule 100 Mg PO DAILY Chlorthalidone 25 Mg Tablet 25 Mg PO DAILY Eliquis (Apixaban) 5 Mg Tablet 5 Mg PO BID Allopurinol 300 Mg Tablet 300 Mg PO HS Tylenol (Acetaminophen) 325 Mg Tablet 650 Mg PO BID Instructions to patient/family Please see electronic discharge instructions given to patient. Diagnosis/Problems Diagnosis/Problems (1) S/P total knee arthroplasty PHIL ORTIZ DO Aug 03, 2022 07:10
[2022-08-03 07:30] VITALS: BP 112/69
[2022-08-03] MEDS: MULTIVIT W/MINERALS TAB (THERAGRAN M) PO SCH (08:17)
[2022-08-03] MEDS: KCL 10 MEQ TAB (MICRO K) PO SCH (08:17)
[2022-08-03] MEDS: DOCUSATE SODIUM 100 MG (COLACE) CAP PO SCH (08:17)
[2022-08-03] MEDS: LACTOBACILLUS ACIDOPHILUS (PROBIOTIC) CAPSULE PO SCH (08:17)
[2022-08-03] MEDS: APIXABAN 5 MG (ELIQUIS) TABLET PO SCH (08:17)
[2022-08-03] MEDS: SENNA W/DOCUSATE (SENOKOT S) TABLET PO SCH (08:17)
[2022-08-03] MEDS: ACETAMINOPHEN 325 MG TABLET PO SCH (08:19)
[2022-08-03] MEDS: polyethylene glycoL POWDER 17 GM (MIRALAX) PACK PO SCH (08:19)
[2022-08-03] MEDS: CHLORTHALIDONE 25 MG TAB PO SCH (08:25)
--- NOTE | 2022-08-03 09:10 | Therapy Team Discharge Summary ---
Therapy Discharge Summary Discharge Recommendations Date of Discharge Physical Therapy Roll Left to Right (QC): 6 Sit to Lying (QC): 6 Lying to Sitting/Side of Bed(Q: 6 Sit to Stand (QC): 6 Chair/Xig-pq-Gzqlz Xfer(QC): 6 Toilet Transfer (QC): 5 Car Transfer (QC): 6 Does the Patient Walk: Yes Mode of Locomotion: Both Anticipated Mode of Locomotion: Both Walk 10 feet (QC): 5 Walk 50 ft with 2 Turns(QC): 5 Walk 150 ft (QC): 5 Walking 10ft on uneven surface: 5 Gait Assistive Device: FWW Does the Pt Use a Wheelchair: Yes Wheel 50 ft with 2 turns (QC): 4 Wheel 150 ft (QC): 4 Type of Wheelchair: Manual #of Steps: 6 1 Step (curb) (QC): 5 4 Steps (QC): 5 12 Steps (QC): 88 Balance Sitting Static: Normal Balance Sitting Dynamic: Good Balance-Standing Static: Poor Picking up an Object (QC): 5 Occupational Therapy Pt admitted to [facility] s/p L TKA. At [facility], pt was independent with ADLs and functional mobility. Upon intial evaluation, pt was independent with eating, required set up with oral care and UE dressing, mod A LE dressing and max A footwear. OT tx focused on increasing BUE strength and activity tolerance, and increasing safety and independence with ADLS and functional mobility. Pt made functional progress towards goals, but only attained LTG for eating and oral care. Pt discharging home with spouse support, d/c from OT. Decreased Activ Tolerance, Decreased UE Strength Eating (QC): 6 Oral Hygiene (QC): 6 Shower/Bathe Self (QC): 6 Upper Body Dressing (QC): 5 Lower Body Dressing (QC): 4 On/Off Footwear (QC): 3 Toileting Hygiene (QC): 4 PT Intermediate Goals Intermediate Goals PT Intermediate Goals Time Frame: Aug 09, 2022 Roll Left to Right (QC): 6 Sit to Lying (QC): 6 Lying-Sitting on Side/Bed(QC): 6 Sit to Stand (QC): 6 ( to FWW) Chair/Oad-dh-Xqifl Xfer(QC): 6 (with FWW) Toilet/Commode Transfer (QC): 6 (with FWW) Car Transfer (QC): 6 ( with FWW) Does the Patient Walk: Yes Walk 10 feet (QC): 6 ( with FWW with improved step length (B).) Walk 10ft-Uneven Surface(QC): 6 (with FWW) Walk 50ft with 2 Turns (QC): 6 (with FWW with improved step length (B)) Walk 150 ft (QC): 5 (with FWW (increased distances may be limited by (R)/nonsurgical knee pain)) Does the Pt use WC or Scooter?: Yes Wheel 50 feet with 2 turns (QC: 6 Type: Manual Wheel 150 feet: 6 Type: Manual 1 Step (curb) (QC): 5 (with FWW) 4 Steps (QC): 4 (with (B) rails (may be limited by (R)/nonsurgical knee pain)) 12 Steps (QC): 9 Picking up an Object (QC): 5 OT Intermediate Goals Band Head Saw Operator Goals Time Frame: Aug 23, 2022 Acute change in mental status: 0 Inattention: 0 Disorganized thinkin Altered level of consciousness: 0 Eating (QC): 6 (met) Oral Hygiene (QC): 6 (met) Toileting Hygiene (QC): 6 (not met) Shower/Bathe Self (QC): 6 (not met) Upper Body Dressing (QC): 6 (not met) Lower Body Dressing (QC): 6 (not met) On/Off Footwear (QC): 6 (not met) Additional Goals: 1-Demonstrate ADL Tasks, 2-Verbalize Understanding, 3- ImproveStrength/[place] 1=Demonstrate adherence to instructed precautions during ADL tasks. 2=Patient will verbalize/demonstrate understanding of assistive devices/modifications for ADL. 3=Patient will improve strength/tolerance for activity to enable patient to perform ADL's. ODILIA NUNN OT Aug 03, 2022 09:10
[2022-08-03 14:10] VITALS: BP 112/69
--- NOTE | 2022-08-05 15:47 | Therapy Team Discharge Summary ---
Therapy Discharge Summary Discharge Recommendations Date of Discharge Aug 03, 2022 at 14:10 Physical Therapy Patient seen on ARU s/p (L) TKR. Patient was ordered to wear knee immobilizer x 72 hours while on unit, which limited his knee flexion progress. Functional level at time of D/C: Roll Left & Right (QC): 6 Sit to Lying (QC): 6 Lying to Sitting/Side of Bed(Q: 6 Sit to Stand (QC): 6 to FWW Chair/Wrj-rv-Fxqdr Xfer(QC): 6 with FWW Toilet Transfer (QC): 6 with FWW Car Transfer (QC): 6 with FWW Gait Training Does the Patient Walk?: Yes Distance: 230' Walk 10 feet (QC): 5 - SBA with FWW Walk 50 ft with 2 Turns(QC): 5 SBA with FWW Walk 150 ft (QC): 5 SBA with FWW Walking 10ft/uneven surface-QC: 5 SBA with FWW Gait Assistive Device: FWW Stair Training Stair Training: Handrails/: uses walker #of Steps: 6 1 Step (curb) (QC): 5 SBA with FWW 4 Steps (QC): 5 SBA with (B) handrails 12 Steps (QC): 88 Stairs: Pattern: Step to Balance Picking up an Object (QC): 6 with mill beam fitter and walker Special Test Comments: Pt uses mill beam fitter which he has at home. Elderly Mobility Scale: 15/20 (compared to 4/20 at [facility]) KOOS JR: 8 = 66% function (compared to 19 or 39% function at [facility]). (L) knee joint line girth 46.7 cm (compared to 48 cm at [facility]) AROM 10-90 (L) knee (compared to 15-90 at evaluation -- no flexion improvement due to wearing knee immobilizer x 72 hours. QC and safety items tested and pt is found to be safe to return home with assist of and home health services. Recommend outpatient P.T. ron for patient when Home Health discharges patient. Roll Left to Right (QC): 6 Sit to Lying (QC): 6 Lying to Sitting/Side of Bed(Q: 6 Sit to Stand (QC): 6 Chair/Tio-fw-Iagzu Xfer(QC): 6 Toilet Transfer (QC): 5 Car Transfer (QC): 6 Does the Patient Walk: Yes Mode of Locomotion: Both Anticipated Mode of Locomotion: Both Walk 10 feet (QC): 5 Walk 50 ft with 2 Turns(QC): 5 Walk 150 ft (QC): 5 Walking 10ft on uneven surface: 5 Gait Assistive Device: FWW Does the Pt Use a Wheelchair: Yes Wheel 50 ft with 2 turns (QC): 4 Wheel 150 ft (QC): 4 Type of Wheelchair: Manual #of Steps: 6 1 Step (curb) (QC): 5 4 Steps (QC): 5 12 Steps (QC): 88 Balance Sitting Static: Normal Balance Sitting Dynamic: Good Balance-Standing Static: Poor Picking up an Object (QC): 6 Occupational Therapy Decreased Activ Tolerance, Decreased UE Strength Eating (QC): 6 Oral Hygiene (QC): 6 Shower/Bathe Self (QC): 6 Upper Body Dressing (QC): 5 Lower Body Dressing (QC): 4 On/Off Footwear (QC): 3 Toileting Hygiene (QC): 4 PT Jail Goals Jail Goals PT Jail Goals Time Frame: Aug 09, 2022 Roll Left to Right (QC): 6 Sit to Lying (QC): 6 Lying-Sitting on Side/Bed(QC): 6 Sit to Stand (QC): 6 ( to FWW) Chair/Lxf-ew-Csdme Xfer(QC): 6 (with FWW) Toilet/Commode Transfer (QC): 6 (with FWW) Car Transfer (QC): 6 ( with FWW) Does the Patient Walk: Yes Walk 10 feet (QC): 6 ( with FWW with improved step length (B).) Walk 10ft-Uneven Surface(QC): 6 (with FWW) Walk 50ft with 2 Turns (QC): 6 (with FWW with improved step length (B)) Walk 150 ft (QC): 5 (with FWW (increased distances may be limited by (R)/nonsurgical knee pain)) Does the Pt use WC or Scooter?: Yes Wheel 50 feet with 2 turns (QC: 6 Type: Manual Wheel 150 feet: 6 Type: Manual 1 Step (curb) (QC): 5 (with FWW) 4 Steps (QC): 4 (with (B) rails (may be limited by (R)/nonsurgical knee pain)) 12 Steps (QC): 9 Picking up an Object (QC): 5 OT Claim Processing Specialist Goals Claim Processing Specialist Goals Time Frame: Aug 23, 2022 Acute change in mental status: 0 Inattention: 0 Disorganized thinkin Altered level of consciousness: 0 Eating (QC): 6 (met) Oral Hygiene (QC): 6 (met) Toileting Hygiene (QC): 6 (not met) Shower/Bathe Self (QC): 6 (not met) Upper Body Dressing (QC): 6 (not met) Lower Body Dressing (QC): 6 (not met) On/Off Footwear (QC): 6 (not met) Additional Goals: 1-Demonstrate ADL Tasks, 2-Verbalize Understanding, 3- ImproveStrength/[place] 1=Demonstrate adherence to instructed precautions during ADL tasks. 2=Patient will verbalize/demonstrate understanding of assistive devices/modifications for ADL. 3=Patient will improve strength/tolerance for activity to enable patient to perform ADL's. Jennie Sosa PT Aug 05, 2022 15:47
== END 2022-08-03 14:10 | disposition home health service (06) | DRG 560 ==
PROVIDERS: ADMIT Internal Medicine; ATTEND Internal Medicine
DX: Z47.1 Aftercare following joint replacement surgery (principal); L76.22 Postprocedural hemorrhage of skin and subcutaneous tissue following other procedure; Z96.652 Presence of left artificial knee joint; M17.11 Unilateral primary osteoarthritis, right knee; K59.09 Other constipation; I10 Essential (primary) hypertension; K21.9 Gastro-esophageal reflux disease without esophagitis; R53.81 Other malaise; R53.1 Weakness; E66.9 Obesity, unspecified; F32.A Depression, unspecified; M10.9 Gout, unspecified; T45.515A Adverse effect of anticoagulants, initial encounter; Z68.38 Body mass index [BMI] 38.0-38.9, adult; Z87.891 Personal history of nicotine dependence; Z79.01 Long term (current) use of anticoagulants; Z79.899 Other long term (current) drug therapy; Z88.6 Allergy status to analgesic agent; Z88.5 Allergy status to narcotic agent; Z88.0 Allergy status to penicillin; Z88.2 Allergy status to sulfonamides; Z88.8 Allergy status to other drugs, medicaments and biological substances
CPT/HCPCS: 36415; 80053; 82607; 83540; 85007; 85025; 85027